=== PATIENT | male | born 1975 | race Caucasian/White ===

== ENCOUNTER 2024-04-10 08:25 | Emergency (ER) | payer SELFPAY ==
--- NOTE | ~2024-04-10 | XR_ITS ---
EXAMINATION: XR FOOT, LEFT CLINICAL INFORMATION: Ulcer great toe R/O osteomyelitis COMPARISON: None available. TECHNIQUE: AP, lateral, and oblique views of the left foot. FINDINGS: Soft tissue defect and swelling of the distal hallux. This is consistent with ulcer. No underlying bony erosion or focal osteopenia. No fracture, dislocation, or focal bony abnormality. There is normal alignment. Normal plantar arch. Joint spaces appear normal. There is a tiny plantar calcaneal spur. XR/XR foot LT min 3V IMPRESSION: 1. Soft tissue ulceration with mild soft tissue swelling of the hallux. No underlying bony erosion or evidence of osteomyelitis radiographically. Electronically signed by: Brodie Pierce MD 04/10/2024 11:03 AM LORE
--- NOTE | ~2024-04-10 | US_ITS ---
EXAMINATION: US TRIPLEX LOWER EXTREMITY, LEFT CLINICAL INFORMATION: Left lower extremity swelling, rule out DVT. COMPARISON: None available. TECHNIQUE: Color-flow triplex imaging with spectral analysis and compression Doppler were performed on the left lower extremity. FINDINGS: Nonocclusive thrombus is seen throughout the proximal, mid, and distal LEFT femoral vein, and extending throughout the left popliteal vein. The left deep calf veins remain patent. There is edema of the left lower extremity. Normal respiratory variation, normal compression and augmented flow are noted throughout the RIGHT lower extremity. The visualized common femoral vein, superficial femoral vein, profunda femoral vein, popliteal vein and midcalf peroneal and posterior tibial venous segments show no evidence of deep venous thrombosis. There is no Connolly's cyst. US/US venous duplex LE LT IMPRESSION: -Positive LEFT lower extremity DVT involving the femoral and popliteal veins. -Negative for RIGHT lower extremity present DVT. Electronically signed by: Brodie Pierce MD 04/10/2024 11:06 AM LORE
[2024-04-10 08:31] VITALS: BP 147/83; PULSE 86; RESP 20; TEMP 36.5; O2SAT 96; BMI 38.4
--- NOTE | 2024-04-10 09:14 | ED.EXTPRO ---
HPI - Extremity Problem General Chief complaint: Extremity Problem Stated complaint: Bilateral foot swelling Time Seen by Provider: 04/10/24 08:55 Source: patient and other (Girlfriend, Rachna) Mode of arrival: ambulatory Limitations: no limitations History of Present Illness ED Provider: Dr. Agustin Norton HPI Narrative: 48-year-old male with a history of diabetes, noncompliant with medications secondary to loss of insurance who presents emergency department for evaluation of lower extremity swelling. 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 Patient states that he had a blister to his left great toe in his left foot and leg became red and the swelling got worse a proximally 1 month prior. He states that he was seen at [facility] and was started on 2 antibiotics for 2 weeks. He states he completed the antibiotics and the redness and swelling did not improve. He states that since being on the antibiotics he was also developed diarrhea which she states is loose stool 6 times per day. Patient states that he did get a new job and he was having difficulty getting his work boots on due to the swelling. He denied fever, chills, chest pain, shortness of breath. He has had urinary frequency and increased thirst but he was not been on his diabetic medications he was not been checking his blood sugars. Related Data Previous Rx's ?Medication ?Instructions ?Recorded apixaban 5 mg (74 tabs) tablets in 5 mg PO BID #74 ea 04/10/24 a dose pack (Eliquis DVT-PE Treat 30D Start) apixaban 5 mg tablet (Eliquis) 5 mg PO Q12H 30 days #60 tabs 04/10/24 metformin 1,000 mg tablet 1,000 mg PO BID 30 days #60 tabs 04/10/24 Allergies Allergy/AdvReac Type Severity Reaction Status Date / Time No Known Allergies Allergy Verified 04/10/24 08:33 Review of Systems Review of Systems: Yes all other systems are reviewed and are negative [facility] Past Medical History Medical History (Updated 04/10/24 @ 12:20 by Agustin Norton MD) Hernia Diabetes Surgical History (Updated 04/10/24 @ 09:16 by Beatris Whelan) H/O adenoidectomy Social History Social History Smoked in Last 30 Days: No Use of substances other than those prescribed or required for medical reasons: No Advance Directives: No Advance Directives Information Provided: Yes Physical Exam Vital Signs: Vital Signs: Last Vital Signs Temp 98.8 F 04/10/24 10:32 Pulse 78 04/10/24 10:32 Resp 17 04/10/24 10:32 BP 144/80 H 04/10/24 10:32 Pulse Ox 93 04/10/24 10:32 O2 Del Method Room Air 04/10/24 10:32 BMI result Body Mass Index 38.4 Vital signs revealed an elevated blood pressure of 147/83 otherwise unremarkable Exam: General: Awake, alert in no distress, weight is 131.9 kg, elevated BMI 38.4 kg per m2 Head: Normocephalic, atraumatic EENT: PERRL, Lids normal, sclera normal, conjunctiva normal, nose normal , ears normal, throat without erythema or exudates Neck: Supple, no adenopathy Lung: breath sounds symmetric, no wheezing, rales or rhonchi Chest: symmetric movement, nontender Heart: regular rate and rhythm, normal S1, S2 no murmurs or rubs Abdomen: Obese, soft, non-tender, nondistended, normal bowel sounds Back: no vertebral tenderness, no CVAT Extremities: Patient has 1+ pitting edema to the left lower extremity from the foot to just below the knee, he has trace to 1+ pitting edema right lower extremity. Erythema with increased warmth to of the left foot to just below the knee. Patient does have a superficial skin ulcer the dorsal medial aspect of the right great toe Neuro: Awake, alert, oriented, normal speech, cranial nerves intact, moves all extremities symmetrically Psych: Pleasant, cooperative Medical Decision Making Medical Decision Making MDM Narrative: 48-year-old male with a history of diabetes, noncompliant with medications secondary to loss of insurance who presents emergency department for evaluation of bilateral lower extremity swelling, left greater than right with erythema and increased warmth of the left lower extremity. Patient states he was left lower extremities is chronically larger than the right secondary to a Connolly's cyst. Patient was seen several weeks prior at [facility] and diagnosed with cellulitis of the left lower extremity and treated with 2 antibiotics with no improvement of his symptoms. Patient states his left lower extremity swelling is gotten worse and I was right lower extremity is swollen as well. He also has a nonhealing skin ulcer to his left great toe. Patient was had urinary frequency and increased thirst with no other concerning systemic symptoms. Vital signs revealed an elevated blood pressure otherwise unremarkable. Physical examination did reveal asymmetry of the lower extremities left greater than right with erythema and increased warmth on the left compared to the right and a nonhealing skin ulcer to the dorsal medial aspect of the left great Toe. Differential diagnosis: ?Includes but is not limited to cellulitis, osteomyelitis of the left great toe, DVT, peripheral edema, hyperglycemia, DKA, electrolyte abnormalities, anemia, C difficile colitis, infectious diarrhea, infectious diarrhea Following evaluation was ordered: CBC, CMP, BNP, beta hydroxybutyrate, VBG, lactic acid, blood cultures x2, magnesium, ESR, CRP, C diff, GI panel Course: My interpretation patient's laboratory evaluation is as follows: CBC was normal. Glucose elevated 390. Electrolytes and LFTs were normal. CRP and ESR were normal. Lactic acid was elevated at 2.3. Patient's pH was low at 7.34. Beta hydroxybutyrate was normal. BNP was below detectable limits. Hemoglobin A1c was elevated 13 Ultrasound of the left lower extremities consistent with DVT. X-ray of the left foot did not reveal any evidence for osteomyelitis of the great toe. Patient was given metformin 1000 mg, normal saline IV x1 L for his elevated glucose. He was given his 1st dose of Eliquis 10 mg orally for his DVT. Patient states that his health insurance through his work should kick in next month and he was given a manufacture coupon for his 1st month of Eliquis. Patient was not had a PCP and he was given the numbers for [facility] providers, and our on-call provider, Dr. Putnam, Admission/Observation Consideration of admission/observation: Escalation of care including admission/observation considered (Yes) Lab Data MDM Lab Attestation statement: I reviewed the patient's lab results. 04/10/24 09:25 04/10/24 09:25 Labs: Lab Results 04/10/24 04/10/24 04/10/24 Range/Units 09:25 09:42 09:47 WBC 5.9 (4.8-10.8) X10*3/uL RBC 5.18 (4.60-5.80) X10*6/uL Hgb 15.4 (14.0-18.0) g/dl Hct 45.0 (42.0-52.0) % MCV 86.9 (80.0-98.0) fL MCH 29.7 (27.0-33.0) pg MCHC 34.2 (31.0-36.0) g/dl RDW 12.1 (11.0-16.0) % Plt Count 259 (160-400) X10*3/uL MPV 10.1 (9.4-12.4) fL Immature Gran % (Auto) 0.3 (0.0-0.4) % Neut % (Auto) 69.0 (45-73) % Lymph % (Auto) 16.0 L (20-40) % Orange % (Auto) 9.6 (2-11) % Eos % (Auto) 4.4 H (0-4) % Baso % (Auto) 0.7 (0-2) % Lymph # (Auto) 1.0 L (1.2-4.9) X10*3/uL Orange # (Auto) 0.6 (0.1-1.2) X10*3/uL Eos # (Auto) 0.3 (0.0-0.4) X10*3/uL Baso # (Auto) 0.0 (0.0-0.2) X10*3/uL Abs Immat Gran (auto) 0.02 (0.00-0.03) X10*3/uL Absolute Neuts (auto) 4.1 (2.0-8.3) x10*3/uL Absolute Nucleated RBC 0.000 (0.0-0.012) X10*3/uL Nucleated RBC % (auto) 0.0 (0.0-0.2) /100WBC ESR 11 (0-15) MM/HR VBG pH 7.34 (7.32-7.43) VBG pCO2 56 mmHg VBG pO2 33 mmHg VBG HCO3 31 H (22-26) mmol/L VBG O2 Saturation 49.0 % VBG Base Excess 3.6 mmol/L Sodium 136 (135-145) mmol/L Potassium 4.5 (3.3-5.1) mmol/L Chloride 104 (96-108) mmol/L Carbon Dioxide 23 (22-29) mmol/L Anion Gap 14 (12-20) BUN 16 (9-16) mg/dL Creatinine 1.24 (0.5-1.4) mg/dL Estim Creat Clear Calc 101.5 Estimated GFR > 60 Random Glucose 390 H* (60-115) mg/dL Estimat Average Glucose 326 mg/dL Hemoglobin A1c % 13.0 H (<6.0) % Lactic Acid 2.3 H* (0.5-2.0) mmol/L Calcium 10.1 (8.4-10.2) mg/dL Magnesium 2.2 (1.6-2.6) mg/dL Total Bilirubin 0.5 (0.0-1.0) mg/dL AST 23 (5-37) U/L ALT 41 H (0-40) U/L Alkaline Phosphatase 71 (39-117) U/L C-Reactive Protein 0.26 (< or = 0.50) mg/dL B-Natriuretic Peptide < 10 (<100) pg/mL Total Protein 7.4 (6.5-8.0) g/dL Albumin 4.2 (3.5-5.0) g/dL Beta-Hydroxybutyrate 0.11 (0.02-0.27) mmol/L Independent Interpretation I performed an independent interpretation of an: Plain X-Ray Interpretation: My interpretation of the patient's left foot x-ray is as follows: No acute disease Radiology Impression Discussion of test interpretation with radiology: I have reviewed the radiologist's reading. Radiologist Impression: XR foot LT min 3V IMPRESSION: 1. Soft tissue ulceration with mild soft tissue swelling of the hallux. No underlying bony erosion or evidence of osteomyelitis radiographically. Electronically signed by: Brodie Pierce MD 04/10/2024 11:03 AM EST Dictated By: Brodie Pierce MD venous duplex LE LT IMPRESSION: -Positive LEFT lower extremity DVT involving the femoral and popliteal veins. -Negative for RIGHT lower extremity present DVT. Electronically signed by: Brodie Pierce MD 04/10/2024 11:06 AM EST Independent Historian Clinical information obtained from an independent historian. History obtained from or confirmed by: Other (Girlfriend) Prescription Management I considered prescription management with: Other (Anticoagulant: Eliquis, antihyperglycemic: Metformin) Chronic Conditions Patient?s care impacted by: Diabetes Critical Care Time Critical Care Time Critical Care Time: Yes Total Critical Care Time: 35 Attestation: Critical Care: The patient was critically ill with a high probability of imminent or life threatening deterioration. I spent greater than 30 minutes of discontinuous time evaluating the patient,delivering critical care at the bedside, discussing and evaluating pertinent data with consultants. Critical care time does not include time spent performing separately billable procedures or teaching. Total time spent performing critical care was 35 minutes. Discharge Plan Discharge Clinical Impression: Acute hyperglycemia Deep vein thrombosis of lower extremity Qualifiers: Affected thrombotic vein of extremity: femoral Chronicity: acute Laterality: left Qualified Code(s): I82.412 - Acute embolism and thrombosis of left femoral vein Patient Disposition: Home, Self-Care Instructions: Deep Vein Thrombosis (ED) Additional Instructions: Your blood work did reveal an elevated glucose of 390 and an elevated hemoglobin A1c of 10 (normal is between 6 and 7). This is consistent with your diabetes being out of control. I am restarting your metformin 1000 mg every 12 hours. Try to get this medication through good [facility] and this may make the medication more affordable The x-ray of your left foot did not reveal any infection of the bone of the great toe. This is reassuring. The nonhealing ulcer on your toes probably caused by your diabetes. Your white blood cell count, ESR and CRP (inflammatory markers) he has are normal suggesting that you do not have an infection of your toe or leg is the cause of the redness and swelling. The sound of your left leg did reveal blood clots in your legs which is consistent with a deep venous thrombosis (DVT). This is treated with blood thinners for 3-6 months. Take Eliquis (apixaban) 5 mg pills 2 pills every 12 hours for 1 week and then 1 pill every 12 hours for 3-6 months. Your doctor needs to decide how long you are on this medication and when you can stop it. Do not stop this medication unless you are advised to do sound by your doctor. Please return to the emergency department if your symptoms get worse or if you develop any symptoms that are concerning to you. Try calling the following numbers to see if you can get a primary care provider to help you with your medical problems. [facility] PCP referral line [facility] Adult primary care and family medicine [facility] Dr Velez off his is on-call for the medicine service today. I want you to call his office today to see if he has any availability to follow you up for your blood clot in your left leg and help manage her diabetes. Prescriptions: New Eliquis DVT-PE Treat 30D Start 5 mg (74 tabs) tablets,dose pack 5 mg PO BID Qty: 74 0RF Eliquis 5 mg tablet 5 mg PO Q12H 30 Days Qty: 60 6RF metformin 1,000 mg tablet 1,000 mg PO BID 30 Days Qty: 60 6RF Print Language: Hungarian
[2024-04-10 09:31] LABS: MANUAL DIFF FLAG NO
[2024-04-10 09:34] LABS: Basophils Percent Auto 0.7 % (0-2); Eosinophils Absolute Auto 0.3 X10*3/uL (0.0-0.4); Eosinophils Percent Auto 4.4 % (0-4); Hemoglobin 15.4 g/dl (14.0-18.0); Imm Gran Abs Auto 0.02 X10*3/uL (0.00-0.03); Imm Gran Pct Auto 0.3 % (0.0-0.4); Mean Corpuscular HGB Conc 34.2 g/dl (31.0-36.0); Mean Corpuscular Hemoglobin 29.7 pg (27.0-33.0); Mean Corpuscular Volume 86.9 fL (80.0-98.0); Mean Platelet Volume 10.1 fL (9.4-12.4); Monocytes Absolute Auto 0.6 X10*3/uL (0.1-1.2); Monocytes Percent Auto 9.6 % (2-11); Neutrophils Absolute Auto 4.1 x10*3/uL (2.0-8.3); Platelet Count 259 X10*3/uL (160-400); Red Blood Count 5.18 X10*6/uL (4.60-5.80); Red Cell Distribution Width 12.1 % (11.0-16.0); White Blood Count 5.9 X10*3/uL (4.8-10.8)
[2024-04-10 09:42] LABS: Estimated Average Glucose 326 mg/dL; Hemoglobin A1C 466.6351 umol/L; Total Hemoglobin (HGBA1C) 3933.8856 umol/L
[2024-04-10 09:48] LABS: C Reactive Protein 0.26 mg/dL (< or = 0.50)
[2024-04-10 09:51] LABS: Venous Blood Gas Refer to POC result
[2024-04-10 09:52] LABS: VBG Base Excess 3.6 mmol/L; VBG HCO3 31 mmol/L (22-26); VBG pCO2 56 mmHg; VBG pH 7.34 (7.32-7.43); VBG pO2 33 mmHg
[2024-04-10 09:54] LABS: Alanine Aminotransferase 41 U/L (0-40); Albumin Level 4.2 g/dL (3.5-5.0); Alkaline Phosphatase 71 U/L (39-117); Anion Gap 14 (12-20); Aspartate Amino Transferase 23 U/L (5-37); Bilirubin Total 0.5 mg/dL (0.0-1.0); Blood Urea Nitrogen 16 mg/dL (9-16); Calcium 10.1 mg/dL (8.4-10.2); Carbon Dioxide 23 mmol/L (22-29); Chloride 104 mmol/L (96-108); Creatinine Clr Calc Pharmacy 101.5; Estimated Glomerular Filt Rate > 60; Glucose Random 390 mg/dL (60-115); Potassium 4.5 mmol/L (3.3-5.1); Sodium 136 mmol/L (135-145); Total Protein 7.4 g/dL (6.5-8.0)
[2024-04-10 09:55] LABS: Lactic Acid 2.3 mmol/L (0.5-2.0)
[2024-04-10 09:56] LABS: B Type Natriuretic Peptide < 10 pg/mL (<100)
[2024-04-10 10:03] LABS: Beta-Hydroxybutyrate 0.11 mmol/L (0.02-0.27); Magnesium 2.2 mg/dL (1.6-2.6)
[2024-04-10 10:25] LABS: Erythrocyte Sedimentation Rate 11 MM/HR (0-15)
[2024-04-10 10:32] VITALS: BP 144/80; PULSE 78; RESP 17; TEMP 37.1; O2SAT 93
[2024-04-10 11:30] LABS: Reflex Lactate? Lactic Acid Added
--- NOTE | 2024-04-10 11:36 | MHC.EDTECH ---
Per provider lactic acid repeat to be cancelled. This tech made RN aware.
[2024-04-10] MEDS: 0.9 % Sodium Chloride 1,000 ML 999 ML IV (11:56)
[2024-04-10] MEDS: Apixaban 5 MG TABLET 10 MG PO (11:59)
[2024-04-10] MEDS: metFORMIN HCl 1,000 MG TABLET 1000 MG PO (11:59)
[2024-04-10 12:00] LABS: Glucose, Whole Blood 289 mg/dL (60-115)
[2024-04-10 12:22] VITALS: BP 147/94; PULSE 83; RESP 18; TEMP 36.9; O2SAT 94
[2024-04-10 13:31] VITALS: BP 147/94; PULSE 83; RESP 18; TEMP 36.9; O2SAT 94
== END 2024-04-10 13:32 | disposition home or self-care (01) ==
PROVIDERS: Emergency Provider Emergency Medicine Emergency Medical Services
DX: I82.412 Acute embolism and thrombosis of left femoral vein (principal); E11.65 Type 2 diabetes mellitus with hyperglycemia
CPT/HCPCS: 36415; 73630; 80053; 82010; 82803; 82947; 83036; 83605; 83735; 83880; 85025; 85652; 86140; 87040; 93971; 99284

== ENCOUNTER → 2024-04-10 09:12 | Outpatient (BNV) | payer SELFPAY | PROVIDERS: Emergency Provider Emergency Medicine Emergency Medical Services; Visit Provider Radiology Diagnostic Radiology | DX: I82.432 Acute embolism and thrombosis of left popliteal vein (principal); L97.529 Non-pressure chronic ulcer of other part of left foot with unspecified severity | CPT/HCPCS: 73630; 93971 ==

== ENCOUNTER 2024-06-25 21:30 | Inpatient (IN) | payer OTHER, SELFPAY ==
--- NOTE | ~2024-06-25 | US_ITS ---
CLINICAL HISTORY: swelling, hx dvt Venous duplex ultrasound left lower extremity Comparison: US/SR - US VENOUS DUPLEX LE LT - 04/10/24 10:12 EST Findings: Redemonstration of thrombus within the left superficial femoral and popliteal veins, similar prior exam. A duplicated left femoral vein appears patent. No popliteal cyst. Right common femoral vein is imaged and patent. IMPRESSION: Redemonstration of deep vein thrombosis with thrombus within the left superficial femoral and popliteal veins, similar prior exam. This document has been electronically signed by: Sage Campa MD, PHD on 06/26/2024 03:43:49
[2024-06-25 21:46] VITALS: BP 137/81; PULSE 110; RESP 20; TEMP 37; O2SAT 95; BMI 39.3
[2024-06-25 21:59] LABS: MANUAL DIFF FLAG NO
[2024-06-25 22:00] LABS: Basophils Percent Auto 0.3 % (0-2); Eosinophils Absolute Auto 0.3 X10*3/uL (0.0-0.4); Eosinophils Percent Auto 2.7 % (0-4); Hemoglobin 15.3 g/dl (14.0-18.0); Imm Gran Abs Auto 0.04 X10*3/uL (0.00-0.03); Imm Gran Pct Auto 0.3 % (0.0-0.4); Lymphocytes Absolute Auto 1.7 X10*3/uL (1.2-4.9); Lymphocytes Percent Auto 14.1 % (20-40); Mean Corpuscular HGB Conc 34.8 g/dl (31.0-36.0); Mean Corpuscular Hemoglobin 29.7 pg (27.0-33.0); Mean Corpuscular Volume 85.3 fL (80.0-98.0); Monocytes Absolute Auto 1.2 X10*3/uL (0.1-1.2); Monocytes Percent Auto 9.6 % (2-11); Neutrophils Absolute Auto 8.8 x10*3/uL (2.0-8.3); Platelet Count 249 X10*3/uL (160-400); Red Blood Count 5.16 X10*6/uL (4.60-5.80); Red Cell Distribution Width 12.3 % (11.0-16.0)
[2024-06-25 22:16] LABS: Alanine Aminotransferase 39 U/L (0-40); Albumin Level 4.4 g/dL (3.5-5.0); Alkaline Phosphatase 64 U/L (39-117); Anion Gap 14 (12-20); Aspartate Amino Transferase 22 U/L (5-37); Bilirubin Total 0.4 mg/dL (0.0-1.0); Blood Urea Nitrogen 19 mg/dL (9-16); Calcium 9.7 mg/dL (8.4-10.2); Carbon Dioxide 26 mmol/L (22-29); Chloride 101 mmol/L (96-108); Creatinine Clr Calc Pharmacy 122.5; Estimated Glomerular Filt Rate > 60; Glucose Random 328 mg/dL (60-115); Potassium 4.3 mmol/L (3.3-5.1); Sodium 137 mmol/L (135-145); Total Protein 7.9 g/dL (6.5-8.0)
[2024-06-26] VITALS (9 sets, daily range): BP systolic 124–144; BP diastolic 66–82; PULSE 104–114; RESP 14–20; TEMP 36.7–37.3; O2SAT 93–98
[2024-06-26] MEDS: Acetaminophen 325 MG TABLET 650 MG PO (01:39)
--- OUTSIDE RECORDS SUMMARY | 2024-06-26 04:05 | XMS_ITS | Encounter Summary ---
Author Organization [facility] Address [address] [place] [address] Care Team Providers Care Plant Pathology Teacher Name Role Phone Edelmira Sage MD Primary Care Provider Encounter Details Date Type Department Care Team (Late st Contact Info) Description 05/30/2023 [employer] Message [facility] [employer] Management [address] [place] [address] Mychart, Generic Provider [address] [place], [place] [id number] payment plan Social History Tobacco Use Types Packs/Day Years Used Date Smoking Tobacco: Never Smokeless Tobacco: Never Alcohol Use Standard Drinks/Week Comments Yes 0 (1 standard drink = 0.6 oz pur e alcohol) 1-2 times a month. 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
--- OUTSIDE RECORDS SUMMARY | 2024-06-26 04:05 | XMS_ITS | Clinical Summary ---
Author Organization [facility] Address [address] [place] [address] Care Team Providers Care Purchasing Clerk Name Role Phone Edelmira Sage MD Primary Care Provider [phone] Allergies Active Allergy Reactions Criticality Noted Date Comments Empagliflozin Suicidal ideation High 11/13/2022 Medications * This document contains information received from the source organization and may not represent a complete record from that organization. cetirizine (ZyrTEC) 10 mg tablet Take 10 mg by mouth daily. Active lisinopriL (PRINIVIL,ZESTR IL) 5 mg tablet Take 5 mg by mouth daily. Active fish oil 340-1,000 mg capsule Take 1,000 mg by mouth once a day. 1200 mg daily Active flash glucose scanning reader ([facility] Venus 14 Day [place]) [facility] Use as directed. 1 each 0 Active rosuvastatin (CRESTOR) 40 mg tablet Take 1 tablet (40 mg total) by mouth daily. 90 tablet 3 1 Active valACYclovir (VALTREX) 1 gram tablet as needed. Active tirzepatide 15 mg/0.5 mL pen injector Inject 0.5 mL (15 mg total) under the skin every 7 days. After 4 doses of 12.5 mg 6 mL 3 3 Active glipiZIDE XL (GLUCOTROL XL) 2.5 mg tablet Take 3 tablets (7.5 mg total) by mouth 2 times a day. 180 tablet 11 3 Active Additional Information Patient taking differently: 2.5 mgoralDaily, Reported on 01/29/2023 methylPREDNISol one (MEDROL DOSEPACK) 4 mg tabletIndicatio ns:Cervical radiculopathy,C hronic right shoulder pain Take 1 tablet (4 mg total) by mouth See admin instructions. Use as directed by package instructions 21 tablet 3 Active flash glucose sensor (FreeStyle Venus 14 Day Sensor) kitIndications: Type 2 diabetes mellitus with hyperglycemia, without long-term current use of insulin ([facility]) Use as directed. 2 kit 3 Active tirzepatide (Mounjaro) 10 mg/0.5 mL pen injector Inject 0.5 mL (10 mg total) under the skin every 7 days. 2 mL 1 06/19/2023 5:02 AM EST 4 Active metFORMIN ER (GLUCOPHAGE XR) 500 mg tablet TAKE 2 TABLETS BY MOUTH 2 TIMES A DAY WITH MEALS. 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 Pt appears motivated now to be compliant with medication and lifestyle modifications: increase physical activity low cholesterol diet, weight control and daily exercise discussed, home glucose monitoring emphasized, all medications, side effects and compliance discussed carefully and glycohemoglobin and other lab monitoring discussed Prevention and treatment of hypoglycemia. Prevention and treatment of hypoglycemia was discussed. Please find orders and patient instructions details in my progress note. Briefly: will benefit from GIP/GLP-1 - titrate as tolerated tamanna instruction provided to , including: purpose and action, New Pen Setup, injection technique, sites for injection. Potential side-effects including but not limited to nausea/vomiting and rare cases of pancreatitis were discussed in great detail. Patient was instructed to notify office of any low BG's/abdominal pain/vomitting. We discussed findings of medullary thyroid cancer in animal models while this class of medications was in research stage. No changes in GUTIERREZ Optimize metformin by adding SGLT2 We discussed how this medication works and potential side effects in great detail. The patient advised to notify me if any concern of side effects including yeast infection. Mixed dyslipidemia 10/26/2019 Other hyperlipidemia 03/20/2019 Albuminuria 05/19/2018 Fatty liver 05/19/2018 Assessment & Plan (09/24/2022 10:34 AM EDT): In a light of high VAT and DMT2 Suresh Thompson Jr is high risk for VENEGAS Meaningful weight loss of >10% is required for VENEGAS prevention Type 2 diabetes mellitus wit h complication, without long-term current use of insulin 12/06/2017 Essential hypertension 12/06/2017 Class 2 severe obesity due t o excess calories with serious comorbidity and body mass index (BMI) of 35.0 to 35.9 in adult 12/06/2017 Assessment & Plan (09/24/2022 9:42 AM EDT): Obesity Class III with co-morbidities - Stage 2 and abnormal weight gain in the setting of T2DM uncontrolled Obesity, likely multifactorial Possible metabolic abnormalities related to recent weight gain. The readiness for intensive lifestyle modifications was assessed and the patient appears to be motivated to make changes. Intensive lifestyle modifications were discussed in detail and listed in the patient instructions Mr. Thompson was advised to continue a structural lifestyle modification program. Patient will be managed with LSM and optimized medical treatment of T2DM. Mr. Thompson at high risks for co-morbidities related to obesity, which include, but not limited cardiovascular diseases:CAD, CHF, poor controlled HTN, stroke, respiratory conditions, such CRPD, MARY, GI condition: NAFLD and VENEGAS as a concerning start for developing liver cirrhosis, depression, cancers of colon, liver and etc An initial weight loss goal of 5 to 7 percent of body weight is realistic .A weight loss of more than 5 percent can reduce risk factors for cardiovascular disease, such as dyslipidemia, hypertension and diabetes mellitus Encounters Date Type Department Care Team Description 04/24/2024 Hospital Encounter [facility] Endoscopy [address] [place] [address] José Manuel Dillon MD 04/24/2024 Orders Only [facility] Colorectal Surgery [address] [place] [address] Principal Java Developer: José Manuel Cason MD Encounter for screening colonoscopy (Primary Dx) from Last 3 Months Immunizations Immunization Administration Dates Next Due Influenza, Quadrivalent, Recombinant, Injectable , PF 03/15/2020,03/26/2019 Family History Medical History Relation Name Comments Blood Clots Father adopted Diabetes Maternal Grandfather No Known Problems Mother Pancreatic cancer Paternal Grandfather Relation Name Status Comments Father Maternal Grandfather Mother Paternal Grandfather Social History Tobacco Use Types Packs/Day Years Used Date Smoking Tobacco: Never Smokeless Tobacco: Never Tobacco Cessation:Counseling Given: Not Answered Alcohol Use Standard Drinks/Week Comments Yes 0 (1 standard drink = 0.6 oz pur e alcohol) 1-2 times a month. 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 Not on file Not on file Last Filed Vital Signs Vital Sign Reading Time Taken Comments Blood Pressure 132/81 01/29/2023 3:19 PM EDT Pulse 88 01/29/2023 3:19 PM EDT Temperature 36.1 ??C (97 ??F) 01/29/2023 3:19 PM EDT Respiratory Rate 16 01/29/2023 3:19 PM EDT Oxygen Saturation 98% 01/29/2023 3:19 PM EDT Inhaled Oxygen Concentration - - Weight 117.9 kg (260 lb) 01/29/2023 3:19 PM EDT Height 184.5 cm (6' 0.64 ) 01/18/2023 2:01 PM ED T Body Mass Index 34.65 01/18/2023 2:01 PM EDT Plan of Treatment Health Maintenance Due Date Last Done Comments HIV Screening 1975 Ophthalmology Exam 1983 Hepatitis B Vaccines (1 of 3 - 19+ 3-dose series) 1992 Urine Microalbumin 07/12/2021 07/12/2020, 1 05/20/2018, 10/30/2018, Additional history exists Hemoglobin A1C 07/16/2022 04/17/2022, 1211/2021, 09/26/2021, Additional history exists Pneumococcal Vaccine: 50+ Ye ars (2 of 2 - PPSV23) 03/23/2023 03/23/2022 Zoster Vaccines (1 of 2) 2023 DTaP,Tdap,and Td Vaccines (2 - Td or Tdap) 12/08/2023 12/07/2013 COVID-19 Vaccine (2 - 2023-2 5 season) 2024 09/08/2020 Influenza Vaccine (#1) 2024 , 03/17/2021, 03/15/2020, Additional history exists Basic Metabolic Panel 01/30/2024 01/29/2023 , 07/12/2020, 03/20/2019, Additional history exists Alcohol/Substance Use Screening 05/06/2024 Depression Evaluation 05/06/2024 Social Drivers of Health Erna ual Screening 05/06/2024 Colonoscopy 08/18/2024 08/18/2021 RSV Vaccine (60+ years old a nd patients) (1 - 1-dose 75+ series) 2048 Hepatitis C Screening Completed 09/26/2011 Procedures * Due to [place] state law, this organization might not be sharing negative HIV tests. Procedure Name Priority Date/Time Associated Diagnosis Comments BASIC METABOLIC PANEL STAT 01/29/2023 3:29 PM EDT POCT GLYCOSYLATED HEMOGLOBIN (HGB A1C) Routine 04/17/2022 8:04 AM EST Type 2 diabetes mellitus with hyperglycemia, without long-term current use of insulin ([facility]) ([facility]) COLONOSCOPY 08/18/2021 MICROALBUMIN, RANDOM URINE WITH CREATININE Routine 07/12/2020 9:14 AM EST Type 2 diabetes mellitus without complication, without long-term current use of insulin ([facility]) ([facility]) Albuminuria Mixed dyslipidemia Class 3 severe obesity due to excess calories with serious comorbidity and body mass index (BMI) of 40.0 to 44.9 in adult ([facility]) ([facility]) HEPATITIS C ANTIBODY, CONVERSION Routine 09/26/2011 8:38 AM EDT from Last 3 Months or Most Recently Relevant to Health Maintenance Results * Due to [place] state law, this organization might not be sharing negative HIV tests. * (ABNORMAL) Basic Metabolic Panel (01/29/2023 3:29 PM EDT) NA 135(L) 136 - 145 mmol/L 01/29/2023 4:32 PM EDT [facility] K 4.0 3.5 - 5.3 mmol/L 01/29/2023 4:32 PM EDT [facility] Cl 105 98 - 107 mmol/L 01/29/2023 4:32 PM EDT [facility] CO2 23 22 - 30 mmol/L 01/29/2023 4:32 PM EDT [facility] BUN 17 7 - 18 mg/dL 01/29/2023 4:32 PM EDT [facility] Creatinine 1.10 0.60 - 1.30 mg/dL 01/29/2023 4:32 PM EDT [facility] Glucose 118(H) 70 - 99 mg/dL 01/29/2023 4:32 PM EDT [facility] Calcium 9.1 8.5 - 10.1 mg/dL 01/29/2023 4:32 PM EDT [facility] Anion Gap 7 5 - 15 01/29/2023 4:32 PM EDT [facility] eGFR 82 >=60 mL/min/1 .73m2 01/29/2023 4:32 PM EDT [facility] Comment:The estimated glomer ular filtration rate (eGFR) is calculated using a new formula developed by the NKF-ASN task force to eliminate race-based correction factors. The new formula uses serum/plasma creatinine, age, and gender to determine eGFR. A value below 60mls/min might indicate kidney disease and will be flagged. For additional information, see Young et al, Am J Kidney Dis. 2021;79(2):268- 288, A Unifying Approach for GFR estimation: Recommendations of the NKF-ASN Task Force on Reassessing the Inclusion of Race in Diagnosing Kidney Disease . Blood Structure of peripheral vein / Unknown Venipuncture / Unknown 01/29/2023 3:29 PM EDT 01/29/2023 3:37 PM EDT us Abhishek Guzman MD LAB BLOOD ORDERABLES Final Result Performing Organization Address City/[facility]/ZIP Co de Phone Number [facility] [address] [place] [id number], [place] * (ABNORMAL) POCT Glycosylated Hemoglobin (HGB A1C), interfaced (04/17/2022 8:04 AM EST) Hemoglobin A1C, POCT 10.9(H) <=5.6 % 04/17/2022 8:18 AM EST [facility], P[facility] Comment: A1C Recommendation for Non- Adults with Diabetes: <7.0% ADA 2011 Standards of Medical Care in Diabetes Blood 04/17/2022 8:04 AM EST 04/17/2022 8:18 AM EST us Lizbet Christian MD LAB POCT ORDERABLES - DEVIC E Final Result [email or web address], POC [address] [place] [address], [place] * COLONOSCOPY (08/18/2021) Narrative Procedure Note Dutch Andujar MD - 08/18/2021 12:17 PM EDT Gastroenterology Patient Name: Suresh Thompson Procedure Date: 08/18/2021 12:17 PM Date of : 1975 Admit Type: Outpatient Age: 46 Room: [facility] 01 Gender: Male Note Status: Finalized Attending MD: Dutch Andujar , Procedure: Colonoscopy Indications: Screening for colorectal malignant neoplasm Comorbidities Providers: Dutch Andujar Referring MD: Requesting Provider: Medicines: Fentanyl 125 micrograms IV, Midazolam 5 mg IV Estimated Blood Loss: Estimated blood loss was minimal. Procedure: Pre-Anesthesia Assessment: - Prior to the procedure, a History and Physical was performed, and patient medications and allergies were reviewed. The patient is competent. The risks andbenefits of the procedure and the sedation options and riskswere discussed with the patient. All questions were answered and informed consent was obtained. Patientidentification and proposed procedure were verified by the physician,the nurse and the r and d lab technician in the endoscopy suite. Mental Status Examination: alert and oriented. Airway Examination: normal oropharyngeal airway and neck mobility. Respiratory Examination: clear toauscultation. CV Examination: normal. ASA Grade Assessment: III - A patient with severe systemic disease. After reviewingthe risks and benefits, the patient was deemed insatisfactory condition to undergo the procedure. The anesthesia plan was to use moderate sedation / analgesia (conscious sedation). Immediately prior to administration of medications, the patient was re-assessed for adequacyto receive sedatives. The heart rate, respiratory rate, oxygen saturations, blood pressure, adequacy ofpulmonary ventilation, and response to care were monitored throughout the procedure. The physical status of the patient was re-assessed after the procedure. After I obtained informed consent, the scope was passed under direct vision. Throughout the procedure, the patient's blood pressure, pulse, and oxygen saturations were monitored continuously. The Colonoscope was introduced through the anus and advanced to the cecum, identified by appendiceal orifice and ileocecal valve.The colonoscopy was performed without difficulty. Thepatient tolerated the procedure well. The quality of the bowel preparation was good. The bowel preparation used was Miralax. Findings: An anal fissure was found on perianal exam. A 4 mm polyp was found in the sigmoid colon. The polyp was sessile.The polyp was removed with a cold snare. Resection and retrieval were complete. A 12 mm polyp was found in the anal canal. The polyp waspedunculated. The polyp was removed with a hot snare. Resection and retrieval were complete. Estimated blood loss was minimal. The exam was otherwise without abnormality. Impression: - Anal fissure found on perianal exam. - One 4 mm polyp in the sigmoid colon, removed with acold snare. Resected and retrieved. - One 12 mm polyp at the anal canal, removed with a hot snare. Resected and retrieved. - The examination was otherwise normal. Recommendation: - Discharge patient to home (ambulatory). - High fiber diet. - Continue present medications. - Use original regular Metamucil one tablespoon POBID. - Await pathology results. - Repeat colonoscopy in 3 years for surveillance. - Return to referring physician as previouslyscheduled. Dutch Andujar, 08/18/2021 2:13:44 PM This report has been signed electronically. Number of Addenda: 0 Note Initiated On: 08/18/2021 12:17 PM us Dutch Andujar MD PROVATION PROCEDURE S Final Result * (ABNORMAL) Microalbumin, Random Urine with Creatinine (07/12/2020 9:14 AM EST) Microalbumin, Urine 14.0(H) 0.0 - 3.0 mg/dL 07/12/2020 10:18 AM EST [facility] Creatinine, Urine 147 30 - 150 mg/dL 07/12/2020 10:18 AM EST [facility] Microalb/Crea t Ratio, Random Urine 95.2(H) <30.0 mcg/mgCr 07/12/2020 10:18 AM EST [facility] Urine Voided urine specimen / Unknown Non-Blood Collection / Unknown 07/12/2020 9:14 AM EST 07/12/2020 9:20 AM EST us Lizbet Christian MD LAB URINE ORDERABLES Final Result [facility] [address] [place] [address], * HEPATITIS C ANTIBODY, CONVERSION (09/26/2011 8:38 AM EDT) Hepatitis C Antibody 0.18 <1.00 IV [facility] [employer] Comment: Negative Not infected with HCV, unless recent infection is suspected or other evidence exists to indicate HCV infection. 09/26/2011 8:38 AM EDT 09/26/2011 10:39 PM EDT us Alexandr Hammond LAB HISTORICAL RESULTS Final Res ult [facility] [employer] [address] [place] [address], from Last 3 Months or Most Recently Relevant to Health Maintenance Care Teams Purchasing Clerk Relationship Specialty Start Date End Date Edelmira Sage MD PCP - General Family Medicine 08/23/21
--- OUTSIDE RECORDS SUMMARY | 2024-06-26 04:05 | XMS_ITS | Encounter Summary ---
Author Organization [facility] Address [address] [place] [address] Care Team Providers Care Toll Line Inspector Name Role Phone Edelmira Sage MD Primary Care Provider [phone] Encounter Details Date Type Department Care Team ([facility] st Contact Info) Description 08/18/2021 Community Orders [facility] EpicCare Link [address] [place] [address] Pantera Campos MD [address] [place] [address] [place] [id number] Type 2 diabetes, uncontrolled, with neuropathy (CMS/HCC) (HCC) (Primary Dx); Mixed hyperlipidemia; Vitamin D deficiency disease; Type II diabetes mellitus with coma, uncontrolled (CMS/HCC) (HCC); Morbidly obese (CMS/HCC) (HCC) Social History Tobacco Use Types Packs/Day Years [...] Orientation Straight 12/19/2020 2: 24 PM EDT documented as of this encounter Plan of Treatment Not on file documented as of this encounter Visit Diagnoses Diagnosis Type 2 diabetes, uncontrolled, with neuropathy- Primary Type II or unspecified type diabetes mellitus with neurological manifestations, uncontrolled Mixed hyperlipidemia Vitamin D deficiency disease Unspecified vitamin D deficiency Type II diabetes mellitus with coma, uncontrolled Type II or unspecified type diabetes mellitus with other coma, uncontrolled Morbidly obese (HCC) Morbid obesity documented in this encounter Care Teams Toll Line Inspector Relationship Specialty Start Date End Date Edelmira Sage MD PCP - General Family Medicine 08/23/21 documented as of this encounter
--- OUTSIDE RECORDS SUMMARY | 2024-06-26 04:05 | XMS_ITS | Encounter Summary ---
Author Name [facility] [place] [facility] Address [address] [place] [address] Care Team Providers Care Grocery Team Member Name Role Phone FAYE WYMAN Primary Care Provider Unavailabl e Selected Encounter This section includes the information on record at [place] for the Encounter. Date/Time Encounter Type Encounter Description Reason Pro vider Source Jun 08, 2024 05:33 PM Outpatient Encounter ADMIN PAT ACTIVTIES (MASNONCT) I[facility] Encounter Template Text not used by [place] Plan of Treatment: Future Appointments (+ 6 months) and Future Tests (+/- 45 days) The Plan of Treatment section includes future care activities for the patient from all [place] treatmentfacilities. This section includes future appointments and future orders which are active, pending or scheduled. Future Appointments This section includes appointments that were scheduled to occur 6 months from the date of the Encounter, up to a maximum of 20 appointments. The data comes from all [place] treatment facilities. Appointment Date/Time Appointment Type Appointme nt Facility Name Jun 17, 2024 03:30 PM [facility] Jun 30, 2024 03:00 PM [facility] Jul 15, 2024 03:30 PM [facility] Jul 16, 2024 08:30 AM AMBULATORY - PSYCHIATRY [facility] Aug 24, 2024 03:30 PM [facility] Oct 16, 2024 03:30 PM [facility] Active, Pending, and Scheduled Orders This section includes a listing of several types of active, pending, and scheduled orders, including clinic medications orders, diagnostic test orders, procedure orders and consult orders; where the start date of the order is 45 days before the date of the Encounter or 45 days after the date of theEncounter. The data comes from all [place] treatment facilities. Test Date/Time Test Type Test Details Facility Name May 22, 2024 11:18 AM Consult Order TELE-EYE SCREENING CONSULT/SPOPC (OUTPT) Cons Condenser Operator's Choice [facility] May 22, 2024 12:08 PM Consult Order MENTAL HEALTH SERVICES/SPOPC OUTPT [facility] [place] [facility] [place] [facility] May 28, 2024 12:00 AM Laboratory - Chemistry Order MICROALBUMIN CREATININE RATIO PANEL URINE (RANDOM) [facility] Jul 10, 2024 12:00 AM Laboratory - Chemistry Order CBC AND DIFF (AUTO) BLOOD (LAV-BLOOD) [facility] Jul 10, 2024 12:00 AM Laboratory - Chemistry Order PSA BLOOD (SST-SERUM) [facility] Jul 10, 2024 12:00 AM Laboratory - Chemistry Order TSH BLOOD (SST-SERUM) [facility] Jul 10, 2024 12:00 AM Laboratory - Chemistry Order VITAMIN D (25-OH) BLOOD (SST-SERUM) [facility] Jul 10, 2024 12:00 AM Laboratory - Chemistry Order URINALYSIS URINE [facility] Jul 10, 2024 12:00 AM Laboratory - Chemistry Order MICROALBUMIN CREATININE RATIO PANEL URINE (RANDOM) [facility] Jul 10, 2024 12:00 AM Laboratory - Chemistry Order HEMOGLOBIN A1C PANEL BLOOD (LAV-BLOOD) [facility] Jul 10, 2024 12:00 AM Laboratory - Chemistry Order BASIC METABOLIC PANEL (fasting) BLOOD (SST-SERUM) [facility] Jul 10, 2024 12:00 AM Laboratory - Chemistry Order LIVER FUNCTION BLOOD (SST-SERUM) [facility] Jul 10, 2024 12:00 AM Laboratory - Chemistry Order LIPID PANEL FASTING BLOOD (SST-SERUM) [facility] Jul 10, 2024 12:00 AM Laboratory - Chemistry Order URIC ACID BLOOD (SST-SERUM) [facility] Jul 10, 2024 12:00 AM Laboratory - Chemistry Order CALCIUM BLOOD (SST-SERUM) [facility] Lab Results: +/- 30 days of the encounter This section includes the Chemistry and Hematology Lab Results on record with [place] for the patient. Radiology Reports and Pathology Reports are provided separately, in subsequent sections. Lab Results This section contains the Chemistry/Hematology Results that were resulted 30 days before or 30 daysafter the date of the Encounter. Date/Time Source Result Type Result - Unit Interpretation Reference Range Comment May 12, 2024 02:11 PM [facility] LIVER FUNCTION Specimen Type: SERUM No comment entered. Ordering Provider: LEANNE BASILIO Report Released Date/Time: May 12, 2024 02:07 PM Reporting Lab: [address] [address] Performing Lab: [address] [address] PROTEIN,TOTAL 7.9 g/dL 6.0-8.3 ALBUMIN 3.9 g/dL 3.5-5.0 ALKALINE PHOSPHATASE 66 U/L 40-150 AST 17 U/L 5-34 ALT 29 U/L BILIRUBIN, TOTAL 0.5 mg/dL 0.2-1.2 May 12, 2024 02:11 PM [facility] LIPID PANEL, NON FASTING Specimen Type: SERUM No comment entered. Ordering Provider: LEANNE BASILIO Report Released Date/Time: May 12, 2024 02:07 PM Reporting Lab: [address] [address] Performing Lab: [address] [address] CHOLESTEROL 267 mg/dL H TRIGLYCERIDE 270 mg/dL H 0-150 LDL calculated 177 mg/dL H 0-129 CHOL/HDL 7.4 HDL CHOLESTEROL 36 mg/dL L 40-60 May 12, 2024 02:11 PM [facility] TSH Specimen Type: SERUM No comment entered. Ordering Provider: LEANNE BASILIO Report Released Date/Time: May 12, 2024 02:07 PM Reporting Lab: [address] [address] Performing Lab: [address] [address] TSH 1.37 u[IU]/mL 0.35-5.00 May 12, 2024 02:11 PM [facility] HEMOGLOBIN A1C PANEL Specimen Type: BLOOD Comment: Values obtained from A1C measurements can vary. For atypical A1C assays, a reported value of 7.0 could actually be between 6.72 and 7.28 if measured by a reference method. A reported value of 9.0 could actually be between 8.73 and 9.27. Ref: http://www.ngs p.org/CAPdata. asp Ordering Provider: LEANNE BASILIO Report Released Date/Time: May 12, 2024 02:07 PM Reporting Lab: [facility] [address] [address] Performing Lab: [facility] [address] [address] HEMOGLOBIN A1C 11.8 H 4.0-5.6 May 12, 2024 02:11 PM [facility] PSA Specimen Type: SERUM No comment entered. Ordering Provider: LEANNE BASILIO Report Released Date/Time: May 12, 2024 02:07 PM Reporting Lab: [address] [address] Performing Lab: [address] [address] PSA 0.57 ng/mL 0.00-4.00 May 12, 2024 02:11 PM [facility] PT & INR (COUMADIN) Specimen Type: PLASMA No comment entered. Ordering Provider: LEANNE BASILIO Report Released Date/Time: May 12, 2024 02:07 PM Reporting Lab: [facility] [address] [address] Performing Lab: [address] [address] INR 1.0 PROTIME 11.6 s 10.0-13.1 May 12, 2024 02:11 PM [facility] CBC AND DIFF (AUTO) Specimen Type: BLOOD No comment entered. Ordering Provider: LEANNE BASILIO Report Released Date/Time: May 12, 2024 02:07 PM Reporting Lab: [facility] [address] [address] Performing Lab: [place] [id number] WBC 6.86 10*3/uL 4.50-11.00 RBC 5.28 10*6/uL 4.23-5.66 HGB 15.8 g/dL 12.8-17 HCT 45.8 39.2-50.4 MCV 86.7 fL 82-99 MCHC 34.5 g/dL 30.8-35.1 PLT 270 10*3/uL 140-360 RDW-CV 12.0 12.0-16.0 MONO, ABS 0.74 10*3/uL 0.30-1.10 MCH 29.9 pg 26.2-32.6 NEUT % 69.8 43.7-75.8 LYMPH % 14.9 14.0-42.3 MONO % 10.8 5.1-13.7 EOS % 3.4 0.4-6.8 BASO % 0.7 0.1-2.0 NEUT, ABS 4.79 10*3/uL 2.20-7.60 LYMPH, ABS 1.02 10*3/uL 1.00-3.20 EOS, ABS 0.23 10*3/uL 0.03-0.44 BASO, ABS 0.05 10*3/uL 0.01-0.13 IMMATURE GRAN % 0.4 0.0-0.7 IMMATURE GRAN, ABS 0.03 10*3/uL 0.00-0.06 NRBC % 0.0 0.0-0.0 NRBC, ABS 0.00 10*3/uL 0.00-0.00 May 12, 2024 02:11 PM [facility] BASIC METABOLIC PANEL (non-fasting) Spe cimen Type: SERUM No comment entered. Ordering Provider: LEANNE BASILIO Report Released Date/Time: May 12, 2024 02:07 PM Reporting Lab: [facility] [address] [facility] [address] Performing Lab: [address] [address] UREA NITROGEN 18 mg/dL 7-25 GLUCOSE 244 mg/dL H 65-100 SODIUM 134 mmol/L L 135-145 POTASSIUM 4.4 mmol/L 3.5-5.0 CHLORIDE 100 mmol/L 100-110 CO2 25 meq/L 20-30 CREATININE, Serum 0.96 mg/dL 0.50-1.40 eGFR(CKD-EPI 2020) >90 mL/min >60 Encounter Notes: All associated encounter notes This section contains the clinical notes associated to the Encounter. Date/Time Encounter Note(s) Provider Source Jun 08, 2024 05:33 PM PHARMACY NOTE: LOCAL TITLE: PHARMACY CUSTOMER CARE MEDICATION RENEWAL STANDARD TITLE: PHARMACY NOTE DATE OF NOTE: JUN 08, 2024@17:33 ENTRY DATE: JUN 08, 2024@17:33:32 AUTHOR: ALON GAMBLE COSIGNER: URGENCY: STATUS: COMPLETED Date: Jun Division: [place] Pt referred by Pharmacy Call Center for medication renewal: Non-controlled/maintenance medication Medications requested: [id number]$ APIXABAN 5MG TAB Defer to primary care provider To be mailed . Please review and renew if appropriate. *This note was generated by [facility] [facility] Customer Care. If you have any questions or need assistance, do not contact this author. Please refer all questions to your local, on-site pharmacy departments. /toro/ ALON GAMBLE CPhT Business Solutions Analyst, [place]/Pharmacy Customer Care Signed: 06/08/2024 17:34 Receipt Acknowledged By: 06/12/2024 12:14 /toro/ LEANNE BASILIO NP NURSE PRACTITIONER 06/09/2024 08:36 /toro/ FREDDY AVILES REGISTERED NURSE ALON GAMBLE [facility]
--- OUTSIDE RECORDS SUMMARY | 2024-06-26 04:05 | XMS_ITS | Encounter Summary ---
Author Organization [facility] Address [address] [place] [address] Care Team Providers Care Seismographer Name Role Phone Edelmira Sage MD Primary Care Provider Encounter Details Date Type Department Care Team ([facility] st Contact Info) Description 03/22/2021 Community Orders [facility] Epic[facility] Link [address] [place] [address] Pantera Campos MD [address] [place] [address] [place] [id number] Routine general medical examination at a health care facility (Primary Dx) Social History Tobacco Use Types Packs/Day Years [...] as of this encounter Visit Diagnoses Diagnosis Routine general medical examination at a health care facility- Primary documented in this encounter Care Teams Seismographer Relationship Specialty Start Date End Date Edelmira Sage MD PCP - General Family Medicine 08/23/21 documented as of this encounter
--- OUTSIDE RECORDS SUMMARY | 2024-06-26 04:05 | XMS_ITS | Encounter Summary ---
Author Name [facility] [facility] Address [address] [place] [address] Care Team Providers Care Engineering Design Supervisor Name Role Phone FAYE WYMAN Primary Care Provider Unavailabl e Selected Encounter This section includes the information on record at [place] for the Encounter. Date/Time Encounter Type Encounter Description Reason Pro vider Source I[facility] Encounter Template Text not used by [place]
--- OUTSIDE RECORDS SUMMARY | 2024-06-26 04:05 | XMS_ITS | Continuity of Care Document ---
Author Name [facility] Organization [facility] Care Team Providers Care Foreign Law Consultant Name Role Phone [facility] Unavailable Unavailable Problems Combined list of problems from Department of Defense and Veterans Affairs facilities. It does not include entries that were removed or entered in error. 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) [facility] [place] [facility] Long-term current use of anticoagulant Active Condition [facility] [place] [facility] Diagnosis: ICD-10-CM L60.3 Nail dystrophy [facility] Diagnosis: ICD-10-CM 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 Active Diagnosis [facility] (201GE) Diagnosis: ICD-10-CM E11.9 Type 2 diabetes mellitus without complications Active Diagnosis [place] Diagnosis: ICD-10-CM E11.8 Type 2 diabetes mellitus with unspecified complications Active Diagnosis [facility] (821GE) Diagnosis: ICD-10-CM F43.9 Reaction to severe stress, unspecified Active Diagnosis [place] Diagnosis: ICD-10-CM Z04.89 Encounter for examination and observation for oth reasons Active Diagnosis [facility] Diagnosis: ICD-10-CM R22.42 Localized swelling, mass and lump, left lower limb Active Diagnosis [place] Medications Combined list of outpatient medications from Department of Defense and Veterans Affairs facilities.Medications provided include 1) outpatient medications from the last 15 months, and 2) patient-reported medications. Medication Details Route Status Patient Instructions Prescription Expires Prescription Number Last Dispense Date Ordering Provider Order Date Order Qty Source APIXABAN 5MG TAB TAKE ONE TABLET BY MOUTH EVERY 12 HOURS FOR PREVENTI ON OF BLOOD CLOTS ORAL ACTIVE 09/07/2024 [id number] Danilo BASILIO A 2024 180 [place] APIXABAN 5MG TAB TAKE TWO TABLETS BY MOUTH EVERY 12 HOURS FOR 7 DAYS, THEN TAKE ONE TABLET EVERY 12 HOURS ORAL DISCONT INUED BY PROVIDE R 06/11/2024 [id number] 5 Danilo BASILIO A 2024 74 [place] GLIPIZIDE 10MG TAB TAKE ONE TABLET BY MOUTH TWICE DAILY FOR TYPE 2 DIABETES MELLITUS ORAL ACTIVE 08/20/2024 [id number] 5 JOANNA SIMENTAL 2024 180 [place] LISINOPRIL 5MG TAB TAKE ONE TABLET BY MOUTH ONCE DAILY TO CONTROL BLOOD PRESSURE ORAL ACTIVE 05/29/2025 [id number] 5 HARVEY WYMAN 2024 90 [place] METFORMIN HCL 500MG 24HR TAB,SA TAKE TWO TABLETS BY MOUTH TWICE DAILY FOR TYPE 2 DIABETES MELLITUS ORAL ACTIVE 08/20/2024 [id number] 5 JOANNA SIMENTAL 2024 360 [place] ROSUVASTATI N CA 40MG TAB TAKE ONE TABLET BY MOUTH ONCE DAILY FOR CHOLESTE ROL ORAL ACTIVE 05/23/2025 [id number] 5 JOANNA SIMENTAL 2024 90 [place] ROSUVASTATI N CA 40MG TAB TAKE ONE-HALF TABLET BY MOUTH ONCE DAILY FOR CHOLESTE ROL ORAL DISCONT INUED BY PROVIDE R 08/16/2024 [id number] 5 Danilo BASILIO A 2024 45 [place] SITAGLIPTIN (EQV-ZITUVI O) 100MG TAB TAKE ONE TABLET BY MOUTH ONCE DAILY ORAL ACTIVE 08/20/2024 [id number] 5 JOANNA SIMENTAL 2024 90 [place] Allergies, Adverse Reactions, Alerts Combined list of allergies from Department of Defense and Veterans Affairs facilities. It does not include entries that were removed or entered in error. Substance Category Reaction Severity Reaction type Status Date Reported Comments Source EMPAGLIFLOZIN Propensity to adverse reactions to drug (finding) Suicidal thoughts active 5 [place] [employer] [facility] [place] [facility] Immunizations Combined list of available immunizations from the Department of Defense and Veterans Affairs facilities. Immunization Series Date Given Administered By Site Reaction Lot Number CVX Code Drug Hospital Cleaning Specialist Status Comments Source PNEUMOCOCCAL CONJUGATE PCV15, POLYSACCHARID E LQH810 CONJUGATE, ADJUVANT, PF 2021 215 complet ed [place] [facility] [place] [facility] COVID-19 (IMELDA), VECTOR-NR, RS-AD26, PF, 0.5 ML 1 2021 212 complet ed [place] [facility] [place] [facility] TDAP 2014 115 complet ed [facility] [place] [facility] Results Combined list of recent chemistry, hematology and other laboratory results from Department of Defense and Veterans Affairs, ranging from 15 months to all on record, depending upon the facility. Order Name Results Value Reference Range Date Interpretation Specimen Comments Source LIVER FUNCTION PROTEIN [MASS/VOLUM E] IN SERUM OR PLASMA 7.9 g/dL 6.0 - 8.3 05/12 Specimen Type: SERUM No comment entered. Ordering Provider: JAYLENE BASILIO A Report Released Date/Time: May 12, 2024 02:07 PM Reporting Lab: [facility] [address] [address] Performing Lab: [facility] [address] [address] [place] LIVER FUNCTION ALBUMIN [MASS/VOLUM E] IN SERUM OR PLASMA 3.9 g/dL 3.5 - 5.0 05/12 Specimen Type: SERUM No comment entered. Ordering Provider: JAYLENE BASILIO A Report Released Date/Time: May 12, 2024 02:07 PM Reporting Lab: [facility] [address] [address] Performing Lab: [address] [address] [place] LIVER FUNCTION ALKALINE PHOSPHATASE [ENZYMATIC ACTIVITY/VO LUME] IN SERUM OR PLASMA 66 U/L 40 - 150 05/12 Specimen Type: SERUM No comment entered. Ordering Provider: JAYLENE BASILIO A Report Released Date/Time: May 12, 2024 02:07 PM Reporting Lab: [place] [facility] [address] [address] Performing Lab: [place] [facility] [address] [place] LIVER FUNCTION ASPARTATE AMINOTRANSF ERASE [ENZYMATIC ACTIVITY/VO LUME] IN SERUM OR PLASMA 17 U/L 5 - 34 05/12 Specimen Type: SERUM No comment entered. Ordering Provider: JAYLENE BASILIO A Report Released Date/Time: May 12, 2024 02:07 PM Reporting Lab: [place] [facility] [address] [address] Performing Lab: [place] [facility] [address] [address] [place] LIVER FUNCTION ALANINE AMINOTRANSF ERASE [ENZYMATIC ACTIVITY/VO LUME] IN SERUM OR PLASMA 29 U/L 05/12 Specimen Type: SERUM No comment entered. Ordering Provider: JAYLENE BASILIO A Report Released Date/Time: May 12, 2024 02:07 PM Reporting Lab: [place] [facility] [place] [address] [address] Performing Lab: [place] [facility] [place] [address] [address] [place] LIVER FUNCTION BILIRUBIN.T OTAL [MASS/VOLUM E] IN SERUM OR PLASMA 0.5 mg/dL 0.2 - 1.2 05/12 Specimen Type: SERUM No comment entered. Ordering Provider: JAYLENE BASILIO A Report Released Date/Time: May 12, 2024 02:07 PM Reporting Lab: [facility] [address] [address] Performing Lab: [facility] TR[facility] [address] [address] [place] LIPID PANEL, NON FASTING CHOLESTEROL [MASS/VOLUM E] IN SERUM OR PLASMA 267 mg/dL 05/12 H Specimen Type: SERUM No comment entered. Ordering Provider: JAYLENE BASILIO A Report Released Date/Time: May 12, 2024 02:07 PM Reporting Lab: [address] [address] Performing Lab: [address] [address] [place] LIPID PANEL, NON FASTING TRIGLYCERID E [MASS/VOLUM E] IN SERUM OR PLASMA 270 mg/dL 0 - 150 05/12 H Specimen Type: SERUM No comment entered. Ordering Provider: JAYLENE BASILIO A Report Released Date/Time: May 12, 2024 02:07 PM Reporting Lab: [address] [address] Performing Lab: [address] [address] [place] LIPID PANEL, NON FASTING CHOLESTEROL IN LDL [MASS/VOLUM E] IN SERUM OR PLASMA BY CALCULATION 177 mg/dL 0 - 129 05/12 H Specimen Type: SERUM No comment entered. Ordering Provider: JAYLENE BASILIO A Report Released Date/Time: May 12, 2024 02:07 PM Reporting Lab: [address] [address] Performing Lab: [address] [address] [place] LIPID PANEL, NON FASTING CHOLESTEROL .TOTAL/CHOL ESTEROL IN HDL [MASS RATIO] IN SERUM OR PLASMA 7.4 05/12 Specimen Type: SERUM No comment entered. Ordering Provider: JAYLENE BASILIO A Report Released Date/Time: May 12, 2024 02:07 PM Reporting Lab: [address] [address] Performing Lab: [address] [address] [place] LIPID PANEL, NON FASTING CHOLESTEROL IN HDL [MASS/VOLUM E] IN SERUM OR PLASMA 36 mg/dL 40 - 60 05/12 L Specimen Type: SERUM No comment entered. Ordering Provider: JAYLENE BASILIO A Report Released Date/Time: May 12, 2024 02:07 PM Reporting Lab: [address] [address] Performing Lab: [address] [address] [place] TSH THYROTROPIN [UNITS/VOLU ME] IN SERUM OR PLASMA 1.37 u[IU]/ mL 0.35 - 5.00 05/12 Specimen Type: SERUM No comment entered. Ordering Provider: JAYLENE BASILIO A Report Released Date/Time: May 12, 2024 02:07 PM Reporting Lab: [address] [address] Performing Lab: [address] [address] [place] HEMOGLOBI N A1C PANEL HEMOGLOBIN A1C/HEMOGLO BIN.TOTAL IN BLOOD BY HPLC 11.8 4.0 - 5.6 05/12 H Specimen Type: BLOOD Comment: Values obtained from A1C measurement s can vary. For atypical A1C assays, a reported value of 7.0 could actually be between 6.72 and 7.28 if measured by a reference method. A reported value of 9.0 could actually be between 8.73 and 9.27. Ref: http://www. ngsp.org/[place] Pdata.asp Ordering Provider: JAYLENE BASILIO A Report Released Date/Time: May 12, 2024 02:07 PM Reporting Lab: [address] [address] Performing Lab: [address] [address] [place] PSA PROSTATE SPECIFIC AG [MASS/VOLUM E] IN SERUM OR PLASMA 0.57 ng/mL 0.00 - 4.00 05/12 Specimen Type: SERUM No comment entered. Ordering Provider: JAYLENE BASILIO A Report Released Date/Time: May 12, 2024 02:07 PM Reporting Lab: [facility] [address] [address] Performing Lab: [facility] [address] [place] PT & INR (COUMADIN ) INR IN PLATELET POOR PLASMA BY COAGULATION ASSAY 1.0 05/12 Specimen Type: PLASMA No comment entered. Ordering Provider: JAYLENE BASILIO A Report Released Date/Time: May 12, 2024 02:07 PM Reporting Lab: [facility]TRN [address] [address] Performing Lab: [facility] [address] [address] [place] PT & INR (COUMADIN ) PROTHROMBIN TIME (PT) 11.6 s 10.0 - 13.1 05/12 Specimen Type: PLASMA No comment entered. Ordering Provider: JAYLENE BASILIO A Report Released Date/Time: May 12, 2024 02:07 PM Reporting Lab: [facility]ITAL[facility]SEL[facility]ERN [address] [address] Performing Lab: [facility]ITAL[facility] [address] [place] CBC AND DIFF (AUTO) LEUKOCYTES [#/VOLUME] IN BLOOD BY AUTOMATED COUNT 6.86 10*3/u L 4.50 - 11.00 05/12 Specimen Type: BLOOD No comment entered. Ordering Provider: JAYLENE BASILIO A Report Released Date/Time: May 12, 2024 02:07 PM Reporting Lab: [facility]ITAL[facility]ENTERTRN [facility] [address] Performing Lab: [facility] [address] [address] [place] CBC AND DIFF (AUTO) ERYTHROCYTE S [#/VOLUME] IN BLOOD BY AUTOMATED COUNT 5.28 10*6/u L 4.23 - 5.66 05/12 Specimen Type: BLOOD No comment entered. Ordering Provider: JAYLENE BASLIIO A Report Released Date/Time: May 12, 2024 02:07 PM Reporting Lab: [facility]ITAL[facility]SEL[facility]ERN [address] [address] Performing Lab: [facility] [address] [address] [place] CBC AND DIFF (AUTO) HEMOGLOBIN [MASS/VOLUM E] IN BLOOD 15.8 g/dL 12.8 - 17 05/12 Specimen Type: BLOOD No comment entered. Ordering Provider: JAYLENE BASILIO A Report Released Date/Time: May 12, 2024 02:07 PM Reporting Lab: [facility]ERN [address] [address] Performing Lab: [address] [address] [place] CBC AND DIFF (AUTO) HEMATOCRIT [VOLUME FRACTION] OF BLOOD BY AUTOMATED COUNT 45.8 39.2 - 50.4 05/12 Specimen Type: BLOOD No comment entered. Ordering Provider: JAYLENE BASILIO A Report Released Date/Time: May 12, 2024 02:07 PM Reporting Lab: [address] [address] Performing Lab: [address] [address] [place] CBC AND DIFF (AUTO) MCV [ENTITIC VOLUME] BY AUTOMATED COUNT 86.7 fL 82 - 99 05/12 Specimen Type: BLOOD No comment entered. Ordering Provider: JAYLENE BASILIO A Report Released Date/Time: May 12, 2024 02:07 PM Reporting Lab: [facility] [address] [address] Performing Lab: [facility] [address] [address] [place] CBC AND DIFF (AUTO) MCHC [MASS/VOLUM E] BY AUTOMATED COUNT 34.5 g/dL 30.8 - 35.1 05/12 Specimen Type: BLOOD No comment entered. Ordering Provider: JAYLENE BASILIO A Report Released Date/Time: May 12, 2024 02:07 PM Reporting Lab: [facility] [address] [address] Performing Lab: [facility] [address] [address] [place] CBC AND DIFF (AUTO) PLATELETS [#/VOLUME] IN BLOOD BY AUTOMATED COUNT 270 10*3/u L 140 - 360 05/12 Specimen Type: BLOOD No comment entered. Ordering Provider: JAYLENE BASILIO A Report Released Date/Time: May 12, 2024 02:07 PM Reporting Lab: [facility]ITAL[facility]SEL[facility]ERN [address] [address] Performing Lab: [facility] [address] [address] [place] CBC AND DIFF (AUTO) ERYTHROCYTE DISTRIBUTIO N WIDTH [RATIO] BY AUTOMATED COUNT 12.0 12.0 - 16.0 05/12 Specimen Type: BLOOD No comment entered. Ordering Provider: JAYLENE BASILIO A Report Released Date/Time: May 12, 2024 02:07 PM Reporting Lab: [facility]ITAL[facility]ERN [address] [address] Performing Lab: [facility] [address] [address] [place] CBC AND DIFF (AUTO) MONOCYTES [#/VOLUME] IN BLOOD BY AUTOMATED COUNT 0.74 10*3/u L 0.30 - 1.10 05/12 Specimen Type: BLOOD No comment entered. Ordering Provider: JAYLENE BASILIO A Report Released Date/Time: May 12, 2024 02:07 PM Reporting Lab: [facility]ITALRCHIL[facility]ENTERTRN [address] [address] Performing Lab: [facility] [address] [address] [place] CBC AND DIFF (AUTO) MCH [ENTITIC MASS] BY AUTOMATED COUNT 29.9 pg 26.2 - 32.6 05/12 Specimen Type: BLOOD No comment entered. Ordering Provider: JAYLENE BASILIO A Report Released Date/Time: May 12, 2024 02:07 PM Reporting Lab: [facility] [address] [address] Performing Lab: [place] [facility] [address] [address] [place] CBC AND DIFF (AUTO) NEUTROPHILS /100 LEUKOCYTES IN BLOOD BY AUTOMATED COUNT 69.8 43.7 - 75.8 05/12 Specimen Type: BLOOD No comment entered. Ordering Provider: JAYLENE BASILIO A Report Released Date/Time: May 12, 2024 02:07 PM Reporting Lab: [place] [facility] [place] [address] [address] Performing Lab: [place] [facility] [address] [place] CBC AND DIFF (AUTO) LYMPHOCYTES /100 LEUKOCYTES IN BLOOD BY AUTOMATED COUNT 14.9 14.0 - 42.3 05/12 Specimen Type: BLOOD No comment entered. Ordering Provider: JAYLENE BASILIO A Report Released Date/Time: May 12, 2024 02:07 PM Reporting Lab: [place] [facility] [address] [address] Performing Lab: [place] [facility] [address] [address] [place] CBC AND DIFF (AUTO) MONOCYTES/1 00 LEUKOCYTES IN BLOOD BY AUTOMATED COUNT 10.8 5.1 - 13.7 05/12 Specimen Type: BLOOD No comment entered. Ordering Provider: JAYLENE BASILIO A Report Released Date/Time: May 12, 2024 02:07 PM Reporting Lab: [place] [facility] [address] [address] Performing Lab: [place] [facility] [address] [place] CBC AND DIFF (AUTO) EOSINOPHILS /100 LEUKOCYTES IN BLOOD BY AUTOMATED COUNT 3.4 0.4 - 6.8 05/12 Specimen Type: BLOOD No comment entered. Ordering Provider: JAYLENE BASILIO A Report Released Date/Time: May 12, 2024 02:07 PM Reporting Lab: [facility] [address] Performing Lab: [place] [facility] [facility] [facility] [address] [address] [place] CBC AND DIFF (AUTO) BASOPHILS/1 00 LEUKOCYTES IN BLOOD BY AUTOMATED COUNT 0.7 0.1 - 2.0 05/12 Specimen Type: BLOOD No comment entered. Ordering Provider: JAYLENE BASILIO A Report Released Date/Time: May 12, 2024 02:07 PM Reporting Lab: [facility] [address] [address] Performing Lab: [facility]N [facility] [address] [place] CBC AND DIFF (AUTO) NEUTROPHILS [#/VOLUME] IN BLOOD BY AUTOMATED COUNT 4.79 10*3/u L 2.20 - 7.60 05/12 Specimen Type: BLOOD No comment entered. Ordering Provider: JAYLENE BASILIO A Report Released Date/Time: May 12, 2024 02:07 PM Reporting Lab: [place] [facility] [facility] [address] [address] Performing Lab: [facility] [address] [address] [place] CBC AND DIFF (AUTO) LYMPHOCYTES [#/VOLUME] IN BLOOD BY AUTOMATED COUNT 1.02 10*3/u L 1.00 - 3.20 05/12 Specimen Type: BLOOD No comment entered. Ordering Provider: JAYLENE BASILIO A Report Released Date/Time: May 12, 2024 02:07 PM Reporting Lab: [place] [facility] [address] [address] Performing Lab: [facility] [address] [place] CBC AND DIFF (AUTO) EOSINOPHILS [#/VOLUME] IN BLOOD BY AUTOMATED COUNT 0.23 10*3/u L 0.03 - 0.44 05/12 Specimen Type: BLOOD No comment entered. Ordering Provider: JAYLENE BASILIO A Report Released Date/Time: May 12, 2024 02:07 PM Reporting Lab: [facility]ITALRHARTSEL[facility]ERN [facility] [address] [address] Performing Lab: [facility]ITALRL TRN [facility] [address] [address] [place] CBC AND DIFF (AUTO) BASOPHILS [#/VOLUME] IN BLOOD BY AUTOMATED COUNT 0.05 10*3/u L 0.01 - 0.13 05/12 Specimen Type: BLOOD No comment entered. Ordering Provider: JAYLENE BASILIO A Report Released Date/Time: May 12, 2024 02:07 PM Reporting Lab: [facility] W[facility]N [facility] [address] [address] Performing Lab: [facility]ITALRHARTSELLE [facility]ENTERN [address] [address] [place] CBC AND DIFF (AUTO) IMMATURE GRANULOCYTE S/100 LEUKOCYTES IN BLOOD BY AUTOMATED COUNT 0.4 0.0 - 0.7 05/12 Specimen Type: BLOOD No comment entered. Ordering Provider: JAYLENE BASILIO A Report Released Date/Time: May 12, 2024 02:07 PM Reporting Lab: [facility]ITAL[facility]ERN [address] [address] Performing Lab: [facility]ITALRCHILTON [facility]ENTERTRN [facility] [address] [place] CBC AND DIFF (AUTO) IMMATURE GRANULOCYTE S [#/VOLUME] IN BLOOD 0.03 10*3/u L 0.00 - 0.06 05/12 Specimen Type: BLOOD No comment entered. Ordering Provider: JAYLENE BASILIO A Report Released Date/Time: May 12, 2024 02:07 PM Reporting Lab: [facility]ITALRCHILTON [facility]ENTERTRN [address] [address] Performing Lab: [facility]ITAL[facility]SEL[facility]ERN [address] [address] [place] CBC AND DIFF (AUTO) NRBC % 0.0 0.0 - 0.0 05/12 Specimen Type: BLOOD No comment entered. Ordering Provider: JAYLENE BASILIO A Report Released Date/Time: May 12, 2024 02:07 PM Reporting Lab: [facility] [address] [address] Performing Lab: [address] [address] [place] CBC AND DIFF (AUTO) NRBC, ABS 0.00 10*3/u L 0.00 - 0.00 05/12 Specimen Type: BLOOD No comment entered. Ordering Provider: JAYLENE BASILIO A Report Released Date/Time: May 12, 2024 02:07 PM Reporting Lab: [address] [address] Performing Lab: [address] [address] [place] BASIC METABOLIC PANEL (non-fast ing) UREA NITROGEN [MASS/VOLUM E] IN SERUM OR PLASMA 18 mg/dL 7 - 25 05/12 Specimen Type: SERUM No comment entered. Ordering Provider: JAYLENE BASILIO A Report Released Date/Time: May 12, 2024 02:07 PM Reporting Lab: [address] [address] Performing Lab: [address] [address] [place] BASIC METABOLIC PANEL (non-fast ing) GLUCOSE [MASS/VOLUM E] IN SERUM OR PLASMA 244 mg/dL 65 - 100 05/12 H Specimen Type: SERUM No comment entered. Ordering Provider: JAYLENE BASILIO A Report Released Date/Time: May 12, 2024 02:07 PM Reporting Lab: [address] [address] Performing Lab: [address] [address] [place] BASIC METABOLIC PANEL (non-fast ing) SODIUM [MOLES/VOLU ME] IN SERUM OR PLASMA 134 mmol/L 135 - 145 05/12 L Specimen Type: SERUM No comment entered. Ordering Provider: JAYLENE BASILIO A Report Released Date/Time: May 12, 2024 02:07 PM Reporting Lab: [place] [facility] [address] Performing Lab: [facility] [address] [address] [place] BASIC METABOLIC PANEL (non-fast ing) POTASSIUM [MOLES/VOLU ME] IN SERUM OR PLASMA 4.4 mmol/L 3.5 - 5.0 05/12 Specimen Type: SERUM No comment entered. Ordering Provider: JAYLENE BASILIO A Report Released Date/Time: May 12, 2024 02:07 PM Reporting Lab: [facility] [address] [address] Performing Lab: [address] [address] [place] BASIC METABOLIC PANEL (non-fast ing) CHLORIDE [MOLES/VOLU ME] IN SERUM OR PLASMA 100 mmol/L 100 - 110 05/12 Specimen Type: SERUM No comment entered. Ordering Provider: JAYLENE BASILIO A Report Released Date/Time: May 12, 2024 02:07 PM Reporting Lab: [address] [address] Performing Lab: [facility] [address] [address] [place] BASIC METABOLIC PANEL (non-fast ing) CARBON DIOXIDE, TOTAL [MOLES/VOLU ME] IN SERUM OR PLASMA 25 meq/L 20 - 30 05/12 Specimen Type: SERUM No comment entered. Ordering Provider: JAYLENE BASILIO A Report Released Date/Time: May 12, 2024 02:07 PM Reporting Lab: [facility] [address] [address] Performing Lab: [address] [address] [place] BASIC METABOLIC PANEL (non-fast ing) CREATININE [MASS/VOLUM E] IN SERUM OR PLASMA 0.96 mg/dL 0.50 - 1.40 05/12 Specimen Type: SERUM No comment entered. Ordering Provider: JAYLENE BASILIO A Report Released Date/Time: May 12, 2024 02:07 PM Reporting Lab: [facility] [address] [address] Performing Lab: [address] [address] [place] BASIC METABOLIC PANEL (non-fast ing) GLOMERULAR FILTRATION RATE/1.73 SQ M.PREDICTED [VOLUME RATE/AREA] IN SERUM, PLASMA OR BLOOD BY CREATININE- BASED FORMULA (CKD-EPI 2020) >90mL/ min 60 05/12 Specimen Type: SERUM No comment entered. Ordering Provider: JAYLENE BASILIO Report Released Date/Time: May 12, 2024 02:07 PM Reporting Lab: [address] [address] Performing Lab: [address] [address] [facility] Vital Signs Combined list of inpatient and outpatient Vital Signs from [employer] and [employer], ranging from 12 months to all on record, depending upon the facility. Vital Sign Value Date Comments Source SYSTOLIC BLOOD PRESSURE 153 05/28/2024 13:07:02 [facility] DIASTOLIC BLOOD PRESSURE 93 05/28/2024 13:07:02 [facility] PULSE OXIMETRY 97 05/28/2024 13:07:02 [facility] WEIGHT 297 05/28/2024 13:07:02 [facility] BMI 39 kg/m2 05/28/2024 13:07:02 [facility] TEMPERATURE 97 05/28/2024 [facility]07[facility] 05/28/2024 13:07:02 [facility] RESPIRATION 18 05/28/2024 13:07:02 [facility] SYSTOLIC BLOOD PRESSURE 129 05/12/2024 13:39:00 [place] DIASTOLIC BLOOD PRESSURE 83 05/12/2024 13:39:00 [place] PULSE OXIMETRY 97 05/12/2024 13:39:00 [place] WEIGHT 295 05/12/2024 13:39:00 [place] BMI 39 kg/m2 05/12/2024 13:39:00 [place] PAIN 0 05/12/2024 13:39[facility]00 [facility] 05/12/2024 13:39:00 [place] TEMPERATURE 98.3 05/12/2024 13:39:00 [place] PULSE 94 05/12/2024 13:39:00 [place] RESPIRATION 18 05/12/2024 13:39:00 [place] Encounters Combined list of: 1) Encounters from Department of Veterans Affairs facilities going backup to the last 18 months, not all VA inpatient encounters are included; 2) Encounters from the Department of [facility] facilities going backup to 280 months. Location Location Details Encounter Type Encounter Number Reason For Visit Attending Provider ADM Date DC Date Status Disposition Source [facility] [facility] Outpatient Encounter [id number] 1.03/10 [place] [facility] [place] [facility] [place] [facility] Outpatient Encounter [id number] [place] [facility] [place] [facility] [place] OFF/OP EST SEPTEMBER X REQ PHY/QHP [id number] Diagnos is: ICD-10- CM R22.42 Localiz ed swellin g, mass and lump, left lower limb ALEAH,ER IC [place] [facility] Outpatient Encounter [id number] 05/12 [place] [facility] [place] [facility] [place] Outpatient Encounter [id number] 1BY. [id number] 05/12 [facility] [place] [facility] Outpatient Encounter [id number] 05/12 [place] [facility] NQHP OL DIG ASSMT&MGMT 5-10 [id number] Diagnos is: ICD-10- CM Z04.89 Encount er for examina tion and observa tion for oth reasons SASKIA DELGADO 05/13 [facility] [place] [facility] Outpatient Encounter [id number] 05/13 [place] [facility] [facility] [place] [facility] [facility] Outpatient Encounter [id number] 05/14 [place] [facility] [place] [facility] [facility] MTMS BY PHARM ADDL 15 MIN [id number] Diagnos is: ICD-10- CM E11.9 Type 2 diabete s mellitu s without complic ations BEATRIZ SIMENTAL IE 05/22 [facility] PSYTX W PT 30 MINUTES [id number] Diagnos is: ICD-10- CM F43.9 Reactio n to severe stress, unspeci fied KIRK,T YLER 05/22 [facility] (631GE) NQHP OL DIG ASSMT&MGMT 5-10 [id number] Diagnos is: ICD-10- CM E11.8 Type 2 diabete s mellitu s with unspeci fied complic ations VALDEMAR BOWMAN N 05/22 [facility] (631GE) [facility] Outpatient Encounter [id number] 05/27 [facility] [place] [facility] Outpatient Encounter [id number] 05/28 [facility] MOD 30 MIN [id number] Diagnos is: ICD-10- CM E11.9 Type 2 diabete s mellitu s without complic ations YVONNE WYMAN 05/28 [facility] [place] [facility] [place] [facility] Outpatient Encounter [id number] 05/29 [place] [facility] [facility] [place] [facility] [place] [facility] Outpatient Encounter [id number] 06/08 [place] [facility] (631GE) MTMS BY PHARM EST 15 MIN [id number] Diagnos is: ICD-10- CM 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 Procedure Procedure Type Code Date Perfomer Comments Chrisc e OTHER REPAIR OF KNEE 10/12/1995 [facility] ARTHROSCOPY OF KNEE 10/12/1995 D oD Social History Combined list of available smoking, tobacco, and other social history from Department of Defense and Veterans Affairs facilities. Social History Type Response Date Comment Jules brown Tobacco smoking status NHIS OK-TOBACCO NEVER USED CIGARETTES 05/28/2024 [place] History of tobacco use OK-TOBACCO NEVER USED OTHER TYPE 05/28/2024 [place] This section is an empty social history section. [facility] Plan of Care List of future care activities from Department of Veterans Affairs facilities. Additional future care activities may be listed in the Assessment and Plan section. Date/Time Care Activity Care Activity Detail Facili ty 06/30/2024 AMBULATORY - MEDICINE AMBULATORY - MEDICI NE [place] 07/15/2024 AMBULATORY - NONE AM[place]ULATORY - NONE [place] [facility] 07/16/2024 AMBULATORY - PSYCHIATRY AMBULATORY - PSYC HIATRY [facility] 08/24/2024 AMBULATORY - MEDICINE AMBULATORY - MEDICI NE [place] 10/16/2024 AMBULATORY - MEDICINE AMBULATORY - MEDICI NE [place] 05/22/2024 Consult Order TELE-EYE SCREENI NG CONSULT/SP[facility] (OUTPT) Cons Remote Control Mirror Installer's Choice [facility] 05/22/2024 Consult Order MENTAL HEALTH [facility] OUTPT Cons Remote Control Mirror Installer's Choice [place] [facility] [place] [facility] 05/28/2024 Laboratory - Television Script Writer ry Order MICROALBUMIN CREATININE RATIO PANEL URINE (RANDOM) [facility] 07/10/2024 Laboratory - Television Script Writer ry Order CBC AND DIFF (AUTO) BLOOD (LAV-BLOOD) [facility] 07/10/2024 Laboratory - Television Script Writer ry Order PSA BLOOD (SST-SERUM) [facility] 07/10/2024 Laboratory - Television Script Writer ry Order TSH BLOOD (SST-SERUM) [facility] 07/10/2024 Laboratory - Television Script Writer ry Order VITAMIN D (25-OH) BLOOD (SST-SERUM) [facility] 07/10/2024 Laboratory - Television Script Writer ry Order URINALYSIS URINE [facility] 07/10/2024 Laboratory - Television Script Writer ry Order MICROALBUMIN CREATININE RATIO PANEL URINE (RANDOM) [facility] 07/10/2024 Laboratory - Television Script Writer ry Order HEMOGLOBIN A1C PANEL BLOOD (LAV-BLOOD) [facility] 07/10/2024 Laboratory - Television Script Writer ry Order BASIC METABOLIC PANEL (fasting) BLOOD (SST-SERUM) [facility] 07/10/2024 Laboratory - Television Script Writer ry Order LIVER FUNCTION BLOOD (SST-SERUM) [facility] 07/10/2024 Laboratory - Television Script Writer ry Order LIPID PANEL FASTING BLOOD (SST-SERUM) [facility] 07/10/2024 Laboratory - Television Script Writer ry Order URIC ACID BLOOD (SST-SERUM) [facility] 07/10/2024 Laboratory - Television Script Writer ry Order CALCIUM BLOOD (SST-SERUM) [facility]
--- OUTSIDE RECORDS SUMMARY | 2024-06-26 04:05 | XMS_ITS | Referral Summary ---
Author Organization [facility] Address [address] [place] [address] Care Team Providers Care Pottery Kiln Builder Name Role Phone Edelmira Sage MD Primary Care Provider [phone] Encounters Date Type Department Care Team Description 04/24/2024 Hospital Encounter [facility] [address] [place] [address] José Manuel Dillon MD 04/24/2024 Orders Only [facility] Colorectal Surgery [address] [place] [address] Nurse Practitioner Home Assessments: José Manuel Cason MD Encounter for screening colonoscopy (Primary Dx) from Last 3 Months Allergies Active Allergy Reactions Criticality Noted Date [...] mg daily Active flash glucose scanning reader (FreeStyle Venus 14 Day [place]) [facility] Use as directed. 1 each 0 Active [...] hyperglycemia, without long-term current use of insulin ([facility] Use as directed. 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 Procedure Name Priority Date/Time Associated Diagnosis Comments BASIC METABOLIC PANEL STAT 01/29/2023 3:29 PM EDT POCT GLYCOSYLATED HEMOGLOBIN (HGB A1C) Routine 04/17/2022 8:04 AM EST Type 2 diabetes mellitus with hyperglycemia, without long-term current use of insulin ([facility]/HCC) (HCC) COLONOSCOPY 08/18/2021 MICROALBUMIN, RANDOM URINE WITH CREATININE Routine 07/12/2020 9:14 AM EST Type 2 diabetes mellitus without complication, without long-term current use of insulin (CMS/HCC) (HCC) Albuminuria Mixed dyslipidemia Class 3 severe obesity due to excess calories with serious comorbidity and body mass index (BMI) of 40.0 to 44.9 in adult (CMS/HCC) (HCC) HEPATITIS C ANTIBODY, CONVERSION Routine 09/26/2011 8:38 AM EDT from Last 3 Months or Most Recently Relevant to Health Maintenance Results * Due to [place] state law, this organization might not be sharing negative HIV tests. * (ABNORMAL) Basic Metabolic Panel (01/29/2023 3:29 PM EDT) NA 135(L) 136 - 145 mmol/L 01/29/2023 4:32 PM EDT [facility] K 4.0 3.5 - 5.3 mmol/L 01/29/2023 4:32 PM EDT [facility] Cl 105 98 - 107 mmol/L 01/29/2023 4:32 PM EDT [facility] CO2 23 22 - 30 mmol/L 01/29/2023 4:32 PM EDT [facility] BUN 17 7 - 18 mg/dL 01/29/2023 4:32 PM EDT [facility] Creatinine 1.10 0.60 - 1.30 mg/dL 01/29/2023 4:32 PM EDT [facility] Glucose 118(H) 70 - 99 mg/dL 01/29/2023 4:32 PM EDT [facility] Calcium 9.1 8.5 - 10.1 mg/dL 01/29/2023 4:32 PM EDT [facility] Anion Gap 7 5 - 15 01/29/2023 4:32 PM EDT [facility] eGFR 82 >=60 mL/min/1 .73m2 01/29/2023 4:32 PM EDT [facility] Comment:The estimated glomer ular filtration rate (eGFR) is calculated using a new formula developed by the NKF-ASN task force to eliminate race-based correction factors. The new formula uses serum/plasma creatinine, age, and gender to determine eGFR. A value below 60mls/min might indicate kidney disease and will be flagged. For additional information, see Hannah et al, Am J Kidney Dis. 2021;79(2):268- 288, A Unifying Approach for GFR estimation: Recommendations of the NKF-ASN Task Force on Reassessing the Inclusion of Race in Diagnosing Kidney Disease . Blood Structure of peripheral vein / Unknown Venipuncture / Unknown 01/29/2023 3:29 PM EDT 01/29/2023 3:37 PM EDT us Abhishek Guzman MD LAB BLOOD ORDERABLES Final Result [facility] [address] [place] [id number], * (ABNORMAL) POCT Glycosylated Hemoglobin (HGB A1C), interfaced (04/17/2022 8:04 AM EST) Hemoglobin A1C, POCT 10.9(H) <=5.6 % 04/17/2022 8:18 AM EST [facility] Comment: A1C Recommendation for Non- Adults with Diabetes: <7.0% ADA 2011 Standards of Medical Care in Diabetes Blood 04/17/2022 8:04 AM EST 04/17/2022 8:18 AM EST us Lizbet Christian MD LAB POCT ORDERABLES - DEVIC E Final Result [facility] [address] [place] [address], * COLONOSCOPY (08/18/2021) Narrative Procedure Note Dutch Andujar MD - 08/18/2021 12:17 PM EDT Gastroenterology Patient Name: Suresh Thompson Procedure Date: 08/18/2021 12:17 PM Date of : 1975 Admit Type: Outpatient Age: 46 Room: [place] [address] Gender: Male Note Status: Finalized Attending MD: [...] verified by the physician,the nurse and the chief technician x ray in the endoscopy suite. Mental Status Examination: [...] - 3.0 mg/dL 07/12/2020 10:18 AM EST [facility] Creatinine, Urine 147 30 - 150 mg/dL 07/12/2020 10:18 AM EST [facility] Microalb/Crea t Ratio, Random Urine 95.2(H) <30.0 mcg/mgCr 07/12/2020 10:18 AM EST [facility] Urine Voided urine specimen / Unknown Non-Blood Collection / Unknown 07/12/2020 9:14 AM EST 07/12/2020 9:20 AM EST us Lizbet Christian MD LAB URINE ORDERABLES Final Result [facility] [address] [place] [id number], * HEPATITIS C ANTIBODY, CONVERSION (09/26/2011 8:38 AM EDT) Pathologist [facility] Hepatitis C Antibody 0.18 <1.00 IV [facility] Comment: Negative Not infected with HCV, unless recent infection is suspected or other evidence exists to indicate HCV infection. 09/26/2011 8:38 AM EDT 09/26/2011 10:39 PM EDT us Alexandr Hammond LAB HISTORICAL RESULTS Final Res ult [facility] [address] [place] [id number], from Last 3 Months or Most Recently Relevant to Health Maintenance Care Teams Pottery Kiln Builder Relationship Specialty Start Date End Date Edelmira Sage MD PCP - General Family Medicine 08/23/21
--- OUTSIDE RECORDS SUMMARY | 2024-06-26 04:05 | XMS_ITS | Encounter Summary ---
Author Organization [facility] Address [address] [place] [address] Care Team Providers Care Logistics Service Representative Name Role Phone Edelmira Sage MD Primary Care Provider Encounter Details Date Type Department Care Team (Late st Contact Info) Description 03/03/2021 Socialize Message CC [address] [phone] [place]ell Nam, [place] [address] [place] [phone] Leg swollen Social History Tobacco Use Types Packs/Day Years [...] on filedocumented in this encounter Care Teams Logistics Service Representative Relationship Specialty Start Date End Date Edelmira Sage MD PCP - General Family Medicine 08/23/21 documented as of this encounter
--- OUTSIDE RECORDS SUMMARY | 2024-06-26 04:05 | XMS_ITS | Clinical Summary ---
Author Organization [facility] it Address [address] [place] [address] Care Team Providers Care Barrel Cooper Name Role Phone Unavailable Primary Care Provider Unavailabl e Social History Tobacco Use Types Packs/Day Years Used Date Smoking Tobacco: Never Assessed Sex and Gender Information Value Date Recorded Sex Assigned at Not on file Legal Sex Male 8:16 PM EST Gender Identity Not on file Sexual Orientation Not on file Plan of Treatment Health Maintenance Due Date Last Done Comments DTaP,Tdap,and Td Vaccines (1 - Tdap) 1992 Hepatitis B Vaccines (1 of 3 - 19+ 3-dose series) 1992 Cholesterol Screening (Lipid Panel) 05/30/2023 Colorectal Cancer Screening: Colonoscopy 05/30/2023 Depression Screening 05/30/2023 HIV Screening 05/30/2023 Hepatitis C Screening 05/30/2023 Social Influencers of Health Screening 05/30/2023 Pneumococcal Vaccine: 50+ Ye ars (1 of 1 - PCV) 2023 Zoster Vaccines (1 of 2) 2023 COVID-19 Vaccine (1 - 2023-2 5 season) 2024 Influenza Vaccine (#1) 2024 HIB Vaccines Aged Out No longer eligi ble based on patient's age to complete this topic HPV Vaccines Aged Out No longer eligi ble based on patient's age to complete this topic Hepatitis A Vaccines Aged Out No long er eligible based on patient's age to complete this topic IPV Vaccines Aged Out No longer eligi ble based on patient's age to complete this topic MMR Vaccines Aged Out No longer eligi ble based on patient's age to complete this topic Meningococcal ACWY Vaccine Aged Out N o longer eligible based on patient's age to complete this topic Meningococcal B Vacine Aged Out No lo nger eligible based on patient's age to complete this topic Pneumococcal Vaccine: Pediat rics (0 to 5 Years) and At-Risk Patients (6 to 64 Years) Aged Out No longer eligible b ased on patient's age to complete this topic RSV Immunization Patients Un qamar 20 months Aged Out No longer eligible b ased on patient's age to complete this topic Varicella Vaccines Aged Out No longer eligible based on patient's age to complete this topic
--- OUTSIDE RECORDS SUMMARY | 2024-06-26 04:05 | XMS_ITS | Encounter Summary ---
Author Name [facility] Address [address] [place] [address] Care Team Providers Care Supervisor Concrete Stone Finishing Name Role Phone FAYE WYMAN Primary Care Provider Unavailabl e Selected Encounter This section includes the information on record at [facility] for the Encounter. Date/Time Encounter Type Encounter Description Reason Pro vider Source IHE Encounter Template Text not used by VA
--- OUTSIDE RECORDS SUMMARY | 2024-06-26 04:05 | XMS_ITS | Encounter Summary ---
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
--- OUTSIDE RECORDS SUMMARY | 2024-06-26 04:06 | XMS_ITS | Encounter Summary ---
Author Name [facility] [facility] Address [address] [place] [address] Care Team Providers Care Chemical Laboratory Scientist Name Role Phone FAYE WYMAN Primary Care Provider Unavailabl e Selected Encounter This section includes the information on record at [place] for the Encounter. Date/Time Encounter Type Encounter Description Reason Pro vider Source May 27, 2024 01:00 PM Outpatient Encounter [facility] Encounter Template Text not used by [place] [...] Date/Time Appointment Type Appointme nt Facility Name May 28, 2024 01:00 PM [facility] Jun 17, 2024 03:30 PM [facility] Jun 30, 2024 03:00 PM [facility] - [facility]ICINE [facility] Jul 15, 2024 03:30 PM AMBUL[place]ORY - NONE [place] [facility] Jul 16, 2024 08:30 AM AMBULATORY - PSYCHIATRY [facility] Aug 24, 2024 03:30 PM [facility] Oct 16, 2024 03:30 PM [facility] Active, Pending, and Scheduled Orders This section [...] Consult Order TELE-EYE SCREENING CONSULT/SPOPC (OUTPT) [facility] [place] May 22, 2024 12:08 PM Consult Order [facility] OUTPT [facility] [place] [facility] [facility] May 28, 2024 12:00 AM Laboratory - Chemistry Order MICROALBUMIN CREATININE RATIO PANEL URINE (RANDOM) [facility] Jul 10, 2024 12:00 AM Laboratory - Chemistry Order CBC AND DIFF (AUTO) BLOOD (LAV-BLOOD) [facility] Jul 10, 2024 12:00 AM Laboratory - Chemistry Order PSA BLOOD (SST-SERUM) [facility] Jul 10, 2024 12:00 AM Laboratory - Chemistry Order TSH BLOOD (SST-SERUM) [facility] Jul 10, 2024 12:00 AM Laboratory - Chemistry Order VITAMIN D (25-OH) BLOOD (SST-SERUM) [facility] Jul 10, 2024 12:00 AM Laboratory - Chemistry Order URINALYSIS URINE [facility] Jul 10, 2024 12:00 AM Laboratory - Chemistry Order MICROALBUMIN CREATININE RATIO PANEL URINE (RANDOM) [facility] Jul 10, 2024 12:00 AM Laboratory - Chemistry Order HEMOGLOBIN A1C PANEL BLOOD (LAV-BLOOD) [facility] Jul 10, 2024 12:00 AM Laboratory - Chemistry Order BASIC METABOLIC PANEL (fasting) BLOOD (SST-SERUM) [facility] Jul 10, 2024 12:00 AM Laboratory - Chemistry Order LIVER FUNCTION BLOOD (SST-SERUM) [facility] Jul 10, 2024 12:00 AM Laboratory - Chemistry Order LIPID PANEL FASTING BLOOD (SST-SERUM) [facility] Jul 10, 2024 12:00 AM Laboratory - Chemistry Order URIC ACID BLOOD (SST-SERUM) [facility] Jul 10, 2024 12:00 AM Laboratory - Chemistry Order CALCIUM BLOOD (SST-SERUM) [facility] Lab Results: +/- 30 days of the [...] Range Comment May 12, 2024 02:11 PM [place] LIVER FUNCTION Specimen Type: SERUM No comment entered. Ordering Provider: LEANNE BASILIO Report Released Date/Time: May 12, 2024 02:07 PM Reporting Lab: [address] [address] Performing Lab: [address] [address] PROTEIN,TOTAL 7.9 g/dL 6.0-8.3 ALBUMIN 3.9 g/dL 3.5-5.0 ALKALINE PHOSPHATASE 66 U/L 40-150 AST 17 U/L 5-34 ALT 29 U/L BILIRUBIN, TOTAL 0.5 mg/dL 0.2-1.2 May 12, 2024 02:11 PM [place] LIPID PANEL, NON FASTING Specimen Type: SERUM No comment entered. Ordering Provider: LEANNE BASILIO Report Released Date/Time: May 12, 2024 02:07 PM Reporting Lab: [address] [address] Performing Lab: [address] [address] CHOLESTEROL 267 mg/dL H TRIGLYCERIDE 270 mg/dL H 0-150 LDL calculated 177 mg/dL H 0-129 CHOL/HDL 7.4 HDL CHOLESTEROL 36 mg/dL L 40-60 May 12, 2024 02:11 PM [place] TSH Specimen Type: SERUM No comment entered. Ordering Provider: LEANNE BASILIO Report Released Date/Time: May 12, 2024 02:07 PM Reporting Lab: [address] [address] Performing Lab: [address] [address] TSH 1.37 u[IU]/mL 0.35-5.00 May 12, 2024 02:11 PM [place] HEMOGLOBIN A1C PANEL Specimen Type: BLOOD Comment: [...] May 12, 2024 02:07 PM Reporting Lab: [facility] [address] [address] Performing Lab: [facility] [place] [id number] HEMOGLOBIN A1C 11.8 H 4.0-5.6 May 12, 2024 02:11 PM [place] PSA Specimen Type: SERUM No comment entered. Ordering Provider: LEANNE BASILIO Report Released Date/Time: May 12, 2024 02:07 PM Reporting Lab: [facility] [address] [address] Performing Lab: [address] [address] PSA 0.57 ng/mL 0.00-4.00 May 12, 2024 02:11 PM [place] PT & INR (COUMADIN) Specimen Type: PLASMA No comment entered. Ordering Provider: LEANNE BASILIO Report Released Date/Time: May 12, 2024 02:07 PM Reporting Lab: [facility] [address] [address] Performing Lab: [address] [address] INR 1.0 PROTIME 11.6 s 10.0-13.1 May 12, 2024 02:11 PM [place] CBC AND DIFF (AUTO) Specimen Type: BLOOD No comment entered. Ordering Provider: LEANNE BASILIO Report Released Date/Time: May 12, 2024 02:07 PM Reporting Lab: [facility] [address] [address] Performing Lab: [address] [address] WBC 6.86 10*3/uL 4.50-11.00 RBC 5.28 10*6/uL [...] 10*3/uL 0.00-0.00 May 12, 2024 02:11 PM [place] BASIC METABOLIC PANEL (non-fasting) Spe cimen Type: SERUM No comment entered. Ordering Provider: LEANNE BASILIO Report Released Date/Time: May 12, 2024 02:07 PM Reporting Lab: [facility] [address] [facility] [address] Performing Lab: [address] [address] UREA NITROGEN 18 mg/dL 7-25 GLUCOSE 244 mg/dL H 65-100 SODIUM 134 mmol/L L 135-145 POTASSIUM 4.4 mmol/L 3.5-5.0 CHLORIDE 100 mmol/L 100-110 CO2 25 meq/L 20-30 CREATININE, Serum 0.96 mg/dL 0.50-1.40 eGFR(CKD-EPI 2020) >90 mL/min >60 Encounter Notes: All associated encounter notes This section contains the clinical notes associated to the Encounter. Date/Time Encounter Note(s) Provider Source May 27, 2024 04:45 PM CLERICAL NOTE: LOCAL TITLE: APPOINTMENT NO SHOW STANDARD TITLE: CLERICAL NOTE DATE OF NOTE: MAY 27, 2024@16:45 ENTRY DATE: MAY 27, 2024@16:45:38 AUTHOR: MARCELO OVERTON EXP COSIGNER: URGENCY: STATUS: COMPLETED Patient Name: AUBRIE SINGH JR Patient SSN: [id number] Date and time of Appointment No show : 05/27/24 13:00 PATIENT PHONE - [phone] PHONE NUMBER [[email or web address]] - Patient's medical record was reviewed. Follow-up actions were determined and initiated: Please check/complete as applies: [X]Telephoned Directly [ ]Re-scheduled for next available appt [ ]Sent a N0-show letter ( must call for appointment) [ ]Other (Emergent/Overbook, etc.): Additional Comments: I left two messages asking him to call our MSAs at his convenience. Future Clinic Visits 05/28/2024 13:00 CWM/SO/PACT 3 [facility] 06/30/2024 15:00 [facility] PHARM PACT 1 /es/ MARCELO OVERTON, PH.D. PSYCHOLOGIST Signed: 05/27/2024 16:46 MARCELO OVERTON [place]
--- OUTSIDE RECORDS SUMMARY | 2024-06-26 04:06 | XMS_ITS | Encounter Summary ---
Author Name [facility] [place] Address [address] [place] [address] Care Team Providers Care Mill Helper Name Role Phone FAYE WYMAN Primary Care Provider Unavailabl e Selected Encounter This section includes the information on record at [place] for the Encounter. Date/Time Encounter Type Encounter Description Reason Pro vider Source May 12, 2024 02:00 PM Outpatient Encounter [facility] Encounter Template Text not used by [place] Plan of Treatment: Future Appointments (+ 6 months) and Future Tests (+/- 45 days) The Plan of Treatment section includes future care activities for the patient from all [place] treatmentfacilities. This section includes future appointments and future orders which are active, pending or scheduled. Future Appointments This section includes appointments that were scheduled to occur 6 months from the date of the Encounter, up to a maximum of 20 appointments. The data comes from all [place] treatment facilities. Appointment Date/Time Appointment Type Appointme nt Facility Name May 22, 2024 10:30 AM AMBULATORY - MEDICINE [facility] May 27, 2024 01:00 PM AMBULATORY - PSYCHIATRY [facility] May 28, 2024 01:00 PM AMBULATORY - MED[facility] Jun 17, 2024 03:30 PM AMBULATORY - MED[facility] Jun 30, 2024 03:00 PM AMBULATORY - MEDICINE [facility] Jul 15, 2024 03:30 PM AMBULATORY - NONE [facility] Jul 16, 2024 08:30 AM AMBULATORY - PSYCHIATRY [facility] Aug 24, 2024 03:30 PM AMBULATORY - MEDICINE [facility] Oct 16, 2024 03:30 PM AMBULATORY - MEDICINE [facility] Active, Pending, and Scheduled Orders This section includes a listing of several types of active, pending, and scheduled orders, including clinic medications orders, diagnostic test orders, procedure orders and consult orders; where the start date of the order is 45 days before the date of the Encounter or 45 days after the date of theEncounter. The data comes from all [place] treatment facilities. Test Date/Time Test Type Test Details Facility Name May 22, 2024 11:18 AM Consult Order TELE-EYE SCREENING CONSULT/[facility] (OUTPT) Cons Hris Coordinator's Choice [facility] May 22, 2024 12:08 PM Consult Order MENTAL HEALTH SERVICES/[facility] OUTPT Cons Hris Coordinator's Choice [facility] May 28, 2024 12:00 AM Laboratory - Chemistry Order MICROALBUMIN CREATININE RATIO PANEL URINE (RANDOM) [facility] Lab Results: +/- 30 days of the encounter This section includes the Chemistry and Hematology Lab Results on record with [place] for the patient. Radiology Reports and Pathology Reports are provided separately, in subsequent sections. Lab Results This section contains the Chemistry/Hematology Results that were resulted 30 days before or 30 daysafter the date of the Encounter. Date/Time Source Result Type Result - Unit Interpretation Reference Range Comment May 12, 2024 02:11 PM [facility] LIVER FUNCTION Specimen Type: SERUM No comment entered. Ordering Provider: LEANNE VAZ Report Released Date/Time: May 12, 2024 02:07 PM Reporting Lab: [address] [address] Performing Lab: [address] [address] PROTEIN,TOTAL 7.9 g/dL 6.0-8.3 ALBUMIN 3.9 g/dL 3.5-5.0 ALKALINE PHOSPHATASE 66 U/L 40-150 AST 17 U/L 5-34 ALT 29 U/L BILIRUBIN, TOTAL 0.5 mg/dL 0.2-1.2 May 12, 2024 02:11 PM [facility] LIPID PANEL, NON FASTING Specimen Type: SERUM No comment entered. Ordering Provider: LEANNE VAZ Report Released Date/Time: May 12, 2024 02:07 PM Reporting Lab: [facility] [address] [address] Performing Lab: [facility] [address] [address] CHOLESTEROL 267 mg/dL H TRIGLYCERIDE 270 mg/dL H 0-150 LDL calculated 177 mg/dL H 0-129 CHOL/HDL 7.4 HDL CHOLESTEROL 36 mg/dL L 40-60 May 12, 2024 02:11 PM [facility] TSH Specimen Type: SERUM No comment entered. Ordering Provider: LEANNE VAZ Report Released Date/Time: May 12, 2024 02:07 PM Reporting Lab: [facility] [address] Performing Lab: [facility] [address] [address] TSH 1.37 u[IU]/mL 0.35-5.00 May 12, 2024 02:11 PM [facility] HEMOGLOBIN A1C PANEL Specimen Type: BLOOD Comment: Values obtained from A1C measurements can vary. For atypical A1C assays, a reported value of 7.0 could actually be between 6.72 and 7.28 if measured by a reference method. A reported value of 9.0 could actually be between 8.73 and 9.27. Ref: http://www.ngs p.org/CAPdata. asp Ordering Provider: LEANNE VAZ Report Released Date/Time: May 12, 2024 02:07 PM Reporting Lab: [facility] [address] [address] Performing Lab: [facility] [address] [address] HEMOGLOBIN A1C 11.8 H 4.0-5.6 May 12, 2024 02:11 PM [facility] PSA Specimen Type: SERUM No comment entered. Ordering Provider: LEANNE VAZ Report Released Date/Time: May 12, 2024 02:07 PM Reporting Lab: [facility] [address] Performing Lab: [facility] [address] [address] PSA 0.57 ng/mL 0.00-4.00 May 12, 2024 02:11 PM [facility] PT & INR (COUMADIN) Specimen Type: PLASMA No comment entered. Ordering Provider: LEANNE VAZ Report Released Date/Time: May 12, 2024 02:07 PM Reporting Lab: [address] [address] Performing Lab: [address] [address] INR 1.0 PROTIME 11.6 s 10.0-13.1 May 12, 2024 02:11 PM [facility] CBC AND DIFF (AUTO) Specimen Type: BLOOD No comment entered. Ordering Provider: LEANNE VAZ Report Released Date/Time: May 12, 2024 02:07 PM Reporting Lab: [address] [address] Performing Lab: [address] [address] WBC 6.86 10*3/uL 4.50-11.00 RBC 5.28 10*6/uL [...] 10*3/uL 0.00-0.00 May 12, 2024 02:11 PM [facility] BASIC METABOLIC PANEL (non-fasting) Spe cimen Type: SERUM No comment entered. Ordering Provider: LEANNE VAZ Report Released Date/Time: May 12, 2024 02:07 PM Reporting Lab: [facility] [address] [address] Performing Lab: [facility] [address] [address] UREA NITROGEN 18 mg/dL 7-25 GLUCOSE 244 mg/dL H 65-100 SODIUM 134 mmol/L L 135-145 POTASSIUM 4.4 mmol/L 3.5-5.0 CHLORIDE 100 mmol/L 100-110 CO2 25 meq/L 20-30 CREATININE, Serum 0.96 mg/dL 0.50-1.40 eGFR(CKD-EPI 2020) >90 mL/min >60 Vital Signs: All taken on the encounter date This section contains inpatient and outpatient Vital Signs collected on the date of the Encounter. Date/Time Temperature Pulse Blood Pressure Respiratory Rate SP02 Pain Height Weight Body Mass Index Source May 12, 2024 01:39 PM 98.3 94 129/83 18 97 0 73 295 39 [facility] Encounter Notes: All associated encounter notes This section contains the clinical notes associated to the Encounter. Date/Time Encounter Note(s) Provider Source Jun 09, 2024 10:37 AM ADDENDUM: LOCAL TITLE: Addendum STANDARD TITLE: ADDENDUM DATE OF NOTE: JUN 09, 2024@10:37:48 ENTRY DATE: JUN 09, 2024@10:37:49 AUTHOR: VIKAS ZABALA EXP COSIGNER: URGENCY: STATUS: COMPLETED Attempt #1 to contact pt for 4 week apixaban follow-up. No answer, lvm requesting c/b. Will try again in 3 business days unless pt returns call sooner. /toro/ VIKAS ZABALA, PHARMD, BCGP [facility] Clinical Pharmacist Practitioner Signed: 06/09/2024 10:38 Receipt Acknowledged By: 06/09/2024 10:39 /toro/ HELEN ALBA CPHT Clinical Fire Prevention Captain --- Original Document --- 05/12/24 CONSULT REPORT/ANTICOAGULATION CLINIC: Initial Note: Anticoagulation DOAC Agent Progress Note Reason for visit: Initial Education for Apixaban/Eliquis Indication: DVT treatment Start Date: 05/12/2024 Expected Duration: TBD; possibly lifelong Referring Provider: Leanne Vaz NP Patient Contact: Patient has given permission to leave anticoagulation message on answering machine or with person listed. Subjective: Shelby seen in sick call today for dx DVT. Initial dx 04/2024 but could not afford apixaban. Was taking baby ASA. Attempted to go to sick call in [facility] yesterday for pain; sent to [facility]. DVT still present and apixaban recommended. He is requesting apixaban RX. Labwork collected and pending. Pt has not had medical care in 'a while'; lost insurance. Labs: CBC (last 90 days): CBC No data available for: WBC RBC HGB HCT MCV MCHC PLT RDW-CV NEUT % LYMPH % MONO % EOS % BASO % SrCr (last 6 weeks): CREATININE-EGFR - NONE FOUND CRCL IBW: Creat not found CRCL ACT: No Creat CRCL ADJ: <Not Found> Vitals: Weight (BMI): 295 lb [133.81 kg] (05/12/2024 13:39) BMI: 39.0 Height: 73 in [185.4 cm] (05/12/2024 13:39) Active Outpatient Medications (including Supplies): APIXABAN 5MG TAB TAKE TWO TABLETS BY MOUTH EVERY 12 HOURS ACTIVE FOR 7 DAYS, THEN TAKE ONE TABLET EVERY 12 HOURS Indication: DVT Interacting Meds: None; pt to bring medication list to [facility] visit in 1.5 weeks for reconciliation. No NSAIDs or interactions noted based on his recollection. Apixaban: The patient was provided with the following education: --Purpose of Apixaban --Signs and symptoms of stroke and thrombosis and what to do should they occur --Medication Identification --Dosing recommendations -Apixaban may be taken with or without food -Apixaban may be crushed --Storage recommendations -Store medication in a dry area at room temperature --Recommendations for missed doses or overdosage --Importance of medication compliance and avoiding lapses in therapy to minimize the risk of stroke --Monitor for signs/symptoms of bleeding, including: -Harcourt or brown urine -Red or black tarry stools -Coughing up blood -Vomiting blood or vomit that looks like coffee grounds -Reoccurring nosebleeds -Unusual bleeding from the gums -Bleeding from a cut that does not stop -Headaches, dizziness or weakness --Contact this clinic or provider if patient experiences and serious or intolerable adverse effects --Review risks associated with falling --Which medications to avoid due to drug interactions --Importance of notifying all providers of any medication patient is taking or changes that may occur --What to do if patient wants to discontinue therapy --Contact this clinic or provider if scheduled for a procedure --Contact number for the [facility] provided Assessment/Plan: - Initiate: Apixaban 10mg twice daily x 7 days then 5mg twice daily - Urgent need for RX; will issue the 30 day supply and review labwork on 05/12/24. It has been collected and is pending. Time Spent: 30 minutes Next Appt: May 13, 2024 ([facility] f/u of labwork) Jun 4 weeks Next PCP Appt: May EDUCATION Provided with verbal instructions: Yes Provided with written instructions: Yes *given during education* Barriers to learning: No Readiness to learn: Yes Specific dose directions reviewed: Yes Opportunity for questions/discussion: Yes Reports understanding of instructions: Yes Further learning needs: No PBM PharmD Pharmacotherapy Rem V12: PHARMACIST INTERVENTIONS: ANTICOAGULATION THERAPY DIRECT ORAL ANTICOAGULANT (DOAC) MANAGEMENT Initiate medication Medication reconciliation (changes to active VA and non-VA medication lists to reconcile differences) Changes to medication lists made Add or renew medication /toro/ Demario Gayle PharmD Clinical Pharmacy Practitioner Signed: 05/12/2024 14:43 Receipt Acknowledged By: 05/12/2024 14:45 /toro/ HELEN ALBA CPHT Clinical Fire Prevention Captain 05/12/2024 ADDENDUM STATUS: COMPLETED An INR was performed by a lab outside the [place]. Patient reports outside Hgb results: Date: March 10, 2024 Results: 15.5 Location: Outside Healthcare Provider Patient reports outside HCT results: Date: March 10, 2024 Results: 44.1 Location: Outside Healthcare Provider Patient reports outside PLT results: Date: March 10, 2024 Results: 259 Location: Outside Healthcare Provider Patient reports outside SCR results: Date: March 10, 2024 Results: 0.91 Location: Outside Healthcare Provider Patient reports outside BUN results: Date: March 10, 2024 Results: 19 Location: Outside Healthcare Provider Patient reports outside ALT results: Date: March 10, 2024 Results: 25 Location: Outside Healthcare Provider Patient reports outside AST results: Date: March 10, 2024 Results: 16 Location: Outside Healthcare Provider /toro/ Demario Gayle PharmD Clinical Pharmacy Practitioner Signed: 05/12/2024 15:34 05/13/2024 ADDENDUM STATUS: COMPLETED ---- GENERAL CHEMISTRY ---- SERUM May 122024 14:11 Units Ranges GLUCOSE 244 H mg/dL 65 - 100 BUN 18 mg/dL 7 - 25 CREATININE 0.96 mg/dL .5 - 1.4 eGFR(IDMS) Ref: >=60 CREAT mg/dL .5 - 1.5 eGFR See Eval Ref: See Eval Sodium 134 L mmol/L 135 - 145 K+/Pot 4.4 mmol/L 3.5 - 5 CL 100 mmol/L 100 - 110 CO2 25 mEq/L 20 - 30 CA mg/dL 8.5 - 10.2 UricAci mg/dL 3.5 - 7.2 NH3/Amm PO4 mg/dL 2.5 - 5 T. PROT 7.9 g/dL 6 - 8.3 ALBUMIN 3.9 g/dL 3.5 - 5 T BILI 0.5 mg/dL .2 - 1.2 D. BILI mg/dL 0 - .5 AST 17 U/L 5 - 34 ALT 29 U/L <6 - 55 GGT U/L 10 - 65 ALK BILL 66 U/L 40 - 150 ---- CBC and AUTO DIFF ---- BLOOD May 12 Reference 2024 14:11 Units Ranges WBC 6.86 K/cmm 4.5 - 11 RBC 5.28 M/cmm 4.23 - 5.66 HGB 15.8 g/dL 12.8 - 17 HCT 45.8 % 39.2 - 50.4 MCV 86.7 fl 82 - 99 MCH 29.9 pg 26.2 - 32.6 MCHC 34.5 g/dL 30.8 - 35.1 RDW 12.0 % 12 - 16 PLT 270 K/cmm 140 - 360 Continue with plan. F/u Jun 4 weeks. /toro/ Demario Gayle PharmD Clinical Pharmacy Practitioner Signed: 05/13/2024 11:16 Receipt Acknowledged By: 05/13/2024 11:17 /toro/ HELEN ALBA CPHT Clinical Fire Prevention Captain VIKAS ZABALA [facility] May 13, 2024 11:15 AM ADDENDUM: LOCAL TITLE: Addendum STANDARD TITLE: ADDENDUM DATE OF NOTE: MAY 13, 2024@11:15:19 ENTRY DATE: MAY 13, 2024@11:15:20 AUTHOR: DEMARIO GAYLE EXP COSIGNER: URGENCY: STATUS: COMPLETED ---- GENERAL CHEMISTRY ---- SERUM May 12 Reference 2024 14:11 Units Ranges GLUCOSE 244 H mg/dL 65 - 100 BUN 18 mg/dL 7 - 25 CREATININE 0.96 mg/dL .5 - 1.4 eGFR(IDMS) Ref: >=60 CREAT mg/dL .5 - 1.5 eGFR See Eval Ref: See Eval Sodium 134 L mmol/L 135 - 145 K+/Pot 4.4 mmol/L 3.5 - 5 CL 100 mmol/L 100 - 110 CO2 25 mEq/L 20 - 30 CA mg/dL 8.5 - 10.2 UricAci mg/dL 3.5 - 7.2 NH3/Amm PO4 mg/dL 2.5 - 5 T. PROT 7.9 g/dL 6 - 8.3 ALBUMIN 3.9 g/dL 3.5 - 5 T BILI 0.5 mg/dL .2 - 1.2 D. BILI mg/dL 0 - .5 AST 17 U/L 5 - 34 ALT 29 U/L <6 - 55 GGT U/L 10 - 65 ALK BILL 66 U/L 40 - 150 ---- CBC and AUTO DIFF ---- BLOOD May 12 Reference 2024 14:11 Units Ranges WBC 6.86 K/cmm 4.5 - 11 RBC 5.28 M/cmm 4.23 - 5.66 HGB 15.8 g/dL 12.8 - 17 HCT 45.8 % 39.2 - 50.4 MCV 86.7 fl 82 - 99 MCH 29.9 pg 26.2 - 32.6 MCHC 34.5 g/dL 30.8 - 35.1 RDW 12.0 % 12 - 16 PLT 270 K/cmm 140 - 360 Continue with plan. F/u Jun 4 weeks. /toro/ Demario Gayle PharmD Clinical Pharmacy Practitioner Signed: 05/13/2024 11:16 Receipt Acknowledged By: 05/13/2024 11:17 /toro/ HELEN ALBA CPHT Clinical Fire Prevention Captain --- Original Document --- 05/12/24 CONSULT REPORT/ANTICOAGULATION CLINIC: Initial Note: Anticoagulation DOAC Agent Progress Note Reason for visit: Initial Education for Apixaban/Eliquis Indication: DVT treatment Start Date: 05/12/2024 Expected Duration: TBD; possibly lifelong Referring Provider: Leanne Vaz NP Patient Contact: Patient has given permission to leave anticoagulation message on answering machine or with person listed. Subjective: Shelby seen in sick call today for dx DVT. Initial dx 04/2024 but could not afford apixaban. Was taking baby ASA. Attempted to go to sick call in [facility] yesterday for pain; sent to [facility]. DVT still present and apixaban recommended. He is requesting apixaban RX. Labwork collected and pending. Pt has not had medical care in 'a while'; lost insurance. Labs: CBC (last 90 days): CBC No data available for: WBC RBC HGB HCT MCV MCHC PLT RDW-CV NEUT % LYMPH % MONO % EOS % BASO % SrCr (last 6 weeks): CREATININE-EGFR - NONE FOUND CRCL IBW: Creat not found CRCL ACT: No Creat CRCL ADJ: <Not Found> Vitals: Weight (BMI): 295 lb [133.81 kg] (05/12/2024 13:39) BMI: 39.0 Height: 73 in [185.4 cm] (05/12/2024 13:39) Active Outpatient Medications (including Supplies): APIXABAN 5MG TAB TAKE TWO TABLETS BY MOUTH EVERY 12 HOURS ACTIVE FOR 7 DAYS, THEN TAKE ONE TABLET EVERY 12 HOURS Indication: DVT Interacting Meds: None; pt to bring medication list to [facility] visit in 1.5 weeks for reconciliation. No NSAIDs or interactions noted based on his recollection. Apixaban: The patient was provided with the following education: --Purpose of Apixaban --Signs and symptoms of stroke and thrombosis and what to do should they occur --Medication Identification --Dosing recommendations -Apixaban may be taken with or without food -Apixaban may be crushed --Storage recommendations -Store medication in a dry area at room temperature --Recommendations for missed doses or overdosage --Importance of medication compliance and avoiding lapses in therapy to minimize the risk of stroke --Monitor for signs/symptoms of bleeding, including: -Harcourt or brown urine -Red or black tarry stools -Coughing up blood -Vomiting blood or vomit that looks like coffee grounds -Reoccurring nosebleeds -Unusual bleeding from the gums -Bleeding from a cut that does not stop -Headaches, dizziness or weakness --Contact this clinic or provider if patient experiences and serious or intolerable adverse effects --Review risks associated with falling --Which medications to avoid due to drug interactions --Importance of notifying all providers of any medication patient is taking or changes that may occur --What to do if patient wants to discontinue therapy --Contact this clinic or provider if scheduled for a procedure --Contact number for the [facility] provided Assessment/Plan: - Initiate: Apixaban 10mg twice daily x 7 days then 5mg twice daily - Urgent need for RX; will issue the 30 day supply and review labwork on 05/12/24. It has been collected and is pending. Time Spent: 30 minutes Next Appt: May 13, 2024 ([facility] f/u of labwork) Jun 4 weeks Next PCP Appt: May EDUCATION Provided with verbal instructions: Yes Provided with written instructions: Yes *given during education* Barriers to learning: No Readiness to learn: Yes Specific dose directions reviewed: Yes Opportunity for questions/discussion: Yes Reports understanding of instructions: Yes Further learning needs: No PBM PharmD Pharmacotherapy Rem V12: PHARMACIST INTERVENTIONS: ANTICOAGULATION THERAPY DIRECT ORAL ANTICOAGULANT (DOAC) MANAGEMENT Initiate medication Medication reconciliation (changes to active VA and non-VA medication lists to reconcile differences) Changes to medication lists made Add or renew medication /toro/ Demario Gayle PharmD Clinical Pharmacy Practitioner Signed: 05/12/2024 14:43 Receipt Acknowledged By: 05/12/2024 14:45 /toro/ HELEN ALBA CPHT Clinical Fire Prevention Captain 05/12/2024 ADDENDUM STATUS: COMPLETED An INR was performed [facility] a [facility]. Patient reports outside Hgb results: Date: March 10, 2024 Results: 15.5 Location: Outside Healthcare Provider Patient reports outside HCT results: Date: March 10, 2024 Results: 44.1 Location: Outside Healthcare Provider Patient reports outside PLT results: Date: March 10, 2024 Results: 259 Location: Outside Healthcare Provider Patient reports outside SCR results: Date: March 10, 2024 Results: 0.91 Location: Outside Healthcare Provider Patient reports outside BUN results: Date: March 10, 2024 Results: 19 Location: Outside Healthcare Provider Patient reports outside ALT results: Date: March 10, 2024 Results: 25 Location: Outside Healthcare Provider Patient reports outside AST results: Date: March 10, 2024 Results: 16 Location: Outside Healthcare Provider /toro/ Demario Gayle PharmD Clinical Pharmacy Practitioner Signed: 05/12/2024 15:34 DEMARIO GAYLE [facility] May 12, 2024 02:40 PM PHARMACY MEDICATIO N MGT CONSULT: LOCAL TITLE: CONSULT REPORT/ANTICOAGULATION CLINIC STANDARD TITLE: PHARMACY MEDICATION MGT CONSULT DATE OF NOTE: MAY 12, 2024@14:40 ENTRY DATE: MAY 12, 2024@14:40:05 AUTHOR: DEMARIO GAYLE EXP COSIGNER: URGENCY: STATUS: COMPLETED CONSULT REPORT/ANTICOAGULATION CLINIC Has ADDENDA Initial Note: Anticoagulation DOAC Agent Progress Note Reason for visit: Initial Education for Apixaban/Eliquis Indication: DVT treatment Start Date: 05/12/2024 Expected Duration: TBD; possibly lifelong Referring Provider: Leanne Vaz NP Patient Contact: Patient has given permission to leave anticoagulation message on answering machine or with person listed. Subjective: Shelby seen in sick call today for dx DVT. Initial dx 04/2024 but could not afford apixaban. Was taking baby ASA. Attempted to go to sick call in [facility] yesterday for pain; sent to [facility]. DVT still present and apixaban recommended. He is requesting apixaban RX. Labwork collected and pending. Pt has not had medical care in 'a while'; lost insurance. Labs: CBC (last 90 days): CBC No data available for: WBC RBC HGB HCT MCV MCHC PLT RDW-CV NEUT % LYMPH % MONO % EOS % BASO % SrCr (last 6 weeks): CREATININE-EGFR - NONE FOUND CRCL IBW: Creat not found CRCL ACT: No Creat CRCL ADJ: <Not Found> Vitals: Weight (BMI): 295 lb [133.81 kg] (05/12/2024 13:39) BMI: 39.0 Height: 73 in [185.4 cm] (05/12/2024 13:39) Active Outpatient Medications (including Supplies): APIXABAN 5MG TAB TAKE TWO TABLETS BY MOUTH EVERY 12 HOURS ACTIVE FOR 7 DAYS, THEN TAKE ONE TABLET EVERY 12 HOURS Indication: DVT Interacting Meds: None; pt to bring medication list to [facility] visit in 1.5 weeks for reconciliation. No NSAIDs or interactions noted based on his recollection. Apixaban: The patient was provided with the following education: --Purpose of Apixaban --Signs and symptoms of stroke and thrombosis and what to do should they occur --Medication Identification --Dosing recommendations -Apixaban may be taken with or without food -Apixaban may be crushed --Storage recommendations -Store medication in a dry area at room temperature --Recommendations for missed doses or overdosage --Importance of medication compliance and avoiding lapses in therapy to minimize the risk of stroke --Monitor for signs/symptoms of bleeding, including: -Harcourt or brown urine -Red or black tarry stools -Coughing up blood -Vomiting blood or vomit that looks like coffee grounds -Reoccurring nosebleeds -Unusual bleeding from the gums -Bleeding from a cut that does not stop -Headaches, dizziness or weakness --Contact this clinic or provider if patient experiences and serious or intolerable adverse effects --Review risks associated with falling --Which medications to avoid due to drug interactions --Importance of notifying all providers of any medication patient is taking or changes that may occur --What to do if patient wants to discontinue therapy --Contact this clinic or provider if scheduled for a procedure --Contact number for the [facility] provided Assessment/Plan: - Initiate: Apixaban 10mg twice daily x 7 days then 5mg twice daily - Urgent need for RX; will issue the 30 day supply and review labwork on 05/12/24. It has been collected and is pending. Time Spent: 30 minutes Next Appt: May 13, 2024 ([facility] f/u of labwork) Jun 4 weeks Next PCP Appt: May EDUCATION Provided with verbal instructions: Yes Provided with written instructions: Yes *given during education* Barriers to learning: No Readiness to learn: Yes Specific dose directions reviewed: Yes Opportunity for questions/discussion: Yes Reports understanding of instructions: Yes Further learning needs: No PBM PharmDanilo Pharmacotherapy Rem V12: PHARMACIST INTERVENTIONS: ANTICOAGULATION THERAPY DIRECT ORAL ANTICOAGULANT (DOAC) MANAGEMENT Initiate medication Medication reconciliation (changes to active [facility] and non-VA medication lists to reconcile differences) Changes to medication lists made Add or renew medication /toro/ Demario Gayle PharmD Clinical Pharmacy Practitioner Signed: 05/12/2024 14:43 Receipt Acknowledged By: 05/12/2024 14:45 /toro/ HELEN ALBA CPHT Clinical Fire Prevention Captain 05/12/2024 ADDENDUM STATUS: COMPLETED An INR was performed by a lab outside the [place]. Patient reports outside Hgb results: Date: March 10, 2024 Results: 15.5 Location: Outside Healthcare Provider Patient reports outside HCT results: Date: March 10, 2024 Results: 44.1 Location: Outside Healthcare Provider Patient reports outside PLT results: Date: March 10, 2024 Results: 259 Location: Outside Healthcare Provider Patient reports outside SCR results: Date: March 10, 2024 Results: 0.91 Location: Outside Healthcare Provider Patient reports outside BUN results: Date: March 10, 2024 Results: 19 Location: Outside Healthcare Provider Patient reports outside ALT results: Date: March 10, 2024 Results: 25 Location: Outside Healthcare Provider Patient reports outside AST results: Date: March 10, 2024 Results: 16 Location: Outside Healthcare Provider /brendon Gayle PharmD Clinical Pharmacy Practitioner Signed: 05/12/2024 15:34 05/13/2024 ADDENDUM STATUS: COMPLETED ---- GENERAL CHEMISTRY ---- SERUM May 12 Reference 2024 14:11 Units Ranges GLUCOSE 244 H mg/dL 65 - 100 BUN 18 mg/dL 7 - 25 CREATININE 0.96 mg/dL .5 - 1.4 eGFR(IDMS) Ref: >=60 CREAT mg/dL .5 - 1.5 eGFR See Eval Ref: See Eval Sodium 134 L mmol/L 135 - 145 K+/Pot 4.4 mmol/L 3.5 - 5 CL 100 mmol/L 100 - 110 CO2 25 mEq/L 20 - 30 CA mg/dL 8.5 - 10.2 Uric[employer]ci mg/dL 3.5 - 7.2 NH3/Amm PO4 mg/dL 2.5 - 5 T. PROT 7.9 g/dL 6 - 8.3 ALBUMIN 3.9 g/dL 3.5 - 5 T BILI 0.5 mg/dL .2 - 1.2 D. BILI mg/dL 0 - .5 AST 17 U/L 5 - 34 ALT 29 U/L <6 - 55 GGT U/L 10 - 65 ALK BILL 66 U/L 40 - 150 ---- CBC and AUTO DIFF ---- BLOOD May 12 Reference 2024 14:11 Units Ranges WBC 6.86 K/cmm 4.5 - 11 RBC 5.28 M/cmm 4.23 - 5.66 HGB 15.8 g/dL 12.8 - 17 HCT 45.8 % 39.2 - 50.4 MCV 86.7 fl 82 - 99 MCH 29.9 pg 26.2 - 32.6 MCHC 34.5 g/dL 30.8 - 35.1 RDW 12.0 % 12 - 16 PLT 270 K/cmm 140 - 360 Continue with plan. F/u Jun 4 weeks. /toro/ Demario Gayle PharmD Clinical Pharmacy Practitioner Signed: 05/13/2024 11:16 Receipt Acknowledged By: 05/13/2024 11:17 /toro/ HELEN ALBA CPHT Clinical Fire Prevention Captain 06/09/2024 ADDENDUM STATUS: COMPLETED Attempt #1 to contact pt for 4 week apixaban follow-up. No answer, lvm requesting c/b. Will try again in 3 business days unless pt returns call sooner. /toro/ VIKAS ZABALA, JARREDD, [facility] Clinical Pharmacist Practitioner Signed: 06/09/2024 10:38 Receipt Acknowledged By: 06/09/2024 10:39 /es/ HELEN ALBA [facility] Clinical Fire Prevention Captain DEMARIO GAYLE
--- OUTSIDE RECORDS SUMMARY | 2024-06-26 04:06 | XMS_ITS | Encounter Summary ---
Author Name [facility] Address [address] [place] [address] Care Team Providers Care Edge Burnisher Uppers Name Role Phone FAYE WYMAN Primary Care Provider Unavailabl e Selected Encounter This section includes the information on record at [place] for the Encounter. Date/Time Encounter Type Encounter Description Reason Provider Source May 28, 2024 01:00 PM OFFICE O/P EST MOD 30 MIN PRIMARY CARE/MEDICINE ICD-10-CM E11.9 Type 2 diabetes mellitus without complications FAYE WYMAN Brianna Encounter Template Text not used by [place] Assessments - Encounter Diagnoses This section includes the primary and secondary diagnoses documented for the Encounter. Date/Time Primary/Secondary Diagnosis Diagnosis Name Provider Source May 28, 2024 01:50 PM PRIMARY Type 2 diabetes mellitus without complications FAYE WYMAN May 28, 2024 01:50 PM SECONDARY Acute embolism and thombos unsp deep vn unsp lower extremity FAYE WYMAN May 28, 2024 01:50 PM SECONDARY Essential (primary) hypertension FAYE WYMAN Plan of Treatment: Future Appointments (+ 6 months) and Future Tests (+/- 45 days) The Plan of Treatment section includes future care activities for the patient from all [place] treatmentfacilities. This section includes future appointments and future orders which are active, pending or scheduled. Future Appointments This section includes appointments that were scheduled to occur 6 months from the date of the Encounter, up to a maximum of 20 appointments. The data comes from all [place] treatment facilities. Appointment Date/Time Appointment Type Appointme nt Facility Name Jun 17, 2024 03:30 PM AMBULATORY - MEDICINE [facility] Jun 30, 2024 03:00 PM [facility] Jul 15, 2024 03:30 PM [facility] Jul 16, 2024 08:30 AM AMBULATORY - PSYCHIATRY [facility] Aug 24, 2024 03:30 PM [facility] Oct 16, 2024 03:30 PM AMBULATORY - MEDICINE [facility] Active, Pending, and Scheduled Orders This section includes a listing of several types of active, pending, and scheduled orders, including clinic medications orders, diagnostic test orders, procedure orders and consult orders; where the start date of the order is 45 days before the date of the Encounter or 45 days after the date of theEncounter. The data comes from all [place] treatment facilities. Test Date/Time Test Type Test Details Facility Name May 22, 2024 11:18 AM Consult Order TELE-EYE SCREENING CONSULT/SPOPC (OUTPT) Cons Parenting Skills Instructor's Choice [facility] May 22, 2024 12:08 PM Consult Order MENTAL HEALTH SERVICES/SPOP[facility] OUTPT Cons Parenting Skills Instructor's Choice [facility] May 28, 2024 12:00 AM Laboratory - Chemistry Order MICROALBUMIN CREATININE RATIO PANEL URINE (RANDOM) [facility] Jul 10, 2024 12:00 AM Laboratory - Chemistry Order CBC AND DIFF (AUTO) BLOOD (LAV-BLOOD) [facility] Jul 10, 2024 12:00 AM Laboratory - Chemistry Order PSA BLOOD (SST-SERUM) [facility] Jul 10, 2024 12:00 AM Laboratory - Chemistry Order TSH BLOOD (SST-SERUM) [facility] Jul 10, 2024 12:00 AM Laboratory - Chemistry Order VITAMIN D (25-OH) BLOOD (SST-SERUM) [facility] Jul 10, 2024 12:00 AM Laboratory - Chemistry Order URINALYSIS URINE [facility] Jul 10, 2024 12:00 AM Laboratory - Chemistry Order MICROALBUMIN CREATININE RATIO PANEL URINE (RANDOM) [facility] Jul 10, 2024 12:00 AM Laboratory - Chemistry Order HEMOGLOBIN A1C PANEL BLOOD (LAV-BLOOD) [facility] Jul 10, 2024 12:00 AM Laboratory - Chemistry Order BASIC METABOLIC PANEL (fasting) BLOOD (SST-SERUM) [facility] Jul 10, 2024 12:00 AM Laboratory - Chemistry Order LIVER FUNCTION BLOOD (SST-SERUM) [facility] Jul 10, 2024 12:00 AM Laboratory - Chemistry Order LIPID PANEL FASTING BLOOD ([facility]) [facility] Jul 10, 2024 12:00 AM Laboratory - Chemistry Order URIC ACID BLOOD ([facility]-SERUM) [facility] Jul 10, 2024 12:00 AM Laboratory - Chemistry Order CALCIUM BLOOD ([facility]-SERUM) [facility] Lab Results: +/- 30 days of the encounter This section includes the Chemistry and Hematology Lab Results on record with [place] for the patient. Radiology Reports and Pathology Reports are provided separately, in subsequent sections. Lab Results This section contains the Chemistry/Hematology Results that were resulted 30 days before or 30 daysafter the date of the Encounter. Date/Time Source Result Type Result - Unit Interpretation Reference Range Comment May 12, 2024 02:11 PM [place] LIVER FUNCTION Specimen Type: SERUM No comment entered. Ordering Provider: LEANNE BASILIO Report Released Date/Time: May 12, 2024 02:07 PM Reporting Lab: [address] [address] Performing Lab: [address] [address] PROTEIN,TOTAL 7.9 g/dL 6.0-8.3 ALBUMIN 3.9 g/dL 3.5-5.0 ALKALINE PHOSPHATASE 66 U/L 40-150 AST 17 U/L 5-34 ALT 29 U/L BILIRUBIN, TOTAL 0.5 mg/dL 0.2-1.2 May 12, 2024 02:11 PM [place] LIPID PANEL, NON FASTING Specimen Type: SERUM No comment entered. Ordering Provider: LEANNE BASILIO Report Released Date/Time: May 12, 2024 02:07 PM Reporting Lab: [address] [address] Performing Lab: [address] [address] CHOLESTEROL 267 mg/dL H TRIGLYCERIDE 270 mg/dL H 0-150 LDL calculated 177 mg/dL H 0-129 CHOL/HDL 7.4 HDL CHOLESTEROL 36 mg/dL L 40-60 May 12, 2024 02:11 PM [place] TSH Specimen Type: SERUM No comment entered. Ordering Provider: LEANNE BASILIO Report Released Date/Time: May 12, 2024 02:07 PM Reporting [facility] [address] [address] Performing Lab: [address] [address] TSH 1.37 u[IU]/mL 0.35-5.00 May 12, 2024 02:11 PM [place] HEMOGLOBIN A1C PANEL Specimen Type: BLOOD Comment: [...] May 12, 2024 02:07 PM Reporting Lab: [address] [address] Performing Lab: [address] [address] HEMOGLOBIN A1C 11.8 H 4.0-5.6 May 12, 2024 02:11 PM [place] PSA Specimen Type: SERUM No comment entered. Ordering Provider: LEANNE BASILIO Report Released Date/Time: May 12, 2024 02:07 PM Reporting Lab: [address] [address] Performing Lab: [address] [address] PSA 0.57 ng/mL 0.00-4.00 May 12, 2024 02:11 PM [place] PT & INR (COUMADIN) Specimen Type: PLASMA No comment entered. Ordering Provider: LEANNE BASILIO Report Released Date/Time: May 12, 2024 02:07 PM Reporting Lab: [address] [address] Performing Lab: [address] [address] INR 1.0 PROTIME 11.6 s 10.0-13.1 May 12, 2024 02:11 PM [place] CBC AND DIFF (AUTO) Specimen Type: BLOOD No comment entered. Ordering Provider: LEANNE BASILIO Report Released Date/Time: May 12, 2024 02:07 PM Reporting Lab: [address] [address] Performing Lab: [address] [address] WBC 6.86 10*3/uL 4.50-11.00 RBC 5.28 10*6/uL [...] 10*3/uL 0.00-0.00 May 12, 2024 02:11 PM [place] BASIC METABOLIC PANEL (non-fasting) Spe cimen Type: SERUM No comment entered. Ordering Provider: LEANNE BASILIO Report Released Date/Time: May 12, 2024 02:07 PM Reporting Lab: [address] [address] Performing Lab: [place] [facility] [address] [facility] [address] UREA NITROGEN 18 mg/dL 7-25 GLUCOSE 244 [...] Height Weight Body Mass Index Source May 28, 2024 01:48 PM 142/78 [facility] [place] May 28, 2024 01:07 PM 97 97 153/93 18 97 297 39 [facility] Social History: Smoking Status (Most current) and Tobacco Use (All prior to encounter date) This section includes the most current, and the historical, smoking and tobacco- related health factors from the [place] facility where the Encounter took place. Current Smoking Status This section includes the most current smoking, or tobacco-related health factor, from the [place] facility where the Encounter took place. Date/Time Current Smoking Status Comment Madyson ity May 28, 2024 01:00 PM [place]-TOBACCO NEVER USED CIGARETTES [facility] Tobacco Use History This section includes a history of the smoking, or tobacco-related health factors, that were collected on or before the date of the Encounter. The data comes from the [place] facility where the Encounter took place. Date/Time Smoking Status/Tobacco Use Comment F acility May 28, 2024 01:00 PM [place]-TOBACCO NEVER USED OTHER TYPE [facility] Encounter Notes: All associated encounter notes This section contains the clinical notes associated to the Encounter. Date/Time Encounter Note(s) Provider Source Jun 01, 2024 04:04 PM ADDENDUM: LOCAL TITLE: Addendum STANDARD TITLE: ADDENDUM DATE OF NOTE: JUN 01, 2024@16:04:26 ENTRY DATE: JUN 01, 2024@16:04:26 AUTHOR: LEANNE BASILIO EXP COSIGNER: URGENCY: STATUS: COMPLETED Please reassign to [place] PACT 1Татьяна. Thank you. /toro/ LEANNE BASILIO NP NURSE PRACTITIONER Signed: 06/01/2024 16:04 Receipt Acknowledged By: 06/03/2024 09:16 /toro/ DWIGHT MUNOZ ADVANCE ASSOCIATE PROFESSOR OF LITERACY 06/03/2024 09:57 /es/ KAYLA You [facility] Batch Or Continuous Still Operator --- Original Document --- 05/28/24 KARIN NOTE: S - new patient and post[place], but [place] to get doag for dvt that was dx'd in er may 30 O - coop A&Ox3 NAD W-N/H/D HEENT: benign NECK: not tender; no adeno LUNGS: resp full reg unlabored; CTA b/l COR: RRR, no M ABD: EXT: oedema from DVT, 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 LABS: reviewed w/ pt A/P - 1) 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 Calf - 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 2) DM II - has had it for about 10 yrs Diabetic Neuropathy (Mild at this Point) - health care fractured - not taken any meds for long while - LABS: A1C 11.8 and FBS 244 on MAY 30 - then Rx'd Metformin and Glipizide on MAY 30 - saw Diabet Pharm D on MAY 30 see Consult Report Prior-Auth / Non-Form Drug Note Dated JAN 28 - diet, wt - foot eye care - pending a f/u appt w/ Pharm D on JUN 30 3) HTN Today - BP 142/78 4) Renal Funct Preserved - eGFR 90 in MAY 30 Creat and Lytes WNL - Re-Start Zestril, 5 MG/Day as Nephro-Protective Agent 5) Hypercholesterolemia - LDL 177 in MAY 30 - Newly Started on Crestor 6) C/V Status o/w Stable - never SC 7) Neuro Stable - never CVA/TIA RTC JUL 28 - [facility] Homelessness/Food Insecurity Screen: In the past 2 months, have you been living in stable housing that you own, rent, or stay in as part of a household? Yes - Living in stable housing. Are you worried or concerned that in the next 2 months you may NOT have stable housing that you own, rent, or stay in as part of a household? No - Not worried about housing near future [facility] reports the following: Within the past 12 months, you worried whether your food would run out before you got money to buy more. Never true Within the past 12 months, the food you bought just didn't last and you didn't have money to get more. Never true Toxic Exposure Screening: The /caregiver was asked if they believe the [place] experienced any toxic exposure(s), such as Airborne Hazards and Open Burn [place], [place] War related exposures, Agent [place], Radiation, contaminated water at [place] or other such exposures, while serving in the [employer]. 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 The /caregiver was informed that we will continue to ask this screening question every 5 years. They can contact their provider/healthcare team if they have concerns about exposures and would like to be screened sooner. Printed information was offered and provided if desired. Depression Screening: Perform PHQ-2 A PHQ-2 screen was performed. The score was 0 which is a negative screen for depression. Over the past two weeks, how often have you been bothered by the following problems? 1. Little interest or pleasure in doing things Not at all 2. Feeling down, depressed, or hopeless Not at all MST Screening: Patient denies experiencing sexual trauma (MST). Preferred Language: What is your, or your caregiver's preferred language for healthcare? Preferred Language: [place] PTSD Screening: PC-PTSD-5 A PTSD screening test (PC-PTSD-5) was negative (score=0). IN THE PAST MONTH, have you ever had any experience that was so frightening, horrible or traumatic. For example: A serious accident or fire a physical or sexual assault or abuse An earthquake or flood A war Seeing someone be killed or seriously injured Having a loved one through homicide or suicide 1. Have you ever experienced this kind of event? NO 2. Had nightmares about the event(s) or thought about the event(s) when you did not want to? Response not required due to responses to other questions. 3. Tried hard not to think about the event(s) or went out of your way to avoid situations that reminded you of the event(s)? Response not required due to responses to other questions. 4. Been constantly on guard, watchful, or easily startled? Response not required due to responses to other questions. 5. [place] numb or detached from people, activities, or your surroundings? Response not required due to responses to other questions. 6. [place] guilty or unable to stop blaming yourself or others for the event(s) or any problems the event(s) may have caused? Response not required due to responses to other questions. Tobacco Use Screening: The patient has never smoked cigarettes. The patient has never used other types of tobacco. Alcohol Use Screen (AUDIT-C): Alcohol Screen: SCREEN FOR ALCOHOL (AUDIT-C) An alcohol screening test (AUDIT-C) was negative (score=1). 1. How often did you have a drink containing alcohol in the past year? Consider a drink to be a 12 ounce can or bottle of regular beer, 8 ounces of malt liquor, a 5 ounce glass of table wine, or a 1.5 ounce shot of liquor (like scotch, gin, or vodka). Monthly or less 2. How many drinks containing alcohol did you have on a typical day when you were drinking in the past year? One or two drinks 3. How often did you have six or more drinks on one occasion in the past year? Never HTN Assess for Elevated BP>=140/90: The patient's medication regimen was adjusted to improve blood pressure control. Comment: evelina MORALES Foot Check: A complete foot check was completed at this encounter. VISUAL INSPECTION: blister hallux left foot Includes inspection for skin breaks, deformity, erythema, trauma, pallor on elevation, dependent rubor, nail deformities, extensive callus and pitting edema. Visual exam results: Normal Comment: abnl PEDAL PULSES: Includes palpation of dorsalis and posterior tibial pulses and signs/symptoms of vascular compromise like pain, pallor, parasthesia or paralysis. Present (even if diminished) Comment: not appreciable due to swelling SENSORY CHECK: Includes 10 gram Monofilament ([place]-Pam) test of sensation. Intact (Greater than or equal to 80% of sites checked) Abnormal (Less than 80% of sites checked): Intact Comment: decreased LOW-RISK: LOW RISK INFORMATION PROVIDED: 1. Advised patient not to walk barefoot. 2. Explained the importance of daily foot checks for changes. 3. Stressed the importance of daily foot hygiene, including bathing and complete drying. Diabetes: Kidney Health Evaluation: Last eGFR: EGFR Collection DT Specimen Test Name Result Units Ref Range 05/12/2024 14:11 SERUM eGFR(CKD-EPI 2020 >90 mL/min Ref: >=60 Last uACR: No uACR found within the past year uACR (Urine Albumin-Creatinine Ratio) Quantitative urine creatinine and quantitative urine albumin lab tests were ordered. Medication Reconciliation: Outpatient: Has the patient been taking medications as documented in the EMLR? YES: The patient has been taking medications as documented in the EMLR. Essential Medication List for Review used to complete this medication reconciliation. INCLUDED IN THIS LIST: Alphabetical list of active outpatient prescriptions dispensed from this [facility] (local) and dispensed from another [place] or [facility] facility (remote) as well as inpatient orders (local, pending and active), local clinic medications, locally documented non-VA medications, and local prescriptions that have or been discontinued in the past 90 days. - All changes in medications, including all non-VA/Herbal/OTC medications were entered into CPRS. Changes: nt - If there were any medications the patient should no longer take, they were discontinued. - The patient/caregiver was instructed to update this list, discard old lists, and take this list to the next appointment, whether with a VA or non-VA provider. /toro/ FAYE WYMAN PA-C STAFF PHYSICIAN BAGGAGE HANDLING SUPERVISOR Signed: 05/28/2024 13:51 06/03/2024 ADDENDUM STATUS: COMPLETED IS BOOKED FOR A FOLLOW UP APPT w/PACT 1 08/24/24 /toro/ DWIGHT MUNOZ ADVANCE ASSOCIATE PROFESSOR OF LITERACY Signed: 06/03/2024 09:16 LEANNE BASILIO May 28, 2024 01:08 PM PREVENTIVE MEDICIN E NURSING NOTE: LOCAL TITLE: CLINICAL REMINDERS/NURSING STANDARD TITLE: PREVENTIVE MEDICINE NURSING NOTE DATE OF NOTE: MAY 28, 2024@13:08 ENTRY DATE: MAY 28, 2024@13:08:21 AUTHOR: NICOLASA HALEY COSIGNER: URGENCY: STATUS: COMPLETED Advance Directive Screen MH AD: Patient does not have a completed advance directive on file at any facility, VA or outside. S/he is not interested in completing one at this time. The patient received education about Advance Directives and written notification of his/her rights. BMI>30/>24.99 High Risk: Patient declines to discuss weight management. Patient declined weight discussion. Discussed revisiting at a future visit. Homelessness/Food Insecurity Screen: In the past 2 months, have you been living in stable housing that you own, rent, or stay in as part of a household? Yes - Living in stable housing. Are you worried or concerned that in the next 2 months you may NOT have stable housing that you own, rent, or stay in as part of a household? No - Not worried about housing near future [facility] reports the following: Within the past 12 months, you worried whether your food would run out before you got money to buy more. Never true Within the past 12 months, the food you bought just didn't last and you didn't have money to get more. Never true Hepatitis C Testing: Patient declines HCV lab test. HIV Screening: Patient has been offered HIV testing and has declined. I have explained that HIV testing is recommended for all adults, even if all risk factors are absent. The patient was educated on the risk of delayed screening. Home Telehealth (CCHT) Referral: Patient declines participation in CCHT Program at this time. Influenza Immunization: Virtual/Telehealth Visit - Patient educated on the need for receiving influenza immunization either at VA or outside facility. COVID-19 Immunization: [employer] Patient received prior dose of [employer] COVID-19 vaccine. Documented: COVID-19 ([employer]), VECTOR-NR, RS-AD26, PF, 0.5 ML Historical Date Administered: Feb 20, 2022 Series: Series 1 Outside Location: Outside Healthcare Provider Information Source: FROM OTHER REGISTRY Tdap Immunization: Td/Tdap given previously - written records available The patient has previously received the Tetanus, Diphtheria, Pertussis vaccine (Tdap). Documented: TDAP Historical Date Administered: Dec 07, 2014 Outside Location: Outside Healthcare Provider Information Source: FROM OTHER REGISTRY Herpes Zoster (Shingles) Vaccine: The patient declines to receive the recommended dose of zoster (shingles) vaccine. Immunization: ZOSTER RECOMBINANT Refusal Reason: PATIENT DECISION Patient refuses all immunization(s) in the ZOSTER group Date Documented: 05/28/24 13:20 Sexual Orientation: The patient thinks of their sexual orientation as: Straight or Heterosexual Hepatitis B Serology/Immunization: The patient declines to have HBV serology done. Reason: Here to establish The patient declines to receive the recommended dose of Hepatitis B vaccine. Immunization: HEP B, UNSPECIFIED FORMULATION Refusal Reason: PATIENT DECISION Patient refuses all immunization(s) in the HepB group Comment: Here to establish Date Documented: 05/28/24 13:22 Avg Risk Colorectal Cancer Screen: AVERAGE RISK colorectal cancer screening is due based on information available to this clinical reminder CRC screen completed elsewhere and waiting for results. Results expected: Colonoscopy Comment: 08/2021 Dr. Andujar was told to repeat in 3 years Pneumococcal Conjugate Vaccine (PCV15/PCV20): Pneumococcal vaccine given previously - written records available Documented: PNEUMOCOCCAL CONJUGATE PCV15, POLYSACCHARIDE [id number] CONJUGATE, ADJUVANT, PF Historical Date Administered: Mar 23, 2022 Outside Location: Outside Healthcare Provider Information Source: FROM OTHER REGISTRY RHS Screen: RHS Screen Environmental Check Upon inquiry, the individual reports that the environment is safe to proceed. Informed Consent to Screen and Document The individual consents to proceed with screening. The individual consents to documentation of responses. PRIMARY SCREEN: In the past 12 months, how often did a current or former intimate partner (e.g., boyfriend, girlfriend, , , sexual partner): 1. Scream or curse at you Never 2. Insult or talk down to you Never 3. Threaten you with harm Never 4. Physically hurt you Never 5. Force or pressure you to have sexual contact against your will, or when you were unable to say no Never ?? The HITS tool (items 1-4 above) is [place] copyright protected by Bryant Cortez MD, and the user has full rights to use it throughout the [place] system. PRIMARY SCREEN RESULT: The Primary Screen is NEGATIVE. The individual answered never to all forms of IPV above (i.e., answered never to all 5 items) The individual accepts education and/or resources: No EDUCATION: Other: Comments: Eye Care At-Risk Screen : Patient identified to be at risk for the following eye condition(s): DIABETIC RETINOPATHY: Diabetes Diagnosis Information: Problem Diagnosis: 05/28/2024 [id number] (SNOMED CT) Type 2 diabetes mellitus Date Entered: 05/26/2024; Date Last Modified: 05/28/2024 Status: ACTIVE; Priority: UNDEFINED Prov. Narr. - Diabetes Mellitus Type 2 ([facility] [id number]) Action: No Referral Ordered: The patient declined/refused referral for Tele-Eye screening and Eye Clinic appointment. Comment: I am here to estabih haven't used my glasses in awhile /es/ NICOLASA HALEY LPN LICENSED PRACTICAL NURSE Signed: 05/28/2024 13:41 NICOLASA HALEY [place] May 28, 2024 01:08 PM PHYSICIAN MICHAEL Steiner NOTE: LOCAL TITLE: PA NOTE STANDARD TITLE: PHYSICIAN BAGGAGE HANDLING SUPERVISOR NOTE DATE OF NOTE: MAY 28, 2024@13:08 ENTRY DATE: MAY 28, 2024@13:08:30 AUTHOR: FAYE WYMAN EXP COSIGNER: URGENCY: STATUS: COMPLETED KARIN NOTE Has ADDENDA S - new patient and [place], [place] for dvt that was dx'd in er may 30 O - coop A&Ox3 NAD W-N/H/D HEENT: benign NECK: not tender; no adeno LUNGS: resp full reg unlabored; CTA b/l COR: RRR, no M ABD: EXT: oedema from DVT, 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 LABS: reviewed w/ pt A/P - 1) 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 Calf - 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 2) DM II - has had it for about 10 yrs Diabetic Neuropathy (Mild at this Point) - health care fractured - not taken any meds for long while - LABS: A1C 11.8 and FBS 244 on MAY 30 - then Rx'd Metformin and Glipizide on MAY 30 - saw Diabet Pharm D on MAY 30 see Consult Report Prior-Auth / Non-Form Drug Note Dated JAN 28 - diet, wt - foot eye care - pending a f/u appt w/ Pharm D on JUN 30 3) HTN Today - BP 142/78 4) Renal Funct Preserved - eGFR 90 in MAY 30 Creat and Lytes WNL - Re-Start Zestril, 5 MG/Day as Nephro-Protective Agent 5) Hypercholesterolemia - LDL 177 in MAY 30 - Newly Started on Crestor 6) C/V Status o/w Stable - never SC 7) Neuro Stable - never CVA/TIA RTC JUL 28 - [employer] Homelessness/Food Insecurity Screen: In the past 2 months, have you been living in stable housing that you own, rent, or stay in as part of a household? Yes - Living in stable housing. Are you worried or concerned that in the next 2 months you may NOT have stable housing that you own, rent, or stay in as part of a household? No - Not worried about housing near future The reports the following: Within the past 12 months, you worried whether your food would run out before you got money to buy more. Never true Within the past 12 months, the food you bought just didn't last and you didn't have money to get more. Never true Toxic Exposure Screening: The [place]/caregiver was asked if they believe the [place] experienced any toxic exposure(s), such as Airborne Hazards and Open Burn Pit, [place] War related exposures, Agent [place], Radiation, contaminated water at [place] or other such exposures, while serving in the [employer]. 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 The /caregiver was informed that we will continue to ask this screening question every 5 years. They can contact their provider/healthcare team if they have concerns about exposures and would like to be screened sooner. Printed information was offered and provided if desired. Depression Screening: Perform PHQ-2 A PHQ-2 screen was performed. The score was 0 which is a negative screen for depression. Over the past two weeks, how often have you been bothered by the following problems? 1. Little interest or pleasure in doing things Not at all 2. Feeling down, depressed, or hopeless Not at all MST Screening: Patient denies experiencing sexual trauma (MST). Preferred Language: What is your, or your caregiver's preferred language for healthcare? Preferred Language: [place] PTSD Screening: PC-PTSD-5 A PTSD screening test (PC-PTSD-5) was negative (score=0). IN THE PAST MONTH, have you ever had any experience that was so frightening, horrible or traumatic. For example: A serious accident or fire a physical or sexual assault or abuse An earthquake or flood A war Seeing someone be killed or seriously injured Having a loved one through homicide or suicide 1. Have you ever experienced this kind of event? NO 2. Had nightmares about the event(s) or thought about the event(s) when you did not want to? Response not required due to responses to other questions. 3. Tried hard not to think about the event(s) or went out of your way to avoid situations that reminded you of the event(s)? Response not required due to responses to other questions. 4. Been constantly on guard, watchful, or easily startled? Response not required due to responses to other questions. 5. [place] numb or detached from people, activities, or your surroundings? Response not required due to responses to other questions. 6. [place] guilty or unable to stop blaming yourself or others for the event(s) or any problems the event(s) may have caused? Response not required due to responses to other questions. Tobacco Use Screening: The patient has never smoked cigarettes. The patient has never used other types of tobacco. Alcohol Use Screen (AUDIT-C): Alcohol Screen: SCREEN FOR ALCOHOL (AUDIT-C) An alcohol screening test (AUDIT-C) was negative (score=1). 1. How often did you have a drink containing alcohol in the past year? Consider a drink to be a 12 ounce can or bottle of regular beer, 8 ounces of malt liquor, a 5 ounce glass of table wine, or a 1.5 ounce shot of liquor (like scotch, gin, or vodka). Monthly or less 2. How many drinks containing alcohol did you have on a typical day when you were drinking in the past year? One or two drinks 3. How often did you have six or more drinks on one occasion in the past year? Never HTN Assess for Elevated BP>=140/90: The patient's medication regimen was adjusted to improve blood pressure control. Comment: evelina MORALES Foot Check: A complete foot check was completed at this encounter. VISUAL INSPECTION: blister hallux left foot Includes inspection for skin breaks, deformity, erythema, trauma, pallor on elevation, dependent rubor, nail deformities, extensive callus and pitting edema. Visual exam results: Normal Comment: abnl PEDAL PULSES: Includes palpation of dorsalis and posterior tibial pulses and signs/symptoms of vascular compromise like pain, pallor, parasthesia or paralysis. Present (even if diminished) Comment: not appreciable due to swelling SENSORY CHECK: Includes 10 gram Monofilament ([place]-Pam) test of sensation. Intact (Greater than or equal to 80% of sites checked) Abnormal (Less than 80% of sites checked): Intact Comment: decreased LOW-RISK: LOW RISK INFORMATION PROVIDED: 1. Advised patient not to walk barefoot. 2. Explained the importance of daily foot checks for changes. 3. Stressed the importance of daily foot hygiene, including bathing and complete drying. Diabetes: Kidney Health Evaluation: Last eGFR: EGFR Collection DT Specimen Test Name Result Units Ref Range 05/12/2024 14:11 SERUM eGFR(CKD-EPI 2020 >90 mL/min Ref: >=60 Last uACR: No uACR found within the past year uACR (Urine Albumin-Creatinine Ratio) Quantitative urine creatinine and quantitative urine albumin lab tests were ordered. Medication Reconciliation: Outpatient: Has the patient been taking medications as documented in the EMLR? YES: The patient has been taking medications as documented in the EMLR. Essential Medication List for Review used to complete this medication reconciliation. INCLUDED IN THIS LIST: Alphabetical list of active outpatient prescriptions dispensed from this [facility] (local) and dispensed from another [place] or [facility] facility (remote) as well as inpatient orders (local, pending and active), local clinic medications, locally documented non-VA medications, and local prescriptions that have or been discontinued in the past 90 days. - All changes in medications, including all non-VA/Herbal/OTC medications were entered into CPRS. Changes: nt - If there were any medications the patient should no longer take, they were discontinued. - The patient/caregiver was instructed to update this list, discard old lists, and take this list to the next appointment, whether with a VA or non-VA provider. /toro/ FAYE WYMAN PA-C STAFF PHYSICIAN BAGGAGE HANDLING SUPERVISOR Signed: 05/28/2024 13:51 06/01/2024 ADDENDUM STATUS: COMPLETED Please reassign to [place] PACТатьяна Gonzalez. Thank you. /toro/ LEANNE BASILIO NP NURSE PRACTITIONER Signed: 06/01/2024 16:04 Receipt Acknowledged By: 06/03/2024 09:16 /toro/ DWIGHT MUNOZ ADVANCE ASSOCIATE PROFESSOR OF LITERACY * AWAITING SIGNATURE * KAYLA VAZQUEZ 06/03/2024 ADDENDUM STATUS: COMPLETED IS BOOKED FOR A FOLLOW UP APPT w/PACT 1 08/24/24 /toro/ DWIGHT MUNOZ ADVANCE ASSOCIATE PROFESSOR OF LITERACY Signed: 06/03/2024 09:16 FAYE WYMAN
--- OUTSIDE RECORDS SUMMARY | 2024-06-26 04:06 | XMS_ITS | Encounter Summary ---
Author Name [facility] Organization [facility] Address [address] [place] [address] Care Team Providers Care Correspondence Review Clerk Name Role Phone FAYE WYMAN Primary Care Provider Unavailabl e Selected Encounter This section includes the information on record at [facility] for the Encounter. 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 This section includes future appointments and future orders which are active, pending or scheduled. Future Appointments This section includes appointments that were scheduled to occur 6 months from the date of the Encounter, up to a maximum of 20 appointments. The data comes from all [place] treatment facilities. Appointment Date/Time Appointment Type Appointme nt Facility Name Jun 17, 2024 03:30 PM [facility] Jun 30, 2024 03:00 PM [facility] Jul 15, 2024 03:30 PM [facility] NONE [facility] Jul 16, 2024 08:30 AM AMBULATORY - PSYCHIATRY [facility] Aug 24, 2024 03:30 PM [facility] Oct 16, 2024 03:30 PM [facility] Active, Pending, and Scheduled Orders This section includes a listing of several types of active, pending, and scheduled orders, including clinic medications orders, diagnostic test orders, procedure orders and consult orders; where the start date of the order is 45 days before the date of the Encounter or 45 days after the date of theEncounter. The data comes from all [place] treatment facilities. Test Date/Time Test Type Test Details Facility Name May 22, 2024 11:18 AM Consult Order TELE-EYE SCREENING CONSULT/SPOP[facility] (OUTPT) Cons Test [facility] May 22, 2024 12:08 PM Consult Order MENTAL HEALTH SERVICES/SP[facility] OUTPT Cons Test [facility] May 28, 2024 12:00 AM Laboratory - Chemistry Order MICROALBUMIN CREATININE RATIO PANEL URINE (RANDOM) [facility] Jul 10, 2024 12:00 AM Laboratory - Chemistry Order CBC AND DIFF (AUTO) BLOOD (LAV-BLOOD) [facility] Jul 10, 2024 12:00 AM Laboratory - Chemistry Order PSA BLOOD (SST-SERUM) [facility] Jul 10, 2024 12:00 AM Laboratory - Chemistry Order TSH BLOOD (SST-SERUM) [facility] Jul 10, 2024 12:00 AM Laboratory - Chemistry Order VITAMIN D (25-OH) BLOOD (SST-SERUM) ONCE [facility] Jul 10, 2024 12:00 AM Laboratory - Chemistry Order URINALYSIS URINE [facility] Jul 10, 2024 12:00 AM Laboratory - Chemistry Order MICROALBUMIN CREATININE RATIO PANEL URINE (RANDOM) [facility] Jul 10, 2024 12:00 AM Laboratory - Chemistry Order HEMOGLOBIN A1C PANEL BLOOD (LAV-BLOOD) [facility] Jul 10, 2024 12:00 AM Laboratory - Chemistry Order BASIC METABOLIC PANEL (fasting) BLOOD (SST-SERUM) [facility] Jul 10, 2024 12:00 AM Laboratory - Chemistry Order LIVER FUNCTION BLOOD (SST-SERUM) [facility] Jul 10, 2024 12:00 AM Laboratory - Chemistry Order LIPID PANEL FASTING BLOOD (SST-SERUM) [facility] Jul 10, 2024 12:00 AM Laboratory - Chemistry Order URIC ACID BLOOD (SST-SERUM) [facility] Jul 10, 2024 12:00 AM Laboratory - Chemistry Order CALCIUM BLOOD ([facility]-SERUM) [facility] Lab Results: +/- 30 days of the encounter This section includes the Chemistry and Hematology Lab Results on record with [place] for the patient. Radiology Reports and Pathology Reports are provided separately, in subsequent sections. Lab Results This section contains the Chemistry/Hematology Results that were resulted 30 days before or 30 daysafter the date of the Encounter. Date/Time Source Result Type Result - Unit Interpretation Reference Range Comment May 12, 2024 02:11 PM [facility] [place] LIVER FUNCTION Specimen Type: SERUM No comment entered. Ordering Provider: LEANNE VAZ Report Released Date/Time: May 12, 2024 02:07 PM Reporting Lab: [address] [address] Performing Lab: [address] [address] PROTEIN,TOTAL 7.9 g/dL 6.0-8.3 ALBUMIN 3.9 g/dL 3.5-5.0 ALKALINE PHOSPHATASE 66 U/L 40-150 AST 17 U/L 5-34 ALT 29 U/L BILIRUBIN, TOTAL 0.5 mg/dL 0.2-1.2 May 12, 2024 02:11 PM [facility] [place] LIPID PANEL, NON FASTING Specimen Type: SERUM No comment entered. Ordering Provider: LEANNE VAZ Report Released Date/Time: May 12, 2024 02:07 PM Reporting Lab: [address] [address] Performing Lab: [address] [address] CHOLESTEROL 267 mg/dL H TRIGLYCERIDE 270 mg/dL H 0-150 LDL calculated 177 mg/dL H 0-129 CHOL/HDL 7.4 HDL CHOLESTEROL 36 mg/dL L 40-60 May 12, 2024 02:11 PM [facility] TSH Specimen Type: SERUM No comment entered. Ordering Provider: LEANNE VAZ Report Released Date/Time: May 12, 2024 02:07 PM Reporting Lab: [address] [address] Performing Lab: [facility] [address] [address] TSH 1.37 u[IU]/mL 0.35-5.00 May 12, 2024 02:11 PM [facility] HEMOGLOBIN A1C PANEL Specimen Type: BLOOD Comment: [...] May 12, 2024 02:07 PM Reporting Lab: [address] [address] Performing Lab: [address] [address] HEMOGLOBIN A1C 11.8 H 4.0-5.6 May 12, 2024 02:11 PM [facility] PSA Specimen Type: SERUM No comment entered. Ordering Provider: LEANNE VAZ Report Released Date/Time: May 12, 2024 02:07 PM Reporting Lab: [address] [address] Performing Lab: [address] [address] PSA 0.57 ng/mL 0.00-4.00 May 12, 2024 02:11 PM [facility] [place] PT & INR (COUMADIN) Specimen Type: PLASMA No comment entered. Ordering Provider: LEANNE VAZ Report Released Date/Time: May 12, 2024 02:07 PM Reporting Lab: [address] [address] Performing Lab: [address] [address] INR 1.0 PROTIME 11.6 s 10.0-13.1 May 12, 2024 02:11 PM [facility] CBC AND DIFF (AUTO) Specimen Type: BLOOD No comment entered. Ordering Provider: LEANNE VAZ Report Released Date/Time: May 12, 2024 02:07 PM Reporting Lab: [facility] [address] [address] Performing Lab: [facility] [address] [address] WBC 6.86 10*3/uL 4.50-11.00 RBC 5.28 10*6/uL [...] 10*3/uL 0.00-0.00 May 12, 2024 02:11 PM [facility] BASIC METABOLIC PANEL (non-fasting) Spe cimen Type: SERUM No comment entered. Ordering Provider: LEANNE VAZ Report Released Date/Time: May 12, 2024 02:07 PM Reporting Lab: [address] [address] Performing Lab: [address] [address] UREA NITROGEN 18 mg/dL 7-25 GLUCOSE 244 mg/dL H 65-100 SODIUM 134 mmol/L L 135-145 POTASSIUM 4.4 mmol/L 3.5-5.0 CHLORIDE 100 mmol/L 100-110 CO2 25 meq/L 20-30 CREATININE, Serum 0.96 mg/dL 0.50-1.40 eGFR(CKD-EPI 2020) >90 mL/min >60 Encounter Notes: All associated encounter notes This section contains the clinical notes associated to the Encounter. Date/Time Encounter Note(s) Provider Source Jun 09, 2024 11:44 AM PHARMACY MEDICATION MGT NOTE: LOCAL TITLE: PHARMACY ANTICOAGULATION NOTE STANDARD TITLE: PHARMACY MEDICATION MGT NOTE DATE OF NOTE: JUN 09, 2024@11:44 ENTRY DATE: JUN 09, 2024@11:44:35 AUTHOR: CHAVEZ BARRETT EXP COSIGNER: URGENCY: STATUS: COMPLETED Reason for visit: Follow up for Apixaban/Eliquis Indication: DVT treatment Start Date: 05/12/2024 Expected Duration: TBD; possibly lifelong Referring Provider: Leanne Vaz NP Patient Contact: Patient has given permission to leave anticoagulation message on answering machine or with person listed. Apixaban: Missed Doses: Yes might of missed one day Last Refill: 05/12/24 Refill Needed: YES o sent TEAMS message to PCP o PCP notified 06/08/24 by renewal service Administration Time: 07:00, 19:00 Bleeding: No Dizziness/Vision Changes/Extremity Weakness: No Med Changes: started sitagliptin, increased glipizide Alcohol: No, rarely drinks Storage of Medication: Appropriate Surgeries/Procedures: No Other: (Optional) Objective: Labs: CBC (last 90 days): CBC Collection DT Specimen Test Name Result Units Ref Range 05/12/2024 14:11 BLOOD WBC 6.86 K/cmm 4.50 - 11.00 05/12/2024 14:11 BLOOD RBC 5.28 M/cmm 4.23 - 5.66 05/12/2024 14:11 BLOOD HGB 15.8 g/dL 12.8 - 17 05/12/2024 14:11 BLOOD HCT 45.8 % 39.2 - 50.4 05/12/2024 14:11 BLOOD MCV 86.7 fl 82 - 99 05/12/2024 14:11 BLOOD MCHC 34.5 g/dL 30.8 - 35.1 05/12/2024 14:11 BLOOD PLT 270 K/cmm 140 - 360 05/12/2024 14:11 BLOOD RDW-CV 12.0 % 12.0 - 16.0 05/12/2024 14:11 BLOOD NEUT % 69.8 % 43.7 - 75.8 05/12/2024 14:11 BLOOD LYMPH % 14.9 % 14.0 - 42.3 05/12/2024 14:11 BLOOD MONO % 10.8 % 5.1 - 13.7 05/12/2024 14:11 BLOOD EOS % 3.4 % 0.4 - 6.8 05/12/2024 14:11 BLOOD BASO % 0.7 % 0.1 - 2.0 SrCr (last 6 weeks): CREATININE-EGFR 05/12/24 14:11 0.96 CRCL IBW: CrCl(est): 125.4 mL/min (Creat:0.96 05/12/24) CRCL ACT: 100 mL/min CRCL ADJ: 125.4 mL/min (05/12/24) LFTs: WNL 05/12/24 Vitals: Weight (BMI): 297 lb [134.72 kg] (05/28/2024 13:07) Height: 73 in [185.4 cm] (05/12/2024 13:39) BMI: 39.3 Active Outpatient Medications (including Supplies): ACCU-CHEK GUIDE (GLUCOSE) TEST STRIP USE 1 STRIP TO TEST ACTIVE (S) BLOOD SUGARS ONCE DAILY Indication: DIABETES ACCU-CHEK GUIDE ME (GLUCOSE) METER USE METER TO TEST BLOOD ACTIVE SUGARS TWO TIMES A WEEK Indication: DIABETES APIXABAN 5MG TAB TAKE TWO TABLETS BY MOUTH EVERY 12 HOURS ACTIVE FOR 7 DAYS, THEN TAKE ONE TABLET EVERY 12 HOURS Indication: DVT GLIPIZIDE 10MG TAB TAKE ONE TABLET BY MOUTH TWICE DAILY ACTIVE Indication: FOR TYPE 2 DIABETES MELLITUS LANCET,SOFTCLIX USE 1 LANCET DIRECTED TWO TIMES A WEEK ACTIVE TO TEST BLOOD SUGAR Indication: DIABETES LISINOPRIL 5MG TAB TAKE ONE TABLET BY MOUTH ONCE DAILY TO ACTIVE CONTROL BLOOD PRESSURE Indication: FOR HIGH BLOOD PRESSURE METFORMIN HCL 500MG 24HR SA TAB TAKE TWO TABLETS BY MOUTH ACTIVE TWICE DAILY Indication: FOR TYPE 2 DIABETES MELLITUS ROSUVASTATIN CA 40MG TAB TAKE ONE TABLET BY MOUTH ONCE ACTIVE DAILY FOR CHOLESTEROL Indication: FOR HIGH CHOLESTEROL SITAGLIPTIN (EQV-ZITUVIO) 100MG TAB TAKE ONE TABLET BY ACTIVE MOUTH ONCE DAILY Indication: DIABETES Interacting Meds: none Assessment/Plan: - Pt taking medication appropriately - continue apixaban 5mg twice daily Time Spent: 15 min Next Appt: transition to passive monitoring Next PCP Appt: 08/24/24 EDUCATION Provided with verbal instructions: Yes Provided with written instructions: No Barriers to learning: No Readiness to learn: Yes Specific dose directions reviewed: Yes Opportunity for questions/discussion: Yes Reports understanding of instructions: Yes Further learning needs: No /toro/ Chavez Barrett PharmD Clinical Peoplesoft Crm Developer Signed: 06/09/2024 12:01 Receipt Acknowledged By: 06/09/2024 12:12 /toro/ HELEN ALBA CPHT Clinical Towboat Captain CHAVEZ BARRETT [facility] ([id number]
--- OUTSIDE RECORDS SUMMARY | 2024-06-26 04:06 | XMS_ITS | Encounter Summary ---
Author Name [facility] [place] [facility] [place] [facility] [place] Address [address] [place] [address] Care Team Providers Care Senior Rd Engineer Name Role Phone FAYE WYMAN Primary Care Provider Unavailabl e Selected Encounter This section includes the information on record at [place] for the Encounter. Date/Time Encounter Type Encounter Description Reason Provider Source May 22, 2024 10:30 AM MTMS BY JARRED MONTIEL 15 MIN CLINICAL PHARMACY ICD-10-CM E11.9 Type 2 diabetes mellitus without complications ALBERTINA GAYLE Brianna Encounter Template Text not used by [place] Assessments - Encounter Diagnoses This section includes the primary and secondary diagnoses documented for the Encounter. Date/Time Primary/Secondary Diagnosis Diagnosis Name Provider Source May 22, 2024 11:15 AM PRIMARY Type 2 diabetes mellitus without complications ALBERTINA GAYLE Plan of Treatment: Future Appointments (+ 6 months) and Future Tests (+/- 45 days) The Plan of Treatment section includes future care activities for the patient from all [place] treatmentfacilities. This section includes future appointments and future orders which are active, pending or scheduled. Future Appointments This section includes appointments that were scheduled to occur 6 months from the date of the Encounter, up to a maximum of 20 appointments. The data comes from all [place] treatment facilities. Appointment Date/Time Appointment Type Appointme nt Facility Name May 27, 2024 01:00 PM AMBULATORY - PSYCHIATRY [facility] May 28, 2024 01:00 PM [facility]ICINE [facility] Jun 17, 2024 03:30 PM [facility] - MEDICINE [facility] Jun 30, 2024 03:00 PM [facility] - MEDICINE [facility] Jul 15, 2024 03:30 PM AMBULATORY - NONE [facility] Jul 16, 2024 08:30 AM AMBULATORY - PSYCHIATRY [facility] Aug 24, 2024 03:30 PM [facility]ICINE [facility] Oct 16, 2024 03:30 PM [facility] Active, Pending, and Scheduled Orders This section includes a listing of several types of active, pending, and scheduled orders, including clinic medications orders, diagnostic test orders, procedure orders and consult orders; where the start date of the order is 45 days before the date of the Encounter or 45 days after the date of theEncounter. The data comes from all [place] treatment facilities. 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 Radiology Reports and Pathology Reports are provided separately, in subsequent sections. Lab Results This section contains the Chemistry/Hematology Results that were resulted 30 days before or 30 daysafter the date of the Encounter. Date/Time Source Result Type Result - Unit Interpretation Reference Range Comment May 12, 2024 02:11 PM [facility] LIVER FUNCTION Specimen Type: SERUM No comment entered. Ordering Provider: LEANNE BASILIO Report Released Date/Time: May 12, 2024 02:07 PM Reporting Lab: [address] [address] Performing Lab: [address] [address] PROTEIN,TOTAL 7.9 g/dL 6.0-8.3 ALBUMIN 3.9 g/dL 3.5-5.0 ALKALINE PHOSPHATASE 66 U/L 40-150 AST 17 U/L 5-34 ALT 29 U/L BILIRUBIN, TOTAL 0.5 mg/dL 0.2-1.2 May 12, 2024 02:11 PM [facility] LIPID PANEL, NON FASTING Specimen Type: SERUM No comment entered. Ordering Provider: LEANNE BASILIO Report Released Date/Time: May 12, 2024 02:07 PM Reporting Lab: [address] [address] Performing Lab: [address] [address] CHOLESTEROL 267 mg/dL H TRIGLYCERIDE 270 mg/dL H 0-150 LDL calculated 177 mg/dL H 0-129 CHOL/HDL 7.4 HDL CHOLESTEROL 36 mg/dL L 40-60 May 12, 2024 02:11 PM [facility] TSH Specimen Type: SERUM No comment entered. Ordering Provider: LEANNE BASILIO Report Released Date/Time: May 12, 2024 02:07 PM Reporting Lab: [address] [address] Performing Lab: [address] [address] TSH 1.37 u[IU]/mL 0.35-5.00 May 12, 2024 02:11 PM [facility] HEMOGLOBIN A1C PANEL Specimen Type: BLOOD Comment: [...] May 12, 2024 02:07 PM Reporting Lab: [address] [address] Performing Lab: [address] [address] HEMOGLOBIN A1C 11.8 H 4.0-5.6 May 12, 2024 02:11 PM [facility] PSA Specimen Type: SERUM No comment entered. Ordering Provider: LEANNE BASILIO Report Released Date/Time: May 12, 2024 02:07 PM Reporting Lab: [address] [address] [facility]: [facility] [address] [address] PSA 0.57 ng/mL 0.00-4.00 May 12, 2024 02:11 PM [facility] PT & INR (COU[facility]ADIN) Specimen Type: PLASMA No comment entered. Ordering Provider: LEANNE BASILIO Report Released Date/Time: May 12, 2024 02:07 PM Reporting Lab: [facility] [address] [address] Performing Lab: [facility] [address] [address] INR 1.0 PROTIME 11.6 s 10.0-13.1 May 12, 2024 02:11 PM [facility] CBC AND DIFF (AUTO) Specimen Type: BLOOD No comment entered. Ordering Provider: LEANNE BASILIO Report Released Date/Time: May 12, 2024 02:07 PM Reporting Lab: [facility] [address] [address] Performing Lab: [facility] [address] [address] WBC 6.86 10*3/uL 4.50-11.00 RBC 5.28 10*6/uL [...] 10*3/uL 0.00-0.00 May 12, 2024 02:11 PM [facility] BASIC METABOLIC PANEL (non-fasting) Spe cimen Type: SERUM No comment entered. Ordering Provider: LEANNE BASILIO Report Released Date/Time: May 12, 2024 02:07 PM Reporting Lab: [address] [address] Performing Lab: [address] [address] UREA NITROGEN 18 mg/dL 7-25 GLUCOSE 244 mg/dL H 65-100 SODIUM 134 mmol/L L 135-145 POTASSIUM 4.4 mmol/L 3.5-5.0 CHLORIDE 100 mmol/L 100-110 CO2 25 meq/L 20-30 CREATININE, Serum 0.96 mg/dL 0.50-1.40 eGFR(CKD-EPI 2020) >90 mL/min >60 Encounter Notes: All associated encounter notes This section contains the clinical notes associated to the Encounter. Date/Time Encounter Note(s) Provider Source May 22, 2024 10:31 AM PHARMACY OUTPATIEN T NOTE: LOCAL TITLE: PHARMACY CLINIC NOTE STANDARD TITLE: PHARMACY OUTPATIENT NOTE DATE OF NOTE: MAY 22, 2024@10:31 ENTRY DATE: MAY 22, 2024@10:31:48 AUTHOR: ALBERTINA GAYLE EXP COSIGNER: URGENCY: STATUS: COMPLETED Known Allergies: Patient has answered NKA AUBRIE SINGH presented for initial consult for diabetes management treatment. Subjective: [place] has not seen provider in ~2 years. Was seen in ER for DVT; was started on metformin 1000mg twice daily. Ran out of this; occassional/ intermittent diarrhea. Has been on SA in the past without issues. Prior to this, missed x 1 year. Has remained on glipizide as he had excess supply following a visit to [facility] in the past; likely . 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 Denies s/sx DKA. Reports thoughts of suicide in the past 3 months; tried to hang himself 12/2022. Objective: Diabetes Medication Regimen: metformin 1000mg BID glipzide 7.5mg BID (had leftover RX) Previous DM Medications: tirzepatide (Mounjaro; ran out of insurance) empagliflozin ( we don't get along ; suicidal) Adherence: denies missed doses of above medications currently; however, likely and prior to this, ran out of all other medications for > 1 year. Most recent A1c: HEMOGLOBIN A1C TREND Collection DT Spec HGBA1c 05/12/2024 14:11 BLOOD 11.8 H LIPID PANEL TREND Collection DT Spec CHOL HDL CHO/HDL LDL-c TRIG 05/12/2024 14:11 SERUM 267 H 36 L 7.4 177 H 270 H CREATININE-EGFR 05/12/24 14:11 0.96 Patient self-monitoring of blood glucose: Health-[facility]: At home : X Patient self-monitors blood glucose 0x day and reports the following (mg/dl): 05/22/24 Has old glucometer/supplies. Not SMBG regularly. Patient eats on avg. 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 Priority today was focused on + suicide screen. Support provided and coordinated screening and evaluation by provider. Discussed diabetes following this given elevation in A1c. Educated pt on A1c and BG targets, long-term complications of uncontrolled diabetes (i.e. damage to heart, eyes, kidneys, nerves, etc), components of healthy diabetic diet (i.e. consume 3 meals/day, do not skip or delay meals, basics of CHO counting, healthy snack choices, etc). 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 Will change metformin IR to SA; increase glipizide; and initiate sitagliptin. Note A1c >11%. Risks associated with this discussed. Will place PA- F for semaglutide after optometry evaluation; replace sitagliptin with this at future f/u if approved. Diabetes: - CHANGE metformin IR to SA 1000mg BID - INCREASE glipizide 10mg BID - INITIATE sitagliptin 100mg daily - SMBG 1x/day; will enter PA-F consult - Monitor for s/sx hypoglycemia and contact clinic if BG consistently < 70mg/dL - Healthy dietary lifestyle modifications encouraged - Repeat A1c: August 2024 Clinic's Next Scheduled Follow-up: 4 weeks HTN: at goal; no BP medications. Defer to PCP. ASCVD: Resume rosuvastatin 40mg daily; on this previously. Microalb: will order w/ next labs History of Preventive Care: Most recent visit to manager utilization review: none; has a blister. encouraged sick call today for evaluation. seeing pcp 05/28. counseled at length. pt will consider sick call after MH visit. Most recent visit to optometry: will place consult Time Spent: 50 minutes Suicide Screen: C-SSRS Screening Hinds-Suicide Severity Rating Scale (C-SSRS Screener) Suicide preparations or attempt made within past 3 months; this POSITIVE answer requires same-day completion of a Suicide Risk Evaluation-Comprehensive 1. Over the past month, have you wished you were or wished you could go to sleep and not wake up? No 2. Over the past month, have you had any actual thoughts of killing yourself? No 3. Over the past month, have you been thinking about how you might do this? Response not required due to responses to other questions. 4. Over the past month, have you had these thoughts and had some intention of acting on them? Response not required due to responses to other questions. 5. Over the past month, have you started to work out or worked out the details of how to kill yourself? Response not required due to responses to other questions. 6. If yes, at any time in the past month did you intend to carry out this plan? Response not required due to responses to other questions. 7. In your lifetime, have you ever done anything, started to do anything, or prepared to do anything to end your life (for example, collected pills, obtained a gun, gave away valuables, went to the roof but didn't jump)? Yes 8. If YES, was this within the past 3 months? Yes PBM PharmD Pharmacotherapy Rem V12: PHARMACIST INTERVENTIONS: TYPE 2 DIABETES MELLITUS Medication Intervention(s) Initiate new medication Medication reconciliation (changes to active VA and non-VA medication lists to reconcile differences) Changes to medication lists made Update dose, frequency, duration and/or dosage form of medication Add or renew medication /es/ Albertina Gayle, PharmD Clinical Pharmacy Practitioner Signed: 05/22/2024 11:15 ALBERTINA GAYLE
--- OUTSIDE RECORDS SUMMARY | 2024-06-26 04:06 | XMS_ITS | Encounter Summary ---
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
--- OUTSIDE RECORDS SUMMARY | 2024-06-26 04:06 | XMS_ITS | Encounter Summary ---
Author Name [facility] [place] [facility] [place] Address [address] [place] [address] Care Team Providers Care School Psychometrist Name Role Phone FAYE WYMAN Primary Care Provider Unavailabl e Selected Encounter This section includes the information on record at [place] for the Encounter. Date/Time Encounter Type Encounter Description Reason Provider Source May 22, 2024 11:00 AM PSYTX W PT 30 MINUTES [facility] - IND ICD-10-CM F43.9 Reaction to severe stress, unspecified JOYCELYN BRADLEY Brianna Encounter Template Text not used by [place] Assessments - Encounter Diagnoses This section includes the primary and secondary diagnoses documented for the Encounter. Date/Time Primary/Secondary Diagnosis Diagnosis Name Provider Source May 22, 2024 11:48 AM PRIMARY Reaction to severe stress, unspecified JOYCELYN BRADLEY FE Plan of Treatment: Future Appointments (+ 6 months) and Future Tests (+/- 45 days) The Plan of Treatment section includes future care activities for the patient from all [place] treatmentfacilities. This section includes future appointments and future orders which are active, pending or scheduled. Future Appointments This section includes appointments that were scheduled to occur 6 months from the date of the Encounter, up to a maximum of 20 appointments. The data comes from all [place] treatment facilities. Appointment Date/Time Appointment Type Appointme nt Facility Name May 27, 2024 01:00 PM AMBULATORY - PSYCHIATRY [facility] May 28, 2024 01:00 PM [facility]ICINE [facility] Jun 17, 2024 03:30 PM [facility] Jun 30, 2024 03:00 PM [facility] - MEDICINE [facility] Jul 15, 2024 03:30 PM AMBULATORY - NONE [facility] Jul 16, 2024 08:30 AM AMBULATORY - PSYCHIATRY [facility] Aug 24, 2024 03:30 PM [facility] - MEDICINE [facility] Oct 16, 2024 03:30 PM [facility] MEDICINE [facility] Active, Pending, and Scheduled Orders This section includes a listing of several types of active, pending, and scheduled orders, including clinic medications orders, diagnostic test orders, procedure orders and consult orders; where the start date of the order is 45 days before the date of the Encounter or 45 days after the date of theEncounter. The data comes from all [place] treatment facilities. Test Date/Time Test Type Test Details Facility Name May 22, 2024 11:18 AM Consult Order TELE-EYE SCREENING CONSULT/[facility] (OUTPT) Cons Adoption Worker[facility] May 22, 2024 12:08 PM Consult Order MENTAL HEALTH SERVICES/[facility] OUTPT Cons Adoption Worker[facility] Choice [facility] May 28, 2024 12:00 AM Laboratory - Chemistry Order MICROALBUMIN CREATININE RATIO PANEL URINE (RANDOM) [facility] Lab Results: +/- 30 days of the encounter This section includes the Chemistry and Hematology Lab Results on record with [place] for the patient. Radiology Reports and Pathology Reports are provided separately, in subsequent sections. Lab Results This section contains the Chemistry/Hematology Results that were resulted 30 days before or 30 daysafter the date of the Encounter. Date/Time Source Result Type Result - Unit Interpretation Reference Range Comment May 12, 2024 02:11 PM [facility] LIVER FUNCTION Specimen Type: SERUM No comment entered. Ordering Provider: LEANNE BASILIO Report Released Date/Time: May 12, 2024 02:07 PM Reporting Lab: [address] [address] Performing Lab: [address] [address] PROTEIN,TOTAL 7.9 g/dL 6.0-8.3 ALBUMIN 3.9 g/dL 3.5-5.0 ALKALINE PHOSPHATASE 66 U/L 40-150 AST 17 U/L 5-34 ALT 29 U/L BILIRUBIN, TOTAL 0.5 mg/dL 0.2-1.2 May 12, 2024 02:11 PM [facility] LIPID PANEL, NON FASTING Specimen Type: SERUM No comment entered. Ordering Provider: LEANNE BASILIO Report Released Date/Time: May 12, 2024 02:07 PM Reporting Lab: [address] [address] Performing Lab: [address] [address] CHOLESTEROL 267 mg/dL H TRIGLYCERIDE 270 mg/dL H 0-150 LDL calculated 177 mg/dL H 0-129 CHOL/HDL 7.4 HDL CHOLESTEROL 36 mg/dL L 40-60 May 12, 2024 02:11 PM [facility] TSH Specimen Type: SERUM No comment entered. Ordering Provider: LEANNE BASILIO Report Released Date/Time: May 12, 2024 02:07 PM Reporting Lab: [address] [address] Performing Lab: [address] [address] TSH 1.37 u[IU]/mL 0.35-5.00 May 12, 2024 02:11 PM [facility] HEMOGLOBIN A1C PANEL Specimen Type: BLOOD Comment: [...] May 12, 2024 02:07 PM Reporting Lab: [address] [address] Performing Lab: [address] [address] HEMOGLOBIN A1C 11.8 H 4.0-5.6 May 12, 2024 02:11 PM [facility] PSA Specimen Type: SERUM No comment entered. Ordering Provider: LEANNE BASILIO Report Released Date/Time: May 12, 2024 02:07 PM Reporting Lab: [facility] [address] [facility]: [facility] [address] [address] PSA 0.57 ng/mL 0.00-4.00 May 12, 2024 02:11 PM [facility] PT & INR (COU[facility]ADIN) Specimen Type: PLASMA No comment entered. Ordering Provider: LEANNE BASILIO Report Released Date/Time: May 12, 2024 02:07 PM Reporting Lab: [facility] [address] [address] Performing Lab: [address] [address] INR 1.0 PROTIME 11.6 s 10.0-13.1 May 12, 2024 02:11 PM [facility] CBC AND DIFF (AUTO) Specimen Type: BLOOD No comment entered. Ordering Provider: LEANNE BASILIO Report Released Date/Time: May 12, 2024 02:07 PM Reporting Lab: [facility] [address] [address] Performing Lab: [facility] [address] [address] WBC 6.86 10*3/uL 4.50-11.00 RBC 5.28 10*6/uL [...] 10*3/uL 0.00-0.00 May 12, 2024 02:11 PM [facility] BASIC METABOLIC PANEL (non-fasting) Spe cimen Type: SERUM No comment entered. Ordering Provider: LEANNE BASILIO Report Released Date/Time: May 12, 2024 02:07 PM Reporting Lab: [facility] [address] [facility] [address] Performing Lab: [address] [address] UREA NITROGEN 18 mg/dL 7-25 GLUCOSE 244 mg/dL H 65-100 SODIUM 134 mmol/L L 135-145 POTASSIUM 4.4 mmol/L 3.5-5.0 CHLORIDE 100 mmol/L 100-110 CO2 25 meq/L 20-30 CREATININE, Serum 0.96 mg/dL 0.50-1.40 eGFR(CKD-EPI 2020) >90 mL/min >60 Encounter Notes: All associated encounter notes This section contains the clinical notes associated to the Encounter. Date/Time Encounter Note(s) Provider Source May 22, 2024 11:24 AM SUICIDE PREVENTION RISK ASSESSMENT SCREENING NOTE: LOCAL TITLE: SUICIDE RISK EVALUATION - COMPREHENSIVE STANDARD TITLE: SUICIDE PREVENTION RISK ASSESSMENT SCREENING NOT DATE OF NOTE: MAY 22, 2024@11:24 ENTRY DATE: MAY 22, 2024@11:25:02 AUTHOR: JOYCELYN BRADLEY EXP COSIGNER: FELIZ AGUIRRE URGENCY: STATUS: COMPLETED Comprehensive Suicide Risk Evaluation - This is a new suicide risk evaluation. Suicidal Ideation The most recent thoughts of engaging in suicide-related behavior were more than 91 days ago. Passing thoughs of The [place] did not have suicidal intent at the time of the most recent ideation. The did not have a suicide plan at the time of the most recent ideation. The [place] does not have access to lethal means (firearms) The does not have access to other lethal means. Suicide Behavior The [place] has made the following number of prior suicide attempts. Number of prior attempts: one Life falling apart, out of work, marriage failing Date of most recent event: December 2022 Date is approximate A suicide behavior and overdose report has already been documented for the most recent attempt. The most recent suicide attempt was the most lethal or only suicide attempt. The did not report any prior preparatory behaviors that have not been previously documented. Warning Signs The following warning signs are currently present for the [place]: Anxiety Hopelessness Additional past warning signs include: Risk Factors History of suicidal behavior(s) Comment: Noted above Recent psychosocial stressors Please Describe: two blood clots in my life, killed 's dad Losses Please Describe: lost business and marriage Medical conditions and health-related problems Please Describe: blood clots Preexisting risk factors Please Describe: Developmental trauma Protective Factors and Reasons for Living ----- Access to and engagement with health care Reports motivation for medical treatment Access to and engagement with mental health care Reports motivation for mental health treatment Has meaningful family relationships Has a significant other Hope for the future Strong desire to live Clinical Impressions: The clinical impression of acute risk is Intermediate ACUTE Risk. As evidenced by: Notes a desire to live and has no intent or plan The clinical impression of chronic risk is Low CHRONIC Risk. As evidenced by: strong desire to live noted above Suicide Risk Mitigation Plan: This treatment and care plan was developed in collaboration with the [place]. Risk Mitigation Plan: Strategies for Managing Risk in OUTPATIENT setting Suicide Ship Pilot was not alerted for consideration of a Patient Record Flag Category I High Risk for Suicide. Address medical conditions Discuss with ways to increase a sense of purpose and meaning Re-evaluation: Due to the dynamic nature of some warning signs, risk and protective factors, suicide risk should be routinely re-evaluated. These risk management strategies were chosen to address 's current presentation and feasible treatment options within the system of care. This plan should be re-evaluated over time. /toro/ JOYCELYN BRADLEY WHARFINGER CHIEF Signed: 05/22/2024 11:48 /toro/ RAS CARL Color Checker Mental Health Cosigned: 05/22/2024 11:50 JOYCELYN BRADLEY
--- OUTSIDE RECORDS SUMMARY | 2024-06-26 04:06 | XMS_ITS | Clinical Summary ---
Author Organization [facility] Facility Address [address] [address] Care Team Providers Care Right Of Way Appraiser Name Role Phone Unavailable Primary Care Provider Unavailabl e Social History Tobacco Use Types Packs/Day Years Used Date Smoking Tobacco: Never Assessed Sex and Gender Information Value Date Recorded Sex Assigned at Not on file Legal Sex Male 11:35 AM EDT Gender Identity Not on file Sexual Orientation Not on file Plan of Treatment Health Maintenance Due Date Last Done Comments Hepatitis B Vaccine (1 of 3 - 19+ 3-dose series) 1992 Colorectal Cancer Screening: Annual FOBT 2022 Colorectal Cancer Screening: Colonoscopy 2022 Colorectal Cancer Screening: Sigmoidoscopy 2022 Influenza Vaccine (#1) 2024 Pneumococcal Vaccine: Pediat rics (0 to 5 Years) and At-Risk Patients (6 to 64 Years) Aged Out No longer eligible b ased on patient's age to complete this topic Insurance [facility] [place] [id number] [facility]
--- OUTSIDE RECORDS SUMMARY | 2024-06-26 04:06 | XMS_ITS | Encounter Summary ---
Author Name [facility] [place] Organization [facility] [place] [place] Address [address] [place] [address] Care Team Providers Care Heel Emery Buffer Name Role Phone FAYE WYMAN Primary Care Provider Unavailabl e Selected Encounter This section includes the information on record at [place] for the Encounter. Date/Time Encounter Type Encounter Description Reason Pro vider Source May 29, 2024 03:27 PM Outpatient Encounter COMMUNITY CARE CONSULT IHE Encounter Template Text not used by [place] Plan of Treatment: Future Appointments (+ 6 months) and Future Tests (+/- 45 days) The Plan of Treatment section includes future care activities for the patient from all [place] treatmentfacilities. This section includes future appointments and future orders which are active, pending or scheduled. Future Appointments This section includes appointments that were scheduled to occur 6 months from the date of the Encounter, up to a maximum of 20 appointments. The data comes from all [place] treatment facilities. Appointment Date/Time Appointment Type Appointme nt Facility Name Jun 17, 2024 03:30 PM [facility]BULATORY [facility]ICINE [facility] Jun 30, 2024 03:00 PM AMBULATORY - MEDICINE [facility] Jul 15, 2024 03:30 PM [facility] Jul 16, 2024 08:30 AM AMBULATORY - PSYCHIATRY [facility] Aug 24, 2024 03:30 PM [facility] Oct 16, 2024 03:30 PM AM[facility]ATORY - MEDICINE [facility] Active, Pending, and Scheduled Orders This section includes a listing of several types of active, pending, and scheduled orders, including clinic medications orders, diagnostic test orders, procedure orders and consult orders; where the start date of the order is 45 days before the date of the Encounter or 45 days after the date of theEncounter. The data comes from all [place] treatment facilities. Test Date/Time Test Type Test Details Facility Name May 22, 2024 11:18 AM Consult Order TELE-EYE SCREENING CONSULT/SP[facility] (OUTPT) Cons [facility]tery [facility] May 22, 2024 12:08 PM Consult Order MENTAL HEALTH SERVICES/[facility] OUTPT Cons [facility]tery Sales Clerk[facility] Choice [facility] May 28, 2024 12:00 AM Laboratory - Chemistry Order MICROALBUMIN CREATININE RATIO PANEL URINE (RANDOM) [facility] Jul 10, 2024 12:00 AM Laboratory - Chemistry Order CBC AND DIFF (AUTO) BLOOD (LAV-BLOOD) [facility] Jul 10, 2024 12:00 AM Laboratory - Chemistry Order PSA BLOOD (SST-SERUM) [facility] Jul 10, 2024 12:00 AM Laboratory - Chemistry Order TSH BLOOD (SST-SERUM) [facility] Jul 10, 2024 12:00 AM Laboratory - Chemistry Order VITAMIN D (25-OH) BLOOD (SST-SERUM) [facility] Jul 10, 2024 12:00 AM Laboratory - Chemistry Order URINALYSIS URINE [facility] Jul 10, 2024 12:00 AM Laboratory - Chemistry Order MICROALBUMIN CREATININE RATIO PANEL URINE (RANDOM) [facility] Jul 10, 2024 12:00 AM Laboratory - Chemistry Order HEMOGLOBIN A1C PANEL BLOOD (LAV-BLOOD) [facility] Jul 10, 2024 12:00 AM Laboratory - Chemistry Order BASIC METABOLIC PANEL (fasting) BLOOD (SST-SERUM) [facility] Jul 10, 2024 12:00 AM Laboratory - Chemistry Order LIVER FUNCTION BLOOD (SST-SERUM) [facility] Jul 10, 2024 12:00 AM Laboratory - Chemistry Order LIPID PANEL FASTING BLOOD (SST-SERUM) [facility] Jul 10, 2024 12:00 AM Laboratory - Chemistry Order URIC ACID BLOOD (SST-SERUM) [facility] Jul 10, 2024 12:00 AM Laboratory - Chemistry Order CALCIUM BLOOD (SST-SERUM) [facility] Lab Results: +/- 30 days of the encounter This section includes the Chemistry and Hematology Lab Results on record with [place] for the patient. Radiology Reports and Pathology Reports are provided separately, in subsequent sections. Lab Results This section contains the Chemistry/Hematology Results that were resulted 30 days before or 30 daysafter the date of the Encounter. Date/Time Source Result Type Result - Unit Interpretation Reference Range Comment May 12, 2024 02:11 PM [facility] LIVER FUNCTION Specimen Type: SERUM No comment entered. Ordering Provider: LEANNE BASILIO Report Released Date/Time: May 12, 2024 02:07 PM Reporting Lab: [address] [address] Performing Lab: [address] [phone] PROTEIN,TOTAL 7.9 g/dL 6.0-8.3 ALBUMIN 3.9 g/dL 3.5-5.0 ALKALINE PHOSPHATASE 66 U/L 40-150 AST 17 U/L 5-34 ALT 29 U/L BILIRUBIN, TOTAL 0.5 mg/dL 0.2-1.2 May 12, 2024 02:11 PM [facility] LIPID PANEL, NON FASTING Specimen Type: SERUM No comment entered. Ordering Provider: LEANNE BASILIO Report Released Date/Time: May 12, 2024 02:07 PM Reporting Lab: [address] [address] Performing Lab: [address] [address] CHOLESTEROL 267 mg/dL H TRIGLYCERIDE 270 mg/dL H 0-150 LDL calculated 177 mg/dL H 0-129 CHOL/HDL 7.4 HDL CHOLESTEROL 36 mg/dL L 40-60 May 12, 2024 02:11 PM [facility] TSH Specimen Type: SERUM No comment entered. Ordering Provider: LEANNE BASILIO Report Released Date/Time: May 12, 2024 02:07 PM Reporting Lab: [address] [address] Performing Lab: [address] [address] TSH 1.37 u[IU]/mL 0.35-5.00 May 12, 2024 02:11 PM [facility] HEMOGLOBIN A1C PANEL Specimen Type: BLOOD Comment: [...] May 12, 2024 02:07 PM Reporting [facility]: [facility] [address] [address] Performing Lab: [address] [address] HEMOGLOBIN A1C 11.8 H 4.0-5.6 May 12, 2024 02:11 PM [facility] PSA Specimen Type: SERUM No comment entered. Ordering Provider: LEANNE BASILIO Report Released Date/Time: May 12, 2024 02:07 PM Reporting [facility]: [facility] [address] [address] Performing Lab: [address] [address] PSA 0.57 ng/mL 0.00-4.00 May 12, 2024 02:11 PM [facility] PT & INR (COUMADIN) Specimen Type: PLASMA No comment entered. Ordering Provider: LEANNE BASILIO Report Released Date/Time: May 12, 2024 02:07 PM Reporting [facility]: [facility] [address] [address] Performing Lab: [address] [address] INR 1.0 PROTIME 11.6 s 10.0-13.1 May 12, 2024 02:11 PM [facility] CBC AND DIFF (AUTO) Specimen Type: BLOOD No comment entered. Ordering Provider: LEANNE BASILIO Report Released Date/Time: May 12, 2024 02:07 PM Reporting [facility]: [facility] [address] [address] Performing Lab: [place] [phone] WBC 6.86 10*3/uL 4.50-11.00 RBC 5.28 10*6/uL [...] 10*3/uL 0.00-0.00 May 12, 2024 02:11 PM [facility] BASIC METABOLIC PANEL (non-fasting) Spe cimen Type: SERUM No comment entered. Ordering Provider: LEANNE BASILIO Report Released Date/Time: May 12, 2024 02:07 PM Reporting Lab: [facility] [address] [facility] [address] Performing Lab: [address] [address] UREA NITROGEN 18 mg/dL 7-25 GLUCOSE 244 mg/dL H 65-100 SODIUM 134 mmol/L L 135-145 POTASSIUM 4.4 mmol/L 3.5-5.0 CHLORIDE 100 mmol/L 100-110 CO2 25 meq/L 20-30 CREATININE, Serum 0.96 mg/dL 0.50-1.40 eGFR(CKD-EPI 2020) >90 mL/min >60 Encounter Notes: All associated encounter notes This section contains the clinical notes associated to the Encounter. Date/Time Encounter Note(s) Provider Source May 29, 2024 03:27 PM NONVA NOTE: [facility] TITLE: [facility] PRESENTING CARE COORD PLAN STANDARD TITLE: NONVA NOTE DATE OF NOTE: MAY 29, 2024@15:27 ENTRY DATE: MAY 29, 2024@15:27:23 AUTHOR: DIANE PALOMO EXP COSIGNER: URGENCY: STATUS: COMPLETED Emergency Notification Intake Date Presenting to the Facility: Apr Method of Contact: Notified from ECR worklist Notification ID: [id number] [facility] Referral #: [facility] [place] [facility]: Hospital: [facility] Address: City: [place] State: [place] Zip Code: Phone : Community Facility Point of Contact: Name: Phone: Chief complaint: LEFT LEG BLOOD CLOT Primary Diagnosis: Disposition Discharged Date of discharge: Apr Discharge to Comment: ER Only /toro/ DIANE SALOMON Signed: 05/29/2024 15:28 Receipt Acknowledged By: * AWAITING SIGNATURE * DUKE NORIEGA * AWAITING SIGNATURE * FLIP HOBBS * AWAITING SIGNATURE * MINNA TAVERAS * AWAITING SIGNATURE * EDIN MOREAU DAWN MARIE HASTINGS
--- OUTSIDE RECORDS SUMMARY | 2024-06-26 04:06 | XMS_ITS | Encounter Summary ---
Author Name [facility] [place] Organization [facility] [place] Address [address] [place] [address] Care Team Providers Care Communications Coordinator Name Role Phone FAYE WYMAN Primary Care Provider Unavailabl e Selected Encounter This section includes the information on record at [place] for the Encounter. Date/Time Encounter Type Encounter Description Reason Provider Source Jun 17, 2024 03:30 PM OFFICE O/P [facility] 30 MIN PODIATRY ICD-10-CM L60.3 Nail dystrophy KAMALJIT HORN Brianna Encounter Template Text not used by [place] Assessments - Encounter Diagnoses This section includes the primary and secondary diagnoses documented for the Encounter. 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 This section includes future appointments and future orders which are active, pending or scheduled. Future Appointments This section includes appointments that were scheduled to occur 6 months from the date of the Encounter, up to a maximum of 20 appointments. The data comes from all [facility]. Appointment Date/Time Appointment Type Appointme nt Facility Name Jun 30, 2024 03:00 PM AM[facility]ATORY - [facility]ICINE [facility] Jul 15, 2024 03:30 PM AMBULATORY - NONE [facility] Jul 16, 2024 08:30 AM AMBULATORY - PSYCHIATRY [facility] Aug 24, 2024 03:30 PM AMBUL[facility]ORY - MEDICINE [facility] Oct 16, 2024 03:30 PM AMBULATORY - MEDICINE [facility] Active, Pending, and Scheduled Orders This section includes a listing of several types of active, pending, and scheduled orders, including clinic medications orders, diagnostic test orders, procedure orders and consult orders; where the start date of the order is 45 days before the date of the Encounter or 45 days after the date of theEncounter. The data comes from all [facility]. Test Date/Time Test Type Test Details Facility Name May 22, 2024 11:18 AM Consult Order TELE-EYE SCREENING CONSULT/SPOPC (OUTPT) Cons [facility] S[facility] [place] May 22, 2024 12:08 PM Consult Order MENTAL HEALTH SERVICES/SPOPC OUTPT Cons Ticket Seller[facility] Choice [facility] May 28, 2024 12:00 AM Laboratory - Chemistry Order MICROALBUMIN CREATININE RATIO PANEL URINE (RANDOM) [facility] Jul 10, 2024 12:00 AM Laboratory - Chemistry Order CBC AND DIFF (AUTO) BLOOD (LAV-BLOOD) [facility] Jul 10, 2024 12:00 AM Laboratory - Chemistry Order PSA BLOOD (SST-SERUM) [facility] Jul 10, 2024 12:00 AM Laboratory - Chemistry Order TSH BLOOD (SST-SERUM) [facility] Jul 10, 2024 12:00 AM Laboratory - Chemistry Order VITAMIN D (25-OH) BLOOD (SST-SERUM) [facility] Jul 10, 2024 12:00 AM Laboratory - Chemistry Order URINALYSIS URINE [facility] Jul 10, 2024 12:00 AM Laboratory - Chemistry Order MICROALBUMIN CREATININE RATIO PANEL URINE (RANDOM) [facility] Jul 10, 2024 12:00 AM Laboratory - Chemistry Order HEMOGLOBIN A1C PANEL BLOOD (LAV-BLOOD) [facility] Jul 10, 2024 12:00 AM Laboratory - Chemistry Order BASIC METABOLIC PANEL (fasting) BLOOD (SST-SERUM) [facility] Jul 10, 2024 12:00 AM Laboratory - Chemistry Order LIVER FUNCTION BLOOD (SST-SERUM) [facility] Jul 10, 2024 12:00 AM Laboratory - Chemistry Order LIPID PANEL FASTING BLOOD (SST-SERUM) [facility] Jul 10, 2024 12:00 AM Laboratory - Chemistry Order URIC ACID BLOOD (SST-SERUM) [facility] Jul 10, 2024 12:00 AM Laboratory - Chemistry Order CALCIUM BLOOD (SST-SERUM) [facility] Social History: Smoking Status (Most current) and Tobacco Use (All prior to encounter date) This section includes the most current, and the historical, smoking and tobacco- related health factors from the [place] facility where the Encounter took place. Current Smoking Status This section includes the most current smoking, or tobacco-related health factor, from the [place] facility where the Encounter took place. Date/Time Current Smoking Status Comment Madyson ity May 28, 2024 01:00 PM [place]-TOBACCO NEVER USED CIGARETTES [place] Tobacco Use History This section includes a history of the smoking, or tobacco-related health factors, that were collected on or before the date of the Encounter. The data comes from the [place] facility where the Encounter took place. Date/Time Smoking Status/Tobacco Use Comment F acjoel May 28, 2024 01:00 PM [place]-TOBACCO NEVER USED OTHER TYPE [place] Encounter Notes: All associated encounter notes This section contains the clinical notes associated to the Encounter. Date/Time Encounter Note(s) Provider Source Jun 17, 2024 08:24 AM PODIATRY CONSULT: LOCAL TITLE: CONSULT REPORT/PODIATRY STANDARD TITLE: PODIATRY CONSULT DATE OF NOTE: JUN 17, 2024@08:24 ENTRY DATE: JUN 17, 2024@08:24:34 AUTHOR: KAMALJIT HORN EXP COSIGNER: URGENCY: STATUS: COMPLETED NAME: AUBRIE SINGH JR DATE: JUN 17, 2024 : Jun PCP: LAST SEEN: INITIAL CONSULT VISIT TODAY NOTE: HAS RECEIVED ONE COVID VACCINE DOSES AT [facility] HPI: Pt. is a 48 yo alert WDWN CAUC MALE who presents for initial podiatric examination with Dr. Honr for treatment of a presenting complaint of AN ULCER- BLISTER AND BEING IN NEED OF NEW ORTHOSES WELL PER PCP. Patient has TYPE II DM & is at risk of injury with self or other non-professional care. Patient has been referred by: LEANNE BASILIO NP Location of symptoms are: nails 1-2-3-4-5 bilat and dry skin with hyperkeratosis medial hallux bilat no infection left Onset of symptoms has been several months due to this being a recurrent condition that has been exacerbating over the past few weeks. Duration of symptoms is daily with periods of exacerbation and remission. Description of symptoms is of an aching-burning nature. PAIN CAN BE 7-8/10 HE HAS NEVER HAD PODIATRIC CARE IN THE PAST. 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 Diabetes Mellitus Type 2 ([facility] [id number]) 2. Long-term current use of anticoagulant 3. DVT - Deep vein thrombosis *NOTE: REVIEWED ABOVE, NOTING NON-CONTRIBUTORY TO THE CC OTHER THAN THE PRESENCE OF TYPE II DM Family History: Non-contributory Social History: N/A Current medications: Active Outpatient Medications (including Supplies): *NOTE: DENIES ANY RECENT CHANGES IN MEDS UPON QUESTIONING TODAY-SEE RECONCILIATION PERFOMED THIS DATE BELOW TOBACCO USE = NONE Active Outpatient Medications Status ====== 1) ACCU-CHEK GUIDE (GLUCOSE) TEST STRIP USE 1 STRIP TO TEST ACTIVE BLOOD SUGARS ONCE DAILY Indication: DIABETES 2) ACCU-CHEK GUIDE ME (GLUCOSE) METER USE METER TO TEST BLOOD ACTIVE SUGARS TWO TIMES A WEEK Indication: DIABETES 3) APIXABAN 5MG TAB TAKE ONE TABLET BY MOUTH EVERY 12 HOURS ACTIVE Indication: FOR PREVENTION OF BLOOD CLOTS 4) GLIPIZIDE 10MG TAB TAKE ONE TABLET BY MOUTH TWICE DAILY ACTIVE Indication: FOR TYPE 2 DIABETES MELLITUS 5) LANCET,SOFTCLIX USE 1 LANCET DIRECTED TWO TIMES A WEEK TO ACTIVE TEST BLOOD SUGAR Indication: DIABETES 6) LISINOPRIL 5MG TAB TAKE ONE TABLET BY MOUTH ONCE DAILY TO ACTIVE CONTROL BLOOD PRESSURE Indication: FOR HIGH BLOOD PRESSURE 7) METFORMIN HCL 500MG 24HR SA TAB TAKE TWO TABLETS BY MOUTH ACTIVE TWICE DAILY Indication: FOR TYPE 2 DIABETES MELLITUS 8) ROSUVASTATIN CA 40MG TAB TAKE ONE TABLET BY MOUTH ONCE DAILY ACTIVE FOR CHOLESTEROL Indication: FOR HIGH CHOLESTEROL 9) SITAGLIPTIN (EQV-ZITUVIO) 100MG TAB TAKE ONE TABLET BY MOUTH ACTIVE ONCE DAILY Indication: DIABETES Allergies:EMPAGLIFLOZIN Previous Surgery/Hospitalization: N/A TO THE CC AIC=11.8 (LAST TAKEN: 05/2024) FBS= 210 RISK=2 HEIGHT:297 lb [134.72 kg] (05/28/2024 13:07) WEIGHT:73 in [185.4 cm] (05/12/2024 13:39) REVIEW OF SYSTEMS: DEFERRED BEING NON-CONTRIBUTORY TO THE CC & I HAVE REVIEWED THE PCP NOTES & PMH WELL. O: DERMATOLOGICAL: Exam reveals skin color to be WNL. TEXT IS DRY HEELS AND HALLUX BILAT. Temp is WNL warm to cool proximal to distal. There is absence of hair noted. Nails are thickened yellow-brown discolored and displaying flakiness, crumbling, sub-ungual debris and rubor in the affected nail grooves. The affected nails are 1-2-3-4-5 bilat. There are superficial painful hyperkeratotic lesions noted at this time located at the following sites: PERIPHERY OF HEELS BILAT & HALLUX BILAT MEDIAL -PLANTAR. There are no rashes, ulcers, indurations or nodules noted. VASCULAR: Exam reveals DP & PT pulses to be absent non-palpable bilateral. CFT is < 3 sec x 10. There are no superficial varices noted and there is +2 edema noted LEFT> RIGHT. MUSCULOSKELETAL: Exam reveals muscle strength and tone to be equal & symmetrical bilaterally & WNL for an individual of this age and present physical-medical condition. There is pain free ROM at all joints distal to and including the ankle. NEUROLOGICAL: Exam reveals S/D, vibratory, light touch & proprioception sensations to be equal & symmetrical bilaterally & diminished for an individual of this age and present physical-medical status. Protective sensation utilizing a Columbia-Pam lOg monofilament is 2-3/10 bilateral. BIOMECHANICAL: Exam is deferred at this time as BEING non-contributory to the cc . 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 P: Treatment consists of debridement-reduction of all nails via manual & electric means with excision of the offending nail borders and thinning of the nail plates to the point of imminent bleeding. Additional treatment consists of surgical PARING-debridement of all hyperkeratosis utilizing sharp dissection WITH A #10 STERILE SCALPEL. DISPENSED TUBEFOAM FOR LEFT HALLUX AND APPLIED BACITRACIN AND BANDAID AND TO TRY TUBEFOAM WITHOUT A BANDAID AT HOME. ALSO SUGGESTED VISK'S VAPORUB FOR NAILS TO BE APPLIE BID AND ATTEMPT THINNING WITH NAIL FILE IF ABLE, DISPENSED M - POWER STP INSERTS AND GALINA TRY IN HIS SHOES & NEED TO ORDER SOCKS AND THERAPEUTIC SHOES (STEEL TOED) AT NEXT VISIT. All care rendered without complications & the patient is progressing well after podiatric care this date and will be scheduled for periodic podiatric care in an attempt to prevent future complications due to the underlying medical conditions. Treatment by a non-professional could be extremely hazardous to the patient's wellbeing due to the underlying medical conditions. Return to Clinic: 16 WeekS (10/16 @ 3:30PM) *DISCUSSED NEW PROTOCOLS AND CALLED ASHLEY TODAY FOR RESCHEDULING I DISCUSSED THE FINDINGS & PLAN WITH PATIENT (UNCHANGED SINCE PREVIOUS VISIT) & PATIENT AGREES AND UNDERSTANDS PLAN Medication Reconciliation: PERFORMED TODAY - SEE BELOW. Outpatient: Has the patient been taking medications as documented in the EMLR? YES: The patient has been taking medications as documented in the EMLR. Essential Medication List for Review used to complete this medication reconciliation. INCLUDED IN THIS LIST: Alphabetical list of active outpatient prescriptions dispensed from this [facility] (local) and dispensed from another [place] or [facility] facility (remote) as well as inpatient orders (local, pending and active), local clinic medications, locally documented non-VA medications, and local prescriptions that have or been discontinued in the past 90 days. - All changes in medications, including all non-VA/Herbal/OTC medications were entered into CPRS. - If there were any medications the patient should no longer take, they were discontinued. - The patient/caregiver was instructed to update this list, discard old lists, and take this list to the next appointment, whether with a VA or non-VA provider. /toro/ KAMALJIT HORN DPM MANAGER HOSPICE Signed: 06/17/2024 16:29 KAMALJIT HORNFIELD
--- OUTSIDE RECORDS SUMMARY | 2024-06-26 04:06 | XMS_ITS | Continuity of Care Document ---
Author Organization [facility] Address [address] [place] [address] Care Team Providers Care Civil Process Server Name Role Phone Edelmira Sage Primary Care Provider [phone] Encounters Date Type Department Care Team Description 11/29/2020 12:00 PM EDT Radiology [facility] Ultrasound [address] [place] [address] Leg edema 11/29/2020 10:30 AM EDT Office Visit [address] [phone] Marleni Stockton, OFE Synovial cyst of left popliteal space (Primary Dx); Leg edema Allergies No known active allergies Medications Multiple Vitamins-Minera ls (MULTIVITAMIN) Liquid None Entered Active Cetirizine HCl (ZyrTEC) 10 MG tablet Take 10 mg by mouth Active Trulicity 1.5 MG/0.5ML Solution Pen-injector INJECT 0.5 ML (1.5 MG TOTAL) UNDER THE SKIN EVERY 7 DAYS. 09/29/2020 Active Dulaglutide (Trulicity) 1.5 MG/0.5ML Solution Pen-injector Inject 1.5 mg under the skin 09/16/2020 Active Jardiance 25 MG Tab Take 1 tablet by mouth 1 (one) time each day 02/27/2020 Active Lisinopril (PRINIVIL,ZESTR IL) 5 MG tablet 11/28/2020 Act jass MetFORMIN HCl (GLUCOPHAGE-XR) 500 MG 24 hr tablet TAKE 2 TABLETS BY MOUTH WITH MEALS TWO TIMES A DAY 11/24/2020 Active Fish Oil (FISH OIL) 1000 MG Cap Take 1,000 mg by mouth Active Rosuvastatin Calcium (CRESTOR) 40 MG tablet Take 40 mg by mouth 07/12/2020 Active Valacyclovir HCl (VALTREX) 1 g tablet every 12 (twelve) hours. Active Active Problems No known active problems Immunizations Name Administration Dates Next Due Covid-19, Vector-nr (Armin ), 0.5 Ml 09/08/2020 Influenza,recombinant,quad,i nject able,Prsrv Fr 03/23/2022,03/17/2021,03/15/2020,03/26/2019 PCV-15 03/23/2022 Social History Smoking Status as of 06/26/2024 Tobacco Use Types Packs/Day Years Used Date Smoking Tobacco: Never Assessed Intimate Partner Violence Answer Date R ecorded Fear of Current or Ex-Partner Not on file Emotionally Abused Not on file 12/26/2022 Physically Abused Not on file 12/26/2022 Sexually Abused Not on file 12/26/2022 Feel Safe at Home Not on file 12/26/2022 Sex and Gender Information Value Date Recorded Sex Assigned at Not on file Legal Sex Male 4:20 PM EST Gender Identity Not on file Sexual Orientation Not on file Last Filed Vital Signs Vital Sign Reading Time Taken Comments Blood Pressure 105/71 11/29/2020 10:33 AM EDT Pulse 87 11/29/2020 10:33 AM EDT Temperature 36.6 ??C (97.8 ??F) 11/29/2020 10:33 AM E DT Respiratory Rate 18 11/29/2020 10:33 AM EDT Oxygen Saturation 97% 11/29/2020 10:33 AM EDT Inhaled Oxygen Concentration - - Weight 123 kg (272 lb) 04/01/2013 10:08 AM EST Height 188 cm (6' 2 ) 04/01/2013 10:08 AM EST Body Mass Index 34.92 04/01/2013 10:08 AM EST Plan of Treatment Not on file Procedures * Due to [place] state law, this organization might not be sharing negative HIV tests. Procedure Name Priority Date/Time Associated Diagnosis Comments US VENOUS DUPLEX SCAN EXTREMITY VEINS UNILAT/LIMITED STUDY (LEG) LEFT STAT (All results called to provider) 11/29/2020 12:31 PM EDT Leg edema Results * Due to [place] state law, this organization might not be sharing negative HIV tests. * US VENOUS DUPLEX SCAN EXTREMITY VEINS UNILAT/LIMITED STUDY (LEG) LEFT FC (11/29/2020 12:31 PM EDT) 11/29/2020 12:4 6 PM EDT Narrative [facility] - 11/29/2020 12:46 PM EDT CONTRAST: EXAM: ??LEFT LOWER EXTREMITY VENOUS DOPPLER STUDY: COMPARISON: None TECHNIQUE: ??Deep veins of the left lower extremity were evaluated from calf level through common femoral vein. FINDINGS: No intraluminal filling defect is identified. ??The deep veins of the left lower extremity are compressible and show normal phasicity. ??There is no evidence of deep venous thrombosis. ??The greater saphenous vein is patent as well. Posterior soft tissue fluid collection measures 6.1 x 2.2 x 2.7 cm. IMPRESSION: ?? Large posterior soft tissue cystic structure is probably a Connolly's cyst. ??No evidence of DVT. Procedure Note Mo Edmond MD - 11/29/2020 CONTRAST: EXAM: LEFT LOWER EXTREMITY VENOUS DOPPLER STUDY: COMPARISON: None TECHNIQUE: Deep veins of the left lower extremity were evaluated fromcalf level through common femoral vein. FINDINGS: No intraluminal filling defect is identified. The deep veins of the leftlower extremity are compressible and show normal phasicity. There is noevidence of deep venous thrombosis. The greater saphenous vein is patent as well. Posterior soft tissue fluid collection measures 6.1 x 2.2 x 2.7 cm. IMPRESSION: Large posterior soft tissue cystic structure is probably a Connolly's cyst.No evidence of DVT. us Marleni Stockton ESCALATOR OPERATOR IMG US ORDERABLES Final Result [facility] Visit Diagnoses Diagnosis Start Date Leg edema Edema 11/29/2020 Synovial cyst of left popliteal space Synovial cyst of popliteal space 11/29/2020 Leg edema Edema 11/29/2020 Care Teams Civil Process Server Relationship Specialty Start Date End Date Edelmira aSge [facility] [address] [address] PCP - General Family Medicine 11/29/20
--- OUTSIDE RECORDS SUMMARY | 2024-06-26 04:06 | XMS_ITS | Encounter Summary ---
Author Name [facility] Address [address] [place] [address] Care Team Providers Care Propagator Name Role Phone FAYE WYMAN Primary Care Provider Unavailabl e Selected Encounter This section includes the information on record at [facility] for the Encounter. Date/Time Encounter Type Encounter Description Reason Pro vider Source May 28, 2024 12:00 AM Outpatient Encounter EVENT (HISTORICAL) I[facility] Encounter Template Text not used by [facility] Plan of Treatment: Future Appointments (+ 6 months) and Future Tests (+/- 45 days) The Plan of Treatment section includes future care activities for the patient from all [facility] treatmentfacilities. This section includes future appointments and future orders which are active, pending or scheduled. Future Appointments This section includes appointments that were scheduled to occur 6 months from the date of the Encounter, up to a maximum of 20 appointments. The data comes from all [place] treatment facilities. Appointment Date/Time Appointment Type Appointme nt Facility Name Jun 17, 2024 03:30 PM AMBULATORY [facility]ICINE [facility] Jun 30, 2024 03:00 PM AMBULATORY - MEDICINE [facility] Jul 15, 2024 03:30 PM AMBULATORY - NONE [facility] Jul 16, 2024 08:30 AM AMBULATORY - [...] orders, procedure orders and consult orders; where thestart date of the order is 45 days before the date of the Encounter or 45 days after the date of the Encounter. The data comes from all [facility] treatment facilities. Test Date/Time Test Type Test Details Facility Name May 22, 2024 11:18 AM Consult Order TELE-EYE SCREENING CONSULT/SPOPC (OUTPT) [facility] May 22, 2024 12:08 PM Consult Order MENTAL HEALTH SERVICES/SPOPC OUTPT [facility] May 28, 2024 12:00 AM Laboratory - Chemistry Order MICROALBUMIN CREATININE RATIO PANEL URINE (RANDOM) [facility] Jul 10, 2024 12:00 AM Laboratory - Chemistry Order CBC AND DIFF (AUTO) BLOOD (LAV-BLOOD) [facility] Jul 10, 2024 12:00 AM Laboratory - Chemistry Order PSA BLOOD (SST-SERUM) [facility] Jul 10, 2024 12:00 AM Laboratory - Chemistry Order TSH BLOOD (SST-SERUM) [facility] Jul 10, 2024 12:00 AM Laboratory - Chemistry Order VITAMIN D (25-OH) BLOOD (SST-SERUM) [facility] Jul 10, 2024 12:00 AM Laboratory - Chemistry Order URINALYSIS URINE [facility] Jul 10, 2024 12:00 AM Laboratory - Chemistry Order MICROALBUMIN CREATININE RATIO PANEL URINE (RANDOM) [facility] Jul 10, 2024 12:00 AM Laboratory - Chemistry Order HEMOGLOBIN A1C PANEL BLOOD (LAV-BLOOD) [facility] Jul 10, 2024 12:00 AM Laboratory - Chemistry Order BASIC METABOLIC PANEL (fasting) BLOOD (SST-SERUM) [facility] Jul 10, 2024 12:00 AM Laboratory - Chemistry Order LIVER FUNCTION BLOOD (SST-SERUM) [facility] Jul 10, 2024 12:00 AM Laboratory - Chemistry Order LIPID PANEL FASTING BLOOD (SST-SERUM) [facility] Jul 10, 2024 12:00 AM Laboratory - Chemistry Order URIC ACID BLOOD (SST-SERUM) [facility] Jul 10, 2024 12:00 AM Laboratory - Chemistry Order CALCIUM BLOOD (SST-SERUM) [facility] Lab Results: +/- 30 days of the encounter This section includes the Chemistry and Hematology Lab Results on record with [facility] for the patient. Radiology Reports and Pathology Reports are provided separately, in subsequent sections. Lab Results This section contains the Chemistry/Hematology Results that were resulted 30 days before or 30 daysafter the date of the Encounter. Date/Time Source Result Type Result - Unit Interpretation Reference Range Comment May 12, 2024 02:11 PM [facility] LIVER FUNCTION Specimen Type: SERUM No comment entered. Ordering Provider: LEANNE BASILIO Report Released Date/Time: May 12, 2024 02:07 PM Reporting Lab: [address] [address] Performing Lab: [address] [address] PROTEIN,TOTAL 7.9 g/dL 6.0-8.3 ALBUMIN 3.9 g/dL 3.5-5.0 ALKALINE PHOSPHATASE 66 U/L 40-150 AST 17 U/L 5-34 ALT 29 U/L BILIRUBIN, TOTAL 0.5 mg/dL 0.2-1.2 May 12, 2024 02:11 PM [facility] LIPID PANEL, NON FASTING Specimen Type: SERUM No comment entered. Ordering Provider: LEANNE BASILIO Report Released Date/Time: May 12, 2024 02:07 PM Reporting Lab: [address] [address] Performing Lab: [address] [address] CHOLESTEROL 267 mg/dL H TRIGLYCERIDE 270 mg/dL H 0-150 LDL calculated 177 mg/dL H 0-129 CHOL/HDL 7.4 HDL CHOLESTEROL 36 mg/dL L 40-60 May 12, 2024 02:11 PM [facility] TSH Specimen Type: SERUM No comment entered. Ordering Provider: LEANNE BASILIO Report Released Date/Time: May 12, 2024 02:07 PM Reporting Lab: [address] [address] Performing Lab: [address] [address] TSH 1.37 u[IU]/mL 0.35-5.00 May 12, 2024 02:11 PM [facility] HEMOGLOBIN A1C PANEL Specimen Type: BLOOD Comment: [...] May 12, 2024 02:07 PM Reporting Lab: [facility] [address] [address] Performing Lab: [facility] [address] [address] HEMOGLOBIN A1C 11.8 H 4.0-5.6 May 12, 2024 02:11 PM [facility] PSA Specimen Type: SERUM No comment entered. Ordering Provider: LEANNE BASILIO Report Released Date/Time: May 12, 2024 02:07 PM Reporting Lab: [facility] [address] [address] Performing Lab: [address] [address] PSA 0.57 ng/mL 0.00-4.00 May 12, 2024 02:11 PM [facility] PT & INR (COUMADIN) Specimen Type: PLASMA No comment entered. Ordering Provider: LEANNE BASILIO Report Released Date/Time: May 12, 2024 02:07 PM Reporting Lab: [facility] [address] [address] Performing Lab: [address] [address] INR 1.0 PROTIME 11.6 s 10.0-13.1 May 12, 2024 02:11 PM [facility] CBC AND DIFF (AUTO) Specimen Type: BLOOD No comment entered. Ordering Provider: LEANNE BASILIO Report Released Date/Time: May 12, 2024 02:07 PM Reporting Lab: [facility] [address] [address] Performing Lab: [facility] [place] [id number] WBC 6.86 10*3/uL 4.50-11.00 RBC 5.28 10*6/uL [...] 10*3/uL 0.00-0.00 May 12, 2024 02:11 PM [facility] BASIC METABOLIC PANEL (non-fasting) Spe cimen Type: SERUM No comment entered. Ordering Provider: LEANNE BASILIO Report Released Date/Time: May 12, 2024 02:07 PM Reporting Lab: [facility] [address] [facility] [address] Performing Lab: [address] [address] UREA NITROGEN 18 mg/dL 7-25 GLUCOSE 244 mg/dL H 65-100 SODIUM 134 mmol/L L 135-145 POTASSIUM 4.4 mmol/L 3.5-5.0 CHLORIDE 100 mmol/L 100-110 CO2 25 meq/L 20-30 CREATININE, Serum 0.96 mg/dL 0.50-1.40 eGFR(CKD-EPI 2020) >90 mL/min >60
--- NOTE | 2024-06-26 05:27 | ED_ITS ---
HPI - General Adult General Chief complaint: Skin/Abscess/Foreign Body Stated complaint: left lower leg swelling/redness Time Seen by Provider: 06/26/24 05:26 Source: patient Mode of arrival: ambulatory Limitations: no limitations History of Present Illness ED Provider: Dr. Agustin Norton HPI narrative: 49-year-old male with a history diabetes mellitus, left lower extremity DVT diagnosed 04/10/2024 on Eliquis who presents emergency department for evaluation pain, swelling, erythema, increased warmth to the left lower extremity times 2 days. Patient states that he has been compliant with his Eliquis. He was treated by his digital sales assistant on 06/17/2019 by-she had callus shaved on his feet and he was toenails clipped. He states that he has a nonhealing wound on his left great toe but this has not been bothering him. Patient states that the redness, swelling and pain got progressively worse so he came to the emergency department for evaluation. Patient denied fever or chills. He denied nausea vomiting or diarrhea. He states that he was always fatigued and tired but he does not think this is increased above his baseline. Related Data Previous Rx's ?Medication ?Instructions ?Recorded apixaban 5 mg (74 tabs) tablets in 5 mg PO BID #74 ea 04/10/24 a dose pack (Eliquis DVT-PE Treat 30D Start) apixaban 5 mg tablet (Eliquis) 5 mg PO Q12H 30 days #60 tabs 04/10/24 metformin 1,000 mg tablet 1,000 mg PO BID 30 days #60 tabs 04/10/24 Allergies Allergy/AdvReac Type Severity Reaction Status Date / Time No Known Allergies Allergy Verified 06/25/24 21:48 Review of Systems 2 Review of Systems: Yes all other systems are reviewed and are negative [facility] Narrative: Social history: 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 He denies tobacco, alcohol and drug use. Medical History (Updated 06/26/24 @ 06:14 by Agustin Norton MD) Hernia Diabetes Surgical History (Updated 04/10/24 @ 09:16 by Beatris Whelan) H/O adenoidectomy Social History Social History Advance Directives: No Physical Exam ED Vital Signs: Vital Signs - 24 hr 06/25/24 21:46 02/21/25 01:33 06/26/24 04:54 Temperature 98.6 F 98.8 F 99.1 F Pulse Rate 110 H 114 H 105 H Respiratory Rate 20 20 18 Blood Pressure 137/81 144/81 H 125/73 Pulse Oximetry 95 96 98 Oxygen Delivery Method Room Air Room Air Room Air BMI result Body Mass Index 39.3 Vital signs revealed an elevated heart rate of 110, elevated blood pressure 137/81, afebrile Exam: General: Awake, alert in no distress, weight 131.5 kg with elevated BMI of 39.3 kg per m2 Head: Normocephalic, atraumatic EENT: PERRL, Lids normal, sclera normal, conjunctiva normal, nose normal , ears normal, throat without erythema or exudates Neck: Supple, no adenopathy Lung: breath sounds symmetric, no wheezing, rales or rhonchi Chest: symmetric movement, nontender Heart: regular rate and rhythm, normal S1, S2 no murmurs or rubs Abdomen: soft, non-tender, nondistended, normal bowel sounds Back: no vertebral tenderness, no CVAT Extremities: Patient has erythema with increased warmth of his left foot, ankle and calf to just above the midline with some erythema extending along the lateral aspect of the calf to just below the knee, the erythema is warm to the touch and blanches with pressure. Patient has dry skin on his feet and a small ulcer to the dorsal aspect of the great toe, no purulent discharge noted Neuro: Awake, alert, oriented, normal speech, cranial nerves intact, moves all extremities symmetrically Psych: Pleasant, cooperative Medications Administered Discontinued Medications Generic Name Dose Route Start Last Admin Trade Name Freq PRN Reason Stop Dose Admin Acetaminophen 650 mg 06/26/24 01:33 06/26/24 01:39 Acetaminophen 325 Mg Tablet PO 06/26/24 01:34 650 mg ONCE ONE Administration Medical Decision Making Medical Decision Making [facility] Narrative: 49-year-old male with a history diabetes mellitus, left lower extremity DVT diagnosed 04/10/2024 on Eliquis who presents emergency department for evaluation pain, swelling, erythema, increased warmth to the left lower extremity times 2 days. Patient states that he has been compliant with his Eliquis. Vital signs revealed an elevated heart rate, patient was afebrile. Left lower extremity revealed cellulitis of the left great toe, ankle and calf to midline with lymphangitis along the medial aspect of the left calf, with increased warmth. Left lower extremity is also swollen compared to the right. Differential diagnosis: ?Includes but is not limited to cellulitis, diabetic foot ulcer, DVT, anemia, electrolyte abnormalities Course: 06:06 hours My interpretation patient's laboratory evaluation as follows: Elevated WBC 09841, elevated glucose 328. Duplex ultrasound of the left lower extremity revealed old clot with no extension which is reassuring. Given the patient's diabetes I am concerned that he has a diabetic foot ulcer which is now spread and cause cellulitis to his left lower extremity. I did order blood cultures x2 and a lactic acid. Patient was treated with Zosyn 4.5 g IV. Patient was given normal saline 1 L IV and regular insulin 5 units IV for his elevated glucose. I did discuss admission with the covering hospitalist, Dr. Graf and the patient will be admitted for further treatment. Admission/Observation Consideration of admission/observation: Escalation of care including admission/observation considered (Yes) Lab Data MDM Lab Attestation statement: I reviewed the patient's lab results. 06/25/24 21:55 06/25/24 21:55 Labs: Lab Results 06/25/24 Range/Units 21:55 WBC 12.0 H (4.8-10.8) X10*3/uL RBC 5.16 (4.60-5.80) X10*6/uL Hgb 15.3 (14.0-18.0) g/dl Hct 44.0 (42.0-52.0) % MCV 85.3 (80.0-98.0) fL MCH 29.7 (27.0-33.0) pg MCHC 34.8 (31.0-36.0) g/dl RDW 12.3 (11.0-16.0) % Plt Count 249 (160-400) X10*3/uL MPV 10.0 (9.4-12.4) fL Immature Gran % (Auto) 0.3 (0.0-0.4) % Neut % (Auto) 73.0 (45-73) % Lymph % (Auto) 14.1 L (20-40) % [place] % (Auto) 9.6 (2-11) % Eos % (Auto) 2.7 (0-4) % Baso % (Auto) 0.3 (0-2) % Lymph # (Auto) 1.7 (1.2-4.9) X10*3/uL [place] # (Auto) 1.2 (0.1-1.2) X10*3/uL Eos # (Auto) 0.3 (0.0-0.4) X10*3/uL Baso # (Auto) 0.0 (0.0-0.2) X10*3/uL Abs Immat Gran (auto) 0.04 H (0.00-0.03) X10*3/uL Absolute Neuts (auto) 8.8 H (2.0-8.3) x10*3/uL Absolute Nucleated RBC 0.000 (0.0-0.012) X10*3/uL Nucleated RBC % (auto) 0.0 (0.0-0.2) /100WBC Sodium 137 (135-145) mmol/L Potassium 4.3 (3.3-5.1) mmol/L Chloride 101 (96-108) mmol/L Carbon Dioxide 26 (22-29) mmol/L Anion Gap 14 (12-20) BUN 19 H (9-16) mg/dL Creatinine 1.00 (0.5-1.4) mg/dL Estim Creat Clear Calc 122.5 Estimated GFR > 60 Random Glucose 328 H (60-115) mg/dL Calcium 9.7 (8.4-10.2) mg/dL Total Bilirubin 0.4 (0.0-1.0) mg/dL AST 22 (5-37) U/L ALT 39 (0-40) U/L Alkaline Phosphatase 64 (39-117) U/L Total Protein 7.9 (6.5-8.0) g/dL Albumin 4.4 (3.5-5.0) g/dL Radiology Impression Discussion of test interpretation with radiology: I have reviewed the radiologist's reading. Radiologist Impression: Venous duplex ultrasound left lower extremity Comparison: US/SR - US VENOUS DUPLEX LE LT - 04/10/24 10:12 EST Findings: Redemonstration of thrombus within the left superficial femoral and popliteal veins, similar prior exam. A duplicated left femoral vein appears patent. No popliteal cyst. Right common femoral vein is imaged and patent. IMPRESSION: Redemonstration of deep vein thrombosis with thrombus within the left superficial femoral and popliteal veins, similar prior exam. This document has been electronically signed by: Sage Campa MD, PHD on 06/26/2024 03:43:49 Dictated By: Sage Campa MD Independent Historian Clinical information obtained from an independent historian. History obtained from or confirmed by: Other (Significant other, Rachna) Chronic Conditions Patient?s care impacted by: Diabetes Discharge Plan Discharge Clinical Impression: Diabetic foot ulcer, Cellulitis of left leg, Acute hyperglycemia Patient Disposition: Admitted As Inpatient Print Language: Croatian
[2024-06-26] MEDS: Piperacillin Sodium/Tazobactam 4.5 GM in 0.9 % Sodium Chloride 100 ML IV (06:17)
--- NOTE | 2024-06-26 06:18 | MHC.EDTECH ---
Patient 2nd set of blood culture drawn and sent to lab ,vitals taken .blood sugar check ,RN Shannan aware of result of 257.
[2024-06-26] MEDS: 0.9 % Sodium Chloride 1,000 ML 999 ML IV (06:21)
[2024-06-26 06:25] LABS: Glucose, Whole Blood 257 mg/dL (60-115)
[2024-06-26 06:32] LABS: Lactic Acid 1.3 mmol/L (0.5-2.0)
--- NOTE | 2024-06-26 06:39 | P.HPHOSP_ITS ---
History of Present Illness Date of Service: 06/26/24 Chief Complaint: left leg swelling A 49-year-old male with a history of diabetes mellitus and left lower extremity DVT diagnosed on 04/10/2024 was prescribed Eliquis but did not start taking it until May, mistakenly believing he was uninsured, despite having coverage [facility]. He presented with pain, swelling, erythema, and increased warmth in the left lower extremity for three days. He denied fever or chills. Heart rate was 104, WBC 12, meeting sepsis criteria. Vital signs showed tachycardia but no fever. A duplex ultrasound of the left lower extremity showed an unchanged chronic clot from 04/10/2024. The patient is being treated with Zosyn 4.5 g IV. Review of Systems 2 Review of Systems: Gen: no fever Resp: no sob, no cough CV: no chest, no CASTLE, no leg edema GI: No n/v, no abd pain Neuro: No confusion Yes all other systems are reviewed and are negative [facility] Medical History (Updated 06/26/24 @ 06:14 by Agustin Norton MD) Hernia Diabetes Surgical History (Updated 04/10/24 @ 09:16 by Beatris Whelan) H/O adenoidectomy Social History Advance Directives: No Meds Allergies Allergy/AdvReac Type Severity Reaction Status Date / Time No Known Allergies Allergy Verified 06/25/24 21:48 Active Medications: Current Medications Acetaminophen (Acetaminophen 325 Mg Tablet) 650 mg PO Q6H PRN PRN Reason: Pain, Mild 1-3,fever,headache Calcium Carbonate (Calcium Carbonate 750 Mg Tab.Chew) 750 mg PO Q4H PRN PRN Reason: Heartburn Dextrose (Dextrose 50 % 25 Gm/50 Ml Syringe) 25 gm IVPUSH Q15M PRN; Protocol PRN Reason: per Hypoglycemia Standing Ord. Glucose (Glucose Gel 15 Gm Gel..Gram.) 15 gm PO Q15M PRN; Protocol PRN Reason: per Hypoglycemia Standing Ord. Sodium Chloride (Ns) 1,000 mls @ 999 mls/hr IV .Q1H1M STA Stop: 06/26/24 07:13 Last Admin: 06/26/24 06:21 Dose: 999 mls/hr Insulin Human Lispro (Insulin Lispro 100 Unit/Ml 3 Ml Vial) 0 [facility]; Protocol Magnesium Hydroxide (Milk Of Magnesia 30 Ml Oral.Susp) 30 ml PO DAILY PRN PRN Reason: Constipation Melatonin (Melatonin 3 Mg Tablet) 6 mg PO BEDTIME PRN PRN Reason: Insomnia Ondansetron HCl (Ondansetron Hcl 4 Mg/2 Ml Vial) 4 mg IVPUSH Q8H PRN PRN Reason: Nausea and Vomiting Polyethylene Glycol (Polyethylene Glycol 3350 17 Gm Powd.Pack) 17 gm PO DAILY PRN PRN Reason: Constipation Sodium Chloride (0.9 % Sodium Chloride Flush 3 Ml Syringe) 3 ml IVFLUSH QSHIFT [facility] Physical Exam 2 Vital Signs and Narrative: Vital Signs: Last Vital Signs Temp 98.3 F 06/26/24 06:07 Pulse 104 H 06/26/24 06:07 Resp 16 06/26/24 06:07 BP 125/70 06/26/24 06:07 Pulse Ox 98 06/26/24 06:07 O2 Del Method Room Air 06/26/24 06:07 BMI result Body Mass Index 39.3 Const: Other: General: AO X 3, no acute distress Resp: CTA bilateral CVS: S1,S2,RRR GI: +BS, NT, no distention Skin: left leg bigger than right, erythema with lymphagic spread as in the picture Neuro: motor grossly intact Psych: appropriate affect Results Labs 06/25/24 21:55 06/25/24 21:55 Labs: Laboratory Results - last 24 hr 06/25/24 06/26/24 06/26/24 21:55 06:07 06:20 MCV 85.3 MCH 29.7 MCHC 34.8 RDW 12.3 Plt Count 249 MPV 10.0 Immature Gran % (Auto) 0.3 Neut % (Auto) 73.0 Lymph % (Auto) 14.1 L Dare % (Auto) 9.6 Eos % (Auto) 2.7 Baso % (Auto) 0.3 Lymph # (Auto) 1.7 Dare # (Auto) 1.2 Eos # (Auto) 0.3 Baso # (Auto) 0.0 Abs Immat Gran (auto) 0.04 H Absolute Neuts (auto) 8.8 H Absolute Nucleated RBC 0.000 Nucleated RBC % (auto) 0.0 Anion Gap 14 Estim Creat Clear Calc 122.5 Estimated GFR > 60 POC Glucose 257 H Random Glucose 328 H Lactic Acid 1.3 Calcium 9.7 Total Bilirubin 0.4 AST 22 ALT 39 Alkaline Phosphatase 64 Total Protein 7.9 Albumin 4.4 Assessment and Plan (1) Cellulitis of left leg: Status: Acute (2) Acute hyperglycemia: Status: Acute (3) Diabetic foot ulcer: Status: Acute Plan 49 year male morbidly obese with non insulin dependent diabetes, DVT dagnosed in 2023 but did start eliquis until a month later and here with cellulitis of left leg Sepsis d/t cellulitis of the left cultures pending given Zosyn in ED start Vanco ID consut if worsening Diabetes with hyperglycemia he takes glipizide and metformin, 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
[2024-06-26] MEDS: Insulin Lispro 100 UNIT/ML 3 ML VIAL SUBCUT ×4 (07:12→21:20)
[2024-06-26 07:18] LABS: Glucose, Whole Blood 252 mg/dL (60-115)
[2024-06-26] MEDS: Apixaban 5 MG TABLET PO ×2 (09:02→21:20)
[2024-06-26] MEDS: vancomycin/NS 2,000 MG/500 ML PLAST..BAG 250 MG IV (09:02)
--- NOTE | 2024-06-26 09:28 | MHC.CM.PN ---
Attempted to meet with patient in regards to discharge planning. Patient currently on the telephone. Will attempt to meet again. Continue to monitor for d/c needs.
--- NOTE | 2024-06-26 10:07 | MHC.CM.PN ---
Met with patient in regards to discharge planning. Patient lives with his girlfriend, ambulates independently and had no services prior to coming to the hospital. No services anticipated to be needed because patient is not homebound. PCP verified as Dr Vaz at the [facility]. Patient is listed as self-pay but has benefits through the [facility]. Copy of HCP obtained from [facility]. Patient's girlfriend will transport patient home when medically stable. Continue to monitor for d/c needs.
--- NOTE | 2024-06-26 10:12 | PHA.PROG ---
Admission Date/Time: June 26, 2024 06:35 Indication: skin Weight in k.542 kg Adjusted body weight in Kg: Scott body weight in Kg: Obesity Dosing Indication % IBW: Serum Creatinine - Last 168 Hours 06/25/24 21:55 Creatinine 1.00 Estimated CrCl and GFR - Last 168 Hours 06/25/24 21:55 Estim Creat Clear Calc 122.5 Estimated GFR > 60 Vancomycin Loading Dose: 2000mg x 1 Current Vancomycin Dosing Regimen: 1250mg Q12H Vancomycin Monitoring using AUC goal of 400 - 600 range with trough as surrogate marker: 457mg/L Date and Time for next Vancomycin Level to be drawn: 06/27 @1900 Pharmacist Comments on Vancomycin Plan: Predicted trough of 15mg/L; pt BMI of 39 obese model being used Vancomycin dosing will take advantage of [employer] as a clinical decision support tool that uses Bayesian modeling to calculate individual patient's pharmacokinetic parameters and forecast the patient's drug concentration time course with the target goal AUC 24 range of 400 - 600 mg/L/hr.
[2024-06-26 10:54] LABS: Estimated Glomerular Filt Rate > 60
--- NOTE | 2024-06-26 11:23 | PHA.MEDREC ---
Addendum entered by Thierry Matthews 06/26/24 11:40: reviewed Original Note: Pharmacy Consult ? Medication Reconciliation Pharmacy has completed the medication reconciliation. Utilized list from MD.
--- NOTE | 2024-06-26 11:41 | P.EN_ITS ---
Event Note Date of Service: 06/26/24 Event Note: Admitted for left leg cellulitis, no change in left leg swelling pain or redness times few days duration denies fever, no chills tolerating diet no nausea no vomiting or abdominal pain. General resting comfortably in no acute distress. Anicteric sclera Neck no JVD. CVS regular rate rhythm, Respiratory lungs clear to auscultation, no respiratory distress, no wheeze, no rhonchi. Gastrointestinal abdomen soft, non tender, bowel sounds audible. 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 continue eliquis 5 mg b.i.d. check with vascular if candidate for thrombectomy dvt prophylaxis--eliquis Patient require continued inpatient hospitalization for iv abx for cellulitis of the left leg with sepsis. Time Spent With Patient Time: Total time managing care of this patient today ____ minutes.
[2024-06-26] MEDS: SITagliptin Phosphate 100 MG TABLET PO (12:28)
[2024-06-26] MEDS: Atorvastatin Calcium 80 MG TABLET PO (12:28)
[2024-06-26 12:53] LABS: Glucose, Whole Blood 212 mg/dL (60-115)
--- NOTE | 2024-06-26 13:19 | P.CONGS_ITS ---
History of Present Illness Consult details Consult date: 06/26/24 Reason for consult: other (DVT) Narrative: Very pleasant 49-year-old gentleman presents for evaluation for DVT. He was originally diagnosed in early April. Unfortunately did not take Eliquis subsequent to that. He presented to the emergency room with increase in swelling and erythema for approximately 3 days. Concerned about that lower extremity he came to the ER had undergone repeat ultrasound and now presents for evaluation. Review of Systems 2 Review of Systems: Yes all other systems are reviewed and are negative Constitutional: Constitutional: Reports no additional constitutional complaints ENT: Reports Normal hearing present Cardiovascular: Cardiovascular: Denies chest pain, Denies chest pain at rest, Denies chest pain with activity and Denies pedal edema Respiratory: Respiratory: Denies cough Gastrointestinal: Gastrointestinal: Denies abdominal pain Musculoskeletal: Musculoskeletal: Denies abnormal gait, Denies muscle cramps and Denies radiating pain into limb Integumentary/Breasts: Skin/Breast: Denies skin ulcer and Denies wounds Neurologic: Reports Normal hearing present and Denies abnormal gait Psychiatric: Psychiatric: Reports no additional psychiatric complaints [facility] Past Medical History Medical History (Updated 06/26/24 @ 13:22 by Madi Lay MD) Hernia Diabetes Surgical History Surgical History (Updated 04/10/24 @ 09:16 by Beatris Whelan) H/O adenoidectomy Social History Social History Smoked in Last 30 Days: No Use of substances other than those prescribed or required for medical reasons: No Advance Directives: Yes Advance Directives on File: Yes Advance Directives Date on File: 06/26/24 service: Yes Meds Allergies Allergy/AdvReac Type Severity Reaction Status Date / Time No Known Allergies Allergy Verified 06/25/24 21:48 Active Medications: Current Medications Acetaminophen (Acetaminophen 325 Mg Tablet) 650 mg PO Q6H PRN PRN Reason: Pain, Mild 1-3,fever,headache Apixaban (Apixaban 5 Mg Tablet) 5 mg PO BID [facility] Last Admin: 06/26/24 09:02 Dose: 5 mg Atorvastatin Calcium (Atorvastatin Calcium 80 Mg Tablet) 80 mg PO DAILY [facility] Last Admin: 06/26/24 12:28 Dose: 80 mg Calcium Carbonate (Calcium Carbonate 750 Mg Tab.Chew) 750 mg PO Q4H PRN PRN Reason: Heartburn Dextrose (Dextrose 50 % 25 Gm/50 Ml Syringe) 25 gm IVPUSH Q15M PRN; Protocol PRN Reason: per Hypoglycemia Standing Ord. Glipizide (Glipizide 10 Mg Tablet) 10 mg PO BID [facility] Glucose (Glucose Gel 15 Gm Gel..Gram.) 15 gm PO Q15M PRN; Protocol PRN Reason: per Hypoglycemia Standing Ord. Vancomycin HCl 1,250 mg/ (Sodium Chloride) 250 mls @ 166.667 mls/hr IV Q12H [facility] Insulin Human Lispro (Insulin Lispro 100 Unit/Ml 3 Ml Vial) 0 unit SUBCUT QIDACHS [facility]; Protocol Last Admin: 06/26/24 12:58 Dose: 4 unit Magnesium Hydroxide (Milk Of Magnesia 30 Ml Oral.Susp) 30 ml PO DAILY PRN PRN Reason: Constipation Melatonin (Melatonin 3 Mg Tablet) 6 mg PO BEDTIME PRN PRN Reason: Insomnia Ondansetron HCl (Ondansetron Hcl 4 Mg/2 Ml Vial) 4 mg IVPUSH Q8H PRN PRN Reason: Nausea and Vomiting Pharmacy Consult (Consult Rx Vancomycin Dosing) 1 each MISCELLANE DAILY PRN PRN Reason: Consult order Polyethylene Glycol (Polyethylene Glycol 3350 17 Gm Powd.Pack) 17 gm PO DAILY PRN PRN Reason: Constipation Sitagliptin Phosphate (Sitagliptin Phosphate 100 Mg Tablet) 100 mg PO DAILY [facility] Last Admin: 06/26/24 12:28 Dose: 100 mg Sodium Chloride (0.9 % Sodium Chloride Flush 3 Ml Syringe) 3 ml IVFLUSH QSHIFT [facility] Last Admin: 06/26/24 07:07 Dose: Not Given Home Medications ?Medication ?Instructions ?Recorded ?Confirmed ?Last Taken ?Type glipizide 5 mg tablet 10 mg PO BID 06/26/24 06/26/24 Unknown History lisinopril 5 mg tablet 5 mg PO DAILY 06/26/24 06/26/24 Unknown History metformin 500 mg tablet 1,000 mg PO BID 06/26/24 06/26/24 Unknown History rosuvastatin 40 mg tablet 40 mg PO DAILY 06/26/24 06/26/24 Unknown History sitagliptin 100 mg tablet 100 mg PO DAILY 06/26/24 06/26/24 Unknown History Physical Exam 2 Vital Signs: Vital Signs: Last Vital Signs Temp 98.2 F 06/26/24 12:21 Pulse 110 H 06/26/24 12:21 Resp 20 06/26/24 12:21 BP 136/75 06/26/24 12:21 Pulse Ox 95 06/26/24 12:21 O2 Del Method Room Air 06/26/24 12:21 BMI result Body Mass Index 39.3 Const: General: cooperative, healthy appearing and comfortable O rientation/consciousness: oriented to person, oriented to place and oriented to time HEENT: Head: Yes normal to inspection Neck: Neck: Yes normal visual inspection Carotids: no bruits Chest: Chest palpation & inspection: normal inspection of the chest Resp: Effort & Inspection: normal respiratory effort and able to speak in complete sentences Auscultation: clear to auscultation bilaterally, no crackles, no rales, no rhonchi and no wheezes Cardio: Rate: regular rate Rhythm: regular rhythm Heart sounds: S1 normal heart sound present and S2 normal heart sound present Bruits: no carotid bruits Peripheral pulses: Peripheral pulses 2+ throughout GI: Inspection: Yes normal to inspection Skin: Wounds: no wounds Hair: normal Neuro: General: oriented to person, oriented to place and oriented to time Cranial nerves: Yes CN's II-XII intact bilaterally and Yes Normal hearing present Cognition (Neuro): normal cognition Motor exam (neuro): 5/5 motor strength present throughout Extrem: Other: venous exam: +2 edema left, erythema General: No clubbing, No cyanosis and Yes edema Psych: Appearance: grossly normal Mental Status: mental status grossly normal Speech and movement: Normal speech and movement present Results Labs 06/25/24 21:55 06/26/24 10:28 Labs: Abnormal lab results 06/25/24 06/26/24 06/26/24 Range/Units 21:55 06:20 07:05 WBC 12.0 H (4.8-10.8) X10*3/uL Lymph % (Auto) 14.1 L (20-40) % Abs Immat Gran (auto) 0.04 H (0.00-0.03) X10*3/uL Absolute Neuts (auto) 8.8 H (2.0-8.3) x10*3/uL BUN 19 H (9-16) mg/dL POC Glucose 257 H 252 H (60-115) mg/dL Random Glucose 328 H (60-115) mg/dL 06/26/24 Range/Units 12:49 WBC (4.8-10.8) X10*3/uL Lymph % (Auto) (20-40) % Abs Immat Gran (auto) (0.00-0.03) X10*3/uL Absolute Neuts (auto) (2.0-8.3) x10*3/uL BUN (9-16) mg/dL POC Glucose 212 H (60-115) mg/dL Random Glucose (60-115) mg/dL Short CBC 06/25/24 Range/Units 21:55 WBC 12.0 H (4.8-10.8) X10*3/uL Hgb 15.3 (14.0-18.0) g/dl Hct 44.0 (42.0-52.0) % Plt Count 249 (160-400) X10*3/uL BMP 06/25/24 06/26/24 21:55 10:28 Sodium 137 Potassium 4.3 Chloride 101 Carbon Dioxide 26 BUN 19 H Creatinine 1.00 0.95 Calcium 9.7 Liver Function 06/25/24 Range/Units 21:55 Total Bilirubin 0.4 (0.0-1.0) mg/dL AST 22 (5-37) U/L ALT 39 (0-40) U/L Alkaline Phosphatase 64 (39-117) U/L Albumin 4.4 (3.5-5.0) g/dL All other labs normal. Assessment and Plan (1) DVT (deep venous thrombosis): Qualifiers: DVT location: lower extremity Affected thrombotic vein of extremity: f emoral Chronicity: unspecified Laterality: left Qualified Code(s): I82.412 - Acute embolism and thrombosis of left femoral vein Status: Acute Plan In short patient has left femoral and popliteal DVT. This is unfortunately chronic now this began in the beginning of April and we are now in late June. I do not think he has a proximal extension of this. Would treat with anticoagulation. Can follow-up with us on an as-needed basis. Case discussed with hospitalist team. Thank you for allowing us to assist in his care Procedures Date of Service Date of Service: 06/26/24
--- NOTE | 2024-06-26 17:42 | PC.NURSE ---
Pt placed in hospital bed for comfort
[2024-06-26 17:43] LABS: Glucose, Whole Blood 203 mg/dL (60-115)
[2024-06-26] MEDS: 0.9 % Sodium Chloride Flush 3 ML SYRINGE IVFLUSH (17:52)
[2024-06-26 21:03] LABS: Glucose, Whole Blood 275 mg/dL (60-115)
[2024-06-26] MEDS: glipiZIDE 10 MG TABLET PO (21:20)
[2024-06-26] MEDS: vancomycin HCL 1,250 MG in 0.9 % Sodium Chloride 250 ML 166.67 MG IV (21:39)
[2024-06-27] MEDS: 0.9 % Sodium Chloride Flush 3 ML SYRINGE IVFLUSH ×4 (00:17→21:25)
[2024-06-27 01:33] VITALS: BMI 39.3
[2024-06-27 03:08] VITALS: BP 140/82; PULSE 100; RESP 18; TEMP 36.2; O2SAT 95
[2024-06-27 06:37] LABS: Alanine Aminotransferase 26 U/L (0-40); Alkaline Phosphatase 62 U/L (39-117); Anion Gap 12 (12-20); Aspartate Amino Transferase 18 U/L (5-37); Bilirubin Total 0.6 mg/dL (0.0-1.0); Blood Urea Nitrogen 14 mg/dL (9-16); Calcium 9.4 mg/dL (8.4-10.2); Carbon Dioxide 24 mmol/L (22-29); Chloride 104 mmol/L (96-108); Creatinine Clr Calc Pharmacy 121.3; Estimated Glomerular Filt Rate > 60; Glucose Random 221 mg/dL (60-115); Potassium 4.4 mmol/L (3.3-5.1); Sodium 136 mmol/L (135-145); Total Protein 7.4 g/dL (6.5-8.0)
[2024-06-27 07:59] LABS: Glucose, Whole Blood 240 mg/dL (60-115)
[2024-06-27 08:02] VITALS: BP 121/73; PULSE 97; RESP 18; TEMP 37; O2SAT 93
[2024-06-27] MEDS: glipiZIDE 10 MG TABLET PO ×2 (08:04→21:24)
[2024-06-27] MEDS: SITagliptin Phosphate 100 MG TABLET PO (08:04)
[2024-06-27] MEDS: Atorvastatin Calcium 80 MG TABLET PO (08:04)
[2024-06-27] MEDS: Apixaban 5 MG TABLET PO ×2 (08:04→21:24)
[2024-06-27] MEDS: Insulin Lispro 100 UNIT/ML 3 ML VIAL SUBCUT ×4 (08:04→21:24)
[2024-06-27] MEDS: vancomycin HCL 1,250 MG in 0.9 % Sodium Chloride 250 ML 166.67 MG IV ×2 (08:07→21:22)
--- NOTE | 2024-06-27 10:41 | HO.PM.IMPN ---
Subjective Subjective Date of Service: 06/27/24 Interval History: Feels better, denies fever, no chills, no nausea, no vomiting or abdominal pain tolerating diarrhea left leg redness and swelling improving. Review of Systems All other system reviewed and are negative. Physical Exam Vital Signs: Vital Signs: Last Vital Signs Temp 98.6 F 06/27/24 08:02 Pulse 97 06/27/24 08:02 Resp 18 06/27/24 08:02 BP 121/73 06/27/24 08:02 Pulse Ox 93 06/27/24 08:02 O2 Del Method Room Air 06/27/24 08:02 BMI result Body Mass Index 39.3 Const: Other: General resting comfortably in no acute distress. Anicteric sclera Neck no JVD. CVS regular rate rhythm, Respiratory lungs clear to auscultation, no respiratory distress, no wheeze, no rhonchi. Gastrointestinal abdomen soft, non tender, bowel sounds audible Extremities left lower extremity redness and swelling improving Neuro nonbfocal Skin no rash Appropriate affect. Objective Data Active Medications Acetaminophen (Acetaminophen 325 Mg Tablet) 650 mg PO Q6H PRN PRN Reason: Pain, Mild 1-3,fever,headache Apixaban (Apixaban 5 Mg Tablet) 5 mg PO BID [facility] Last Admin: 06/27/24 08:04 Dose: 5 mg Documented By: IMELDA Atorvastatin Calcium (Atorvastatin Calcium 80 Mg Tablet) 80 mg PO DAILY [facility] Last Admin: 06/27/24 08:04 Dose: 80 mg Documented By: IMELDA Calcium Carbonate (Calcium Carbonate 750 Mg Tab.Chew) 750 mg PO Q4H PRN PRN Reason: Heartburn Dextrose (Dextrose 50 % 25 Gm/50 Ml Syringe) 25 gm IVPUSH Q15M PRN; Protocol PRN Reason: per Hypoglycemia Standing Ord. Glipizide (Glipizide 10 Mg Tablet) 10 mg PO BID [facility] Last Admin: 06/27/24 08:04 Dose: 10 mg Documented By: IMELDA Glucose (Glucose Gel 15 Gm Gel..Gram.) 15 gm PO Q15M PRN; Protocol PRN Reason: per Hypoglycemia Standing Ord. Vancomycin HCl 1,250 mg/ (Sodium Chloride) 250 mls @ 166.667 mls/hr IV Q12H [facility] Last Infusion: 06/27/24 10:01 Dose: Infused Documented By: IMELDA Insulin Human Lispro (Insulin Lispro 100 Unit/Ml 3 Ml Vial) 0 unit SUBCUT QIDACHS [facility]; Protocol Last Admin: 06/27/24 08:04 Dose: 4 unit Documented By: IMELDA Magnesium Hydroxide (Milk Of Magnesia 30 Ml Oral.Susp) 30 ml PO DAILY PRN PRN Reason: Constipation Melatonin (Melatonin 3 Mg Tablet) 6 mg PO BEDTIME PRN PRN Reason: Insomnia Ondansetron HCl (Ondansetron Hcl 4 Mg/2 Ml Vial) 4 mg IVPUSH Q8H PRN PRN Reason: Nausea and Vomiting Pharmacy Consult (Consult Rx Vancomycin Dosing) 1 each MISCELLANE DAILY PRN PRN Reason: Consult order Polyethylene Glycol (Polyethylene Glycol 3350 17 Gm Powd.Pack) 17 gm PO DAILY PRN PRN Reason: Constipation Sitagliptin Phosphate (Sitagliptin Phosphate 100 Mg Tablet) 100 mg PO DAILY [facility] Last Admin: 06/27/24 08:04 Dose: 100 mg Documented By: IMELDA Sodium Chloride (0.9 % Sodium Chloride Flush 3 Ml Syringe) 3 ml IVFLUSH QSHIFT [facility] Last Admin: 06/27/24 08:05 Dose: 3 ml Documented By: IMELDA Labs 06/25/24 21:55 06/27/24 05:29 Labs: Laboratory Results - last 24 hr 06/26/24 06/26/24 06/26/24 10:28 12:49 17:39 Hold Purple Top Anion Gap Estim Creat Clear Calc 129.0 Estimated GFR > 60 POC Glucose 212 H 203 H Random Glucose Calcium Total Bilirubin AST ALT Alkaline Phosphatase Total Protein Albumin 06/26/24 06/27/24 06/27/24 21:00 05:29 07:51 Hold Purple Top SEE NOTE Anion Gap 12 Estim Creat Clear Calc 121.3 Estimated GFR > 60 POC Glucose 275 H 240 H Random Glucose 221 H Calcium 9.4 Total Bilirubin 0.6 AST 18 ALT 26 Alkaline Phosphatase 62 Total Protein 7.4 Albumin 4.0 Microbiology Microbiology Results: Microbiology 06/26/24 06:15 Blood Culture - Preliminary Blood - Venous No growth after 24 hours. 06/26/24 06:07 Blood Culture - Preliminary Blood - Venous No growth after 24 hours. Assessment and Plan (1) DVT (deep venous thrombosis): Status: Acute (2) Acute hyperglycemia: Status: Acute (3) Cellulitis of left leg: Status: Acute Plan 49 year male morbidly obese with non insulin dependent diabetes, DVT dagnosed in dece2023 but did start eliquis until a month later and here with cellulitis of left leg Sepsis d/t cellulitis of the left leg Redness and swelling improving WBC 43115, normal lactic acid, blood cultures negative times 24 hours Continue IV Vanco started to 06/26 Follow labs Diabetes with hyperglycemia Hemoglobin A1c 13 on 04/2024 Blood sugar around 250, Continue glipizide and Januvia ,hold metformin , 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 continue eliquis 5 mg b.i.d. Spoke with vascular surgery not a candidate for thrombectomy dvt prophylaxis--eliquis Patient require continued inpatient hospitalization for iv abx for cellulitis of the left leg with sepsis. Quality Stroke Does the patient have a stroke diagnosis?: No VTE Prior VTE?: Yes VTE Risk Level:: Medical - moderate - high VTE Device Contraindication: Treatment Not Indicated VTE Drug Contraindication: N/A - Med Ordered
[2024-06-27 11:38] LABS: Glucose, Whole Blood 277 mg/dL (60-115)
[2024-06-27] MEDS: Acetaminophen 325 MG TABLET 650 MG PO ×2 (15:49→21:22)
[2024-06-27 16:06] VITALS: BP 129/84; PULSE 104; RESP 18; TEMP 36.7; O2SAT 96
[2024-06-27 16:22] LABS: Glucose, Whole Blood 255 mg/dL (60-115)
[2024-06-27 19:24] VITALS: BP 141/77; PULSE 98; RESP 18; TEMP 36.6; O2SAT 95
[2024-06-27 20:39] LABS: Glucose, Whole Blood 330 mg/dL (60-115)
--- NOTE | 2024-06-27 21:31 | PC.NURSE ---
Pt seen on bed alert and oriented, left leg pinkish an swollen, + CMS, c/o 10/13 and requesting for tylenol, discuss with pt if Tylenol is sufficient for relief and with positive response, pt refused for any alternative med for pain.
[2024-06-28 03:36] VITALS: BP 131/71; PULSE 88; RESP 18; TEMP 36.1; O2SAT 93
[2024-06-28] MEDS: vancomycin HCL 1,250 MG in 0.9 % Sodium Chloride 250 ML 166.67 MG IV (05:19)
[2024-06-28 06:42] LABS: Hematocrit 42.5 % (42.0-52.0); Hemoglobin 14.8 g/dl (14.0-18.0); Mean Corpuscular HGB Conc 34.8 g/dl (31.0-36.0); Mean Corpuscular Hemoglobin 30.1 pg (27.0-33.0); Mean Corpuscular Volume 86.4 fL (80.0-98.0); Mean Platelet Volume 9.9 fL (9.4-12.4); Platelet Count 199 X10*3/uL (160-400); Red Blood Count 4.92 X10*6/uL (4.60-5.80); Red Cell Distribution Width 12.5 % (11.0-16.0); White Blood Count 7.7 X10*3/uL (4.8-10.8)
[2024-06-28 07:01] LABS: Anion Gap 11 (12-20); Blood Urea Nitrogen 13 mg/dL (9-16); Calcium 8.9 mg/dL (8.4-10.2); Carbon Dioxide 25 mmol/L (22-29); Chloride 103 mmol/L (96-108); Creatinine Clr Calc Pharmacy 120.1; Estimated Glomerular Filt Rate > 60; Glucose Random 251 mg/dL (60-115); Potassium 4.3 mmol/L (3.3-5.1); Sodium 135 mmol/L (135-145)
[2024-06-28 07:18] LABS: Glucose, Whole Blood 254 mg/dL (60-115)
[2024-06-28] MEDS: Atorvastatin Calcium 80 MG TABLET PO (07:20)
[2024-06-28] MEDS: glipiZIDE 10 MG TABLET PO (07:20)
[2024-06-28] MEDS: Apixaban 5 MG TABLET PO (07:20)
[2024-06-28] MEDS: Insulin Lispro 100 UNIT/ML 3 ML VIAL SUBCUT ×2 (07:20→11:59)
[2024-06-28] MEDS: SITagliptin Phosphate 100 MG TABLET PO (07:21)
[2024-06-28] MEDS: Acetaminophen 325 MG TABLET 650 MG PO (07:21)
[2024-06-28] MEDS: 0.9 % Sodium Chloride Flush 3 ML SYRINGE IVFLUSH (07:23)
[2024-06-28 07:34] VITALS: BP 136/66; PULSE 18; RESP 18; TEMP 36.9; O2SAT 96
[2024-06-28 11:10] LABS: Glucose, Whole Blood 299 mg/dL (60-115)
--- NOTE | 2024-06-28 11:46 | MHC.CM.PN ---
PT CLEARED TO DC HOME TODAY WITH NO SERVICES VIA PRIVATE TRANSPORT
--- NOTE | 2024-06-28 12:59 | PM.DS ---
DS: Providers Provider Date of Service: 06/28/24 Date of admission: 06/26/24 06:35 Date of discharge: 06/28/24 Primary care physician: Unknown Physician Consults: 06/26/24 11:55 Consult to Vascular Surgery Routine Consulting Provider: [facility] Reason for consultation: left leg thrombus Has provider been notified: No DS: Diagnosis Discharge Diagnosis (1) DVT (deep venous thrombosis): Status: Acute (2) Acute hyperglycemia: Status: Acute (3) Cellulitis of left leg: Status: Acute DS: Summary Hospital Course Hospital Course: History of presenting illness: Date of Service: 06/26/24 Chief Complaint: left leg swelling A 49-year-old male with a history of diabetes mellitus and left lower extremity DVT diagnosed on 04/10/2024 was prescribed Eliquis but did not start taking it until May, mistakenly believing he was uninsured, despite [facility]. He presented with pain, swelling, erythema, and increased warmth in the left lower extremity for three days. He denied fever or chills. Heart rate was 104, WBC 12, meeting sepsis criteria. Vital signs showed tachycardia but no fever. A duplex ultrasound of the left lower extremity showed an unchanged chronic clot from 04/10/2024. The patient is being treated with Zosyn 4.5 g IV. Hospital course: 49 year male morbidly obese with non insulin dependent diabetes, DVT dagnosed in 2023 but did start eliquis until a month later admitted for left lower extremity cellulitis . Sepsis d/t cellulitis of the left leg, treated with IV vancomycin, WBC normalized blood culture showed no growth had normal lactic acid since left leg redness and swelling significantly improved he is being discharged home on Augmentin 1 tablet twice daily for 7 days recommend to keep leg elevated and have better blood sugar control . Diabetes with hyperglycemia, Hemoglobin A1c 13 on 04/2024, blood sugars around 250s, recommend to continue all home medication glipizide 10 mg b.i.d., Januvia 100 mg daily and metformin 1000 b.i.d. 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 continue eliquis 5 mg b.i.d. Spoke with vascular surgery not a candidate for thrombectomy. Time Attestation Discharge Coordination Time (in mins): 40 Quality: Safe Use of Opioids Does Pt have an Active Cancer Diagnosis on the Problem List?: No Quality: Stroke Does the patient have a stroke diagnosis?: No Physical Exam Vital Signs: Vital Signs: Last Vital Signs Temp 98.5 F 06/28/24 07:34 Pulse 18 L 06/28/24 07:34 Resp 18 06/28/24 07:34 BP 136/66 06/28/24 07:34 Pulse Ox 96 06/28/24 07:34 O2 Del Method Room Air 06/28/24 07:34 BMI result Body Mass Index 39.3 Const: Other: General resting comfortably in no acute distress. Anicteric sclera Neck no JVD. CVS regular rate rhythm, Respiratory lungs clear to auscultation, no respiratory distress, no wheeze, no rhonchi. Gastrointestinal abdomen soft, non tender, bowel sounds audible Extremities left lower extremity redness and swelling improved significantly, but some redness persists mid leg. Neuro non focal Skin no rash Appropriate affect. DS: Data Data Completed and Pending Labs on day of discharge: Laboratory Results - last 24 hr 06/27/24 06/27/24 06/27/24 16:16 18:55 20:34 WBC RBC Hgb Hct MCV MCH MCHC RDW Plt Count MPV Absolute Nucleated RBC Nucleated RBC % (auto) Sodium Potassium Chloride Carbon Dioxide Anion Gap BUN Creatinine Estim Creat Clear Calc Estimated GFR POC Glucose 255 H 330 H Random Glucose Calcium Vancomycin Trough 8.0 L 06/28/24 06/28/24 06/28/24 06:19 07:13 11:06 WBC 7.7 RBC 4.92 Hgb 14.8 Hct 42.5 MCV 86.4 MCH 30.1 MCHC 34.8 RDW 12.5 Plt Count 199 MPV 9.9 Absolute Nucleated RBC 0.000 Nucleated RBC % (auto) 0.0 Sodium 135 Potassium 4.3 Chloride 103 Carbon Dioxide 25 Anion Gap 11 L BUN 13 Creatinine 1.02 Estim Creat Clear Calc 120.1 Estimated GFR > 60 POC Glucose 254 H 299 H Random Glucose 251 H Calcium 8.9 Vancomycin Trough Preliminary micro results at discharge 06/26/24 06:15 Blood Culture - Preliminary Blood - Venous No growth after 48 hours. 06/26/24 06:07 Blood Culture - Preliminary Blood - Venous No growth after 48 hours. Discharge Plan Discharge Anticipated Discharge Date/Time: 06/28/24 11:08 Patient Disposition: Home, Self-Care Discharge Diagnosis: Left lower extremity cellulitis Chronic left lower extremity DVT Referrals: Physician,Unknown J [Primary Care Provider] - 1 Week Discharge Medications: New amoxicillin-pot clavulanate 875-125 mg tablet 1 tab PO BID Qty: 14 0RF Continued Eliquis 5 mg tablet 5 mg PO Q12H 30 Days Qty: 60 6RF metformin 500 mg Tablet 1,000 mg PO BID lisinopril 5 mg Tablet 5 mg PO DAILY glipizide 5 mg Tablet 10 mg PO BID rosuvastatin 40 mg Tablet 40 mg PO DAILY sitagliptin 100 mg Tablet 100 mg PO DAILY Discharge Orders: Discharge Order (Routine); Ordered 06/28/24 Ordered By: Ermelinda Gilbert Diet: Diabetic diet Activity on Discharge: As tolerated Stand Alone Forms: Patient Portal Discharge page Print Language: Persian Care Plan Goals: Continue Eliquis 1 tablet twice daily for DVT Take Augmentin 1 tablet twice daily for 7 days for left lower extremity cellulitis, keep leg elevated In regard to elevated blood sugars due to diabetes mellitus strongly recommend to follow low-calorie diabetic diet Health Concerns: Diabetes mellitus BMI greater than 39 Plan of Treatment: Outpatient follow up with primary care physician and with endocrinology to adjust medications for elevated blood sugars Assessment: As above Patient Instructions: Apixaban (By mouth), Cellulitis (DC), Deep Vein Thrombosis (DC), Deep Vein Thrombosis Prevention (DC) Discharge Date/Time: 06/28/24 12:47
== END 2024-06-28 12:47 | disposition home or self-care (01) | DRG 872 ==
LOC: HO.ED 06-26 06:07 → HO.EDOVER 06-26 06:43 → HO.S3 06-26 19:40
PROVIDERS: Admitting Provider Internal Medicine; Emergency Provider Emergency Medicine Emergency Medical Services; PCP Hospitalist; Visit Provider Hospitalist
DX: A41.9 Sepsis, unspecified organism (principal); I82.512 Chronic embolism and thrombosis of left femoral vein; I82.532 Chronic embolism and thrombosis of left popliteal vein; L03.116 Cellulitis of left lower limb; E78.5 Hyperlipidemia, unspecified; I10 Essential (primary) hypertension; E11.65 Type 2 diabetes mellitus with hyperglycemia; E66.01 Morbid (severe) obesity due to excess calories; Z68.39 Body mass index [BMI] 39.0-39.9, adult; Z87.891 Personal history of nicotine dependence; Z79.01 Long term (current) use of anticoagulants; Z79.84 Long term (current) use of oral hypoglycemic drugs; Z79.899 Other long term (current) drug therapy
CPT/HCPCS: 36415; 80048; 80053; 80202; 82565; 82947; 83605; 85025; 85027; 87040; 93971; 99285; J2543; J3370; J3371

== ENCOUNTER → 2024-06-26 02:45 | Outpatient (BNV) | payer SELFPAY | PROVIDERS: Visit Provider General Practice | DX: I82.412 Acute embolism and thrombosis of left femoral vein (principal); I82.432 Acute embolism and thrombosis of left popliteal vein | CPT/HCPCS: 93971 ==

== ENCOUNTER → 2024-06-26 06:35 | Outpatient (BNV) | payer OTHER, SELFPAY | PROVIDERS: Admitting Provider Internal Medicine; Emergency Provider Emergency Medicine Emergency Medical Services; Visit Provider Surgery Vascular Surgery | DX: I82.412 Acute embolism and thrombosis of left femoral vein (principal) | CPT/HCPCS: 99222 ==

== ENCOUNTER → 2024-06-26 06:35 | Outpatient (BNV) | payer OTHER, SELFPAY | PROVIDERS: Admitting Provider Internal Medicine; Emergency Provider Emergency Medicine Emergency Medical Services; Visit Provider Hospitalist | DX: L03.116 Cellulitis of left lower limb (principal); E11.621 Type 2 diabetes mellitus with foot ulcer; L97.509 Non-pressure chronic ulcer of other part of unspecified foot with unspecified severity; I82.412 Acute embolism and thrombosis of left femoral vein | CPT/HCPCS: 99223; 99232; 99239; 99499 ==

== ENCOUNTER 2025-02-20 16:28 | Emergency (ER) | payer OTHER, SELFPAY ==
--- NOTE | ~2025-02-20 | XR_ITS ---
CLINICAL HISTORY: cough x weeks Chest Radiographs, 2 views Comparison: None available Findings: No cardiomegaly. Normal mediastinal contours. No pneumothorax. No opacity. No pleural effusion. Normal upper abdomen. No acute fracture. Impression: No acute findings. This document has been electronically signed by: Lauren Quintana MD on 02/20/2025 17:33:02
[2025-02-20 16:49] VITALS: BP 150/74; PULSE 120; RESP 18; TEMP 36.6; O2SAT 95; BMI 38.2
--- NOTE | 2025-02-20 16:49 | ED.GENADULT ---
HPI - General Adult General Chief complaint: Upper Respiratory Symptoms Stated complaint: bronchitis for 2wks/oxygen down to 82-92 Time Seen by Provider: 02/20/25 20:20 Source: patient Mode of arrival: ambulatory Limitations: no limitations History of Present Illness ED Provider: Dr. Naranjo HPI narrative: 49-year-old male history of bronchitis recently completed Z-Gordon course on Tessalon Perles presented hospital today for persistent cough. Patient has been using albuterol inhaler with some alleviation. However his cough has been persistent. It is productive in nature. Related Data Home Medications ?Medication ?Instructions ?Recorded ?Confirmed glipizide 5 mg tablet 10 mg PO BID 06/26/24 06/26/24 lisinopril 5 mg tablet 5 mg PO DAILY 06/26/24 06/26/24 metformin 500 mg tablet 1,000 mg PO BID 06/26/24 06/26/24 rosuvastatin 40 mg tablet 40 mg PO DAILY 06/26/24 06/26/24 sitagliptin 100 mg tablet 100 mg PO DAILY 06/26/24 06/26/24 Previous Rx's ?Medication ?Instructions ?Recorded apixaban 5 mg tablet (Eliquis) 5 mg PO Q12H 30 days #60 tabs 04/10/24 amoxicillin 875 mg-potassium 1 tab PO BID #14 tabs 06/28/24 clavulanate 125 mg tablet codeine 7.5 mg-guaifenesin 225 5 ml PO Q6H PRN cough #473 mL 02/20/25 mg/5 mL oral liquid prednisone 50 mg tablet 50 mg PO DAILY 7 days #7 tabs 02/20/25 Allergies Allergy/AdvReac Type Severity Reaction Status Date / Time No Known Allergies Allergy Verified 02/20/25 16:55 Review of Systems Review of Systems: Pertinent review of systems as mentioned in HPI. All other system otherwise negative. [facility] Past Medical History [facility] Narrative: DVT, hyperglycemia, cellulitis, bronchitis Medical History (Updated 02/20/25 @ 21:52 by Jessie Naranjo DO) Hernia Diabetes Surgical History (Updated 04/10/24 @ 09:16 by Beatris Whelan RN) H/O adenoidectomy Social History Social History Household Members: Family Housing: Apartment Do you presently have visiting nurse or other home services: No Patient Tobacco Use Status: Former Tobacco user Tobacco use type: Cigarette Second Hand Smoke Exposure: No Advance Directives: Yes Advance Directives on File: Yes Advance Directives Date on File: 06/26/24 service: Yes Physical Exam ED Exam Exam: General: Pleasant, no distress, interacting appropriately Head: Normacephalic, atraumatic ENT: oral mucosa moist, neck supple, no tracheal deviation Cardiovascular: regular rate, regular rhythm, no murmurs, rubbing, gallops Respiratory: Diminished lung sounds bilaterally Neurological: Awake and alert, no facial droop noted Skin: Warm and dry Psychiatric: Appropriate mood and thoughts Vital Signs: Vital Signs - 24 hr 02/20/25 16:49 02/20/25 21:09 02/20/25 22:02 Temperature 97.9 F 0 F L Pulse Rate 120 H 100 100 Respiratory Rate 18 20 20 Blood Pressure 150/74 H 00/00 L Pulse Oximetry 95 Oxygen Delivery Method Room Air BMI result Body Mass Index 38.2 Course Course Course Narrative: This is a rapid medical exam performed by Zee Wilson NP: Additional HPI, ROS, PE not included below will be deferred to primary provider. Patient is a 49y/o M with history of DVT currently on Eliquis presenting with complaint of ongoing cough and dyspnea for the past few weeks. Recently treated with azithromycin but did not improve. States cough is occasionally productive of clear/yellow sputum. Tingling to left hand but denies chest pain. Plan: EKG, labs, CXR Medications Administered Discontinued Medications Generic Name Dose Route Start Last Admin Trade Name Freq PRN Reason Stop Dose Admin Albuterol/Ipratropium 3 ml 02/20/25 20:35 02/20/25 21:10 Albuterol/Iprat 2.5/0.5mg 3 Ml Ampul.Neb INHALE 02/20/25 20:36 3 ml ONCE ONE Administration Guaifenesin/Codeine Phosphate 5 ml 02/20/25 20:36 02/20/25 20:53 Guaifen/Codeine Sf 200/20/10ml 10 Ml Liquid PO 02/20/25 20:37 5 ml ONCE ONE Administration Prednisone 50 mg 02/20/25 20:35 02/20/25 20:52 Prednisone 10 Mg Tablet PO 02/20/25 20:36 50 mg ONCE ONE Administration Medical Decision Making Medical Decision Making MDM Narrative: 49-year-old male presented hospital today for persistent cough. I did give patient a dose of cough syrup. The patient's x-ray did not show any signs of pneumonia. We will plan to give patient some breathing treatment at this time. We will plan to give patient dose of prednisone here. On reassessment patient stated that his breathing has improved. Lab work did not show any signs of leukocytosis. Chest x-ray did not show any sign consolidation. Suspect patient likely had persistent bronchitis. We will plan to discharge patient with a week course of prednisone to take. 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 Differential Diagnosis Differential Diagnoses: The differential diagnosis associated with the presentation includes Bronchitis, pneumonia, COPD Lab Data MDM Lab Attestation statement: I reviewed the patient's lab results. 02/20/25 18:01 02/20/25 18:01 Labs: Lab Results 02/20/25 Range/Units 18:01 WBC 10.8 (4.8-10.8) X10*3/uL RBC 5.51 (4.60-5.80) X10*6/uL Hgb 16.1 (14.0-18.0) g/dl Hct 47.5 (42.0-52.0) % MCV 86.2 (80.0-98.0) fL MCH 29.2 (27.0-33.0) pg MCHC 33.9 (31.0-36.0) g/dl RDW 12.8 (11.0-16.0) % Plt Count 275 D (160-400) X10*3/uL MPV 10.3 (9.4-12.4) fL Immature Gran % (Auto) 0.3 (0.0-0.4) % Neut % (Auto) 76.4 H (45-73) % Lymph % (Auto) 13.1 L (20-40) % [place] % (Auto) 8.1 (2-11) % Eos % (Auto) 1.6 (0-4) % Baso % (Auto) 0.5 (0-2) % Lymph # (Auto) 1.4 (1.2-4.9) X10*3/uL [place] # (Auto) 0.9 (0.1-1.2) X10*3/uL Eos # (Auto) 0.2 (0.0-0.4) X10*3/uL Baso # (Auto) 0.1 (0.0-0.2) X10*3/uL Abs Immat Gran (auto) 0.03 (0.00-0.03) X10*3/uL Absolute Neuts (auto) 8.3 (2.0-8.3) x10*3/uL Absolute Nucleated RBC 0.000 (0.0-0.012) X10*3/uL Nucleated RBC % (auto) 0.0 (0.0-0.2) /100WBC PT 12.8 H (10.9-12.4) SEC INR 1.1 (0.9-1.1) Sodium 137 (135-145) mmol/L Potassium 4.6 (3.3-5.1) mmol/L Chloride 103 (96-108) mmol/L Carbon Dioxide 21 L (22-29) mmol/L Anion Gap 18 (12-20) BUN 20 H (9-16) mg/dL Creatinine 1.35 (0.5-1.4) mg/dL Estim Creat Clear Calc 92.0 Estimated GFR 56 Random Glucose 312 H (60-115) mg/dL Calcium 9.6 D (8.4-10.2) mg/dL Total Bilirubin 0.5 (0.0-1.0) mg/dL AST 28 (5-37) U/L ALT 50 H (0-40) U/L Alkaline Phosphatase 66 (39-117) U/L Troponin I High Sens < 2.7 (<3.5-35.0) ng/L Total Protein 7.6 (6.5-8.0) g/dL Albumin 4.9 (3.5-5.0) g/dL COVID-19 (KIMBERLY) Negative (Negative) COVID-19 Clin Com See Note Influenza Type A (ALFREDO) Negative (Negative) Influenza Type B (ALFREDO) Negative (Negative) Influenza A & B Note See Note Independent Interpretation I performed an independent interpretation of an: Plain X-Ray Radiology Impression Discussion of test interpretation with radiology: I have reviewed the radiologist's reading. Discharge Plan Discharge Clinical Impression: Bronchitis Patient Disposition: Home, Self-Care Instructions: Chronic Bronchitis (ED) Prescriptions: New codeine-guaifenesin 7.5-225 mg/5 mL liquid 5 ml PO Q6H PRN (Reason: cough) Qty: 473 0RF prednisone 50 mg tablet 50 mg PO DAILY 7 Days Qty: 7 0RF No Action Eliquis 5 mg tablet 5 mg PO Q12H 30 Days Qty: 60 6RF metformin 500 mg Tablet 1,000 mg PO BID lisinopril 5 mg Tablet 5 mg PO DAILY glipizide 5 mg Tablet 10 mg PO BID rosuvastatin 40 mg Tablet 40 mg PO DAILY sitagliptin 100 mg Tablet 100 mg PO DAILY amoxicillin-pot clavulanate 875-125 mg tablet 1 tab PO BID Qty: 14 0RF Interventions: ED Discharge Assessment Last Done: 02/20/25 22:02 Discharge Date/Time: 02/20/25 22:03 Print Language: Ivorian
--- NOTE | 2025-02-20 16:54 | ECG_ITS ---
Test Reason : SOB Blood Pressure : */* mmHG Vent. Rate : 111 BPM Atrial Rate : 111 BPM P-R Int : 146 ms QRS Dur : 82 ms QT Int : 320 ms P-R-T Axes : 47 38 52 degrees QTcB Int : 435 ms Sinus tachycardia Otherwise normal ECG No previous ECGs available Referred By: Tiki Wilson Electronically Signed By: Stanton Mathew
[2025-02-20 18:08] LABS: MANUAL DIFF FLAG NO
[2025-02-20 18:09] LABS: Hematocrit 47.5 % (42.0-52.0); Hemoglobin 16.1 g/dl (14.0-18.0); Imm Gran Abs Auto 0.03 X10*3/uL (0.00-0.03); Imm Gran Pct Auto 0.3 % (0.0-0.4); Lymphocytes Absolute Auto 1.4 X10*3/uL (1.2-4.9); Mean Corpuscular HGB Conc 33.9 g/dl (31.0-36.0); Mean Corpuscular Hemoglobin 29.2 pg (27.0-33.0); Mean Corpuscular Volume 86.2 fL (80.0-98.0); NRBC Abs Auto 0.000 X10*3/uL (0.0-0.012); NRBC Pct Auto 0.0 /100WBC (0.0-0.2); Platelet Count 275 X10*3/uL (160-400); Red Blood Count 5.51 X10*6/uL (4.60-5.80); White Blood Count 10.8 X10*3/uL (4.8-10.8)
[2025-02-20 18:16] LABS: INTERNATIONAL NORM RATIO 1.1 (0.9-1.1); Prothrombin Time 12.8 SEC (10.9-12.4)
[2025-02-20 18:22] LABS: Alanine Aminotransferase 50 U/L (0-40); Albumin Level 4.9 g/dL (3.5-5.0); Alkaline Phosphatase 66 U/L (39-117); Anion Gap 18 (12-20); Aspartate Amino Transferase 28 U/L (5-37); Blood Urea Nitrogen 20 mg/dL (9-16); Calcium 9.6 mg/dL (8.4-10.2); Carbon Dioxide 21 mmol/L (22-29); Chloride 103 mmol/L (96-108); Creatinine Clr Calc Pharmacy 92.0; Estimated Glomerular Filt Rate 56; Potassium 4.6 mmol/L (3.3-5.1); Sodium 137 mmol/L (135-145); Total Protein 7.6 g/dL (6.5-8.0)
[2025-02-20 18:23] LABS: COVID-19 Test Negative (Negative); IDNOW Serial# 55D5AD1C; IDNOW Serial# 58CA691E; Influenza B2 Negative (Negative)
[2025-02-20 18:31] LABS: Troponin-I High Sensitivity < 2.7 ng/L (<3.5-35.0)
--- OUTSIDE RECORDS SUMMARY | 2025-02-20 19:57 | XMS_ITS | Encounter Summary ---
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
--- OUTSIDE RECORDS SUMMARY | 2025-02-20 19:57 | XMS_ITS | Encounter Summary ---
Author Organization [facility] Address [address] [place] [address] Care Team Providers Care Accounting Specialist Name Role Phone Edelmira Sage MD Primary Care Provider [phone] Encounter Details Date Type Department Care Team ([facility] st Contact Info) Description 08/18/2021 Community Orders [facility] EpicCare Link [address] [place] [address] Pantera Campos MD [address] [place] [address] [place] [id number] Type 2 diabetes, uncontrolled, with neuropathy (CMS/HCC) (HCC) (Primary Dx); Mixed hyperlipidemia; Vitamin D deficiency disease; Type II diabetes mellitus with coma, uncontrolled (CMS/HCC) (HCC); Morbidly obese Social History Tobacco Use Types Packs/Day Years [...] obesity documented in this encounter Care Teams Accounting Specialist Relationship Specialty Start Date End Date Alona, Edelmira A, MD PCP - General Family Medicine 08/23/21 documented as of this encounter
--- OUTSIDE RECORDS SUMMARY | 2025-02-20 19:57 | XMS_ITS | Encounter Summary ---
Author Organization [facility] Address [address] [place] [address] Care Team Providers Care Dietitian Therapeutic Name Role Phone Edelmira Sage MD Primary Care Provider Encounter Details Date Type Department Care Team ([facility] st Contact Info) Description 03/22/2021 Community Orders [facility] EpicCare Link [address] [place] [address] Pantera Campos MD [address] [place] [address] [place] [address] Routine general medical examination at a health [...] Primary documented in this encounter Care Teams Dietitian Therapeutic Relationship Specialty Start Date End Date Edelmira Sage MD PCP - General Family Medicine 08/23/21 documented as of this encounter
--- OUTSIDE RECORDS SUMMARY | 2025-02-20 19:57 | XMS_ITS | Clinical Summary ---
Author Organization [facility] Address [address] [place] [address] Care Team Providers Care Manager Six Sigma Name Role Phone Edelmira Sage MD Primary Care Provider [phone] Allergies Active Allergy Reactions Criticality Noted Date [...] mg daily Active flash glucose scanning reader (Tarisa[employer] Venus 14 Day [place]) [facility] Use as directed. 1 each 0 Active [...] hyperglycemia, without long-term current use of insulin Use as directed. 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 file Not on file Last Filed Vital Signs Vital Sign Reading Time Taken Comments Blood Pressure 132/81 01/29/2023 3:19 PM EDT Pulse 88 01/29/2023 3:19 PM EDT Temperature 36.1 C (97 F) 01/29/2023 3:19 PM EDT Respiratory Rate 16 [...] Additional history exists Hemoglobin A1C 07/16/2022 04/17/2022, 12/0 11/2021, 09/26/2021, Additional history exists Pneumococcal Vaccine: 50+ Ye ars (2 of 2 - PPSV23, PCV20, or PCV21) 03/23/2023 03/23/2022 Zoster Vaccines (1 of 2) 2023 DTaP,Tdap,and Td Vaccines (2 - Td or Tdap) 12/08/2023 12/07/2013 Basic Metabolic Panel 01/30/2024 01/29/2023 , 07/12/2020, 03/20/2019, Additional history exists Alcohol/Substance Use Screening 05/06/2024 Depression Screening and Follow-Up 05/06/2024 Social Drivers of Health Erna ual Screening 05/06/2024 Colonoscopy 08/18/2024 08/18/2021 COVID-19 Vaccine (2 - 2024-2 6 season) 2025 09/08/2020 Influenza Vaccine (#1) 2025 2, 03/17/2021, 03/15/2020, Additional history exists RSV Vaccine (60+ years old a nd patients) (1 - 1-dose 75+ series) 2048 Hepatitis C Screening Completed 09/26/2011 Procedures * Due to [place] [employer] law, this organization might not be sharing negative HIV tests. Procedure Name Priority Date/Time Associated Diagnosis Comments BASIC METABOLIC PANEL STAT 01/29/2023 3:29 PM EDT POCT GLYCOSYLATED HEMOGLOBIN (HGB A1C) Routine 04/17/2022 8:04 AM EST Type 2 diabetes mellitus with hyperglycemia, without long-term current use of insulin COLONOSCOPY 08/18/2021 MICROALBUMIN, RANDOM URINE WITH CREATININE Routine 07/12/2020 9:14 AM EST Type 2 diabetes mellitus without complication, without long-term current use of insulin Albuminuria Mixed dyslipidemia Class 3 severe obesity due to excess calories with serious comorbidity and body mass index (BMI) of 40.0 to 44.9 in adult HEPATITIS C ANTIBODY, CONVERSION Routine 09/26/2011 8:38 AM EDT from Last 3 Months or Most Recently Relevant to Health Maintenance Results * Due to [place] [employer] law, this organization might not be sharing negative HIV tests. * (ABNORMAL) Basic Metabolic Panel (01/29/2023 3:29 PM EDT) NA 135(L) 136 - 145 mmol/L 01/29/2023 4:32 PM EDT [facility] K 4.0 3.5 - 5.3 mmol/L 01/29/2023 4:32 PM EDT [facility] Cl 105 98 - 107 mmol/L 01/29/2023 4:32 PM EDT [facility] CO2 23 22 - 30 mmol/L 01/29/2023 4:32 PM EDT [facility] BUN 17 7 - 18 mg/dL 01/29/2023 4:32 PM EDT [facility] Creatinine 1.10 0.60 - 1.30 mg/dL 01/29/2023 4:32 PM EDT [facility] Glucose 118(H) 70 - 99 mg/dL 01/29/2023 4:32 PM EDT [facility] Calcium 9.1 8.5 - 10.1 mg/dL 01/29/2023 4:32 PM EDT [facility] Anion Gap 7 5 - 15 01/29/2023 4:32 PM EDT [facility] eGFR 82 >=60 mL/min/1 .73m2 01/29/2023 4:32 PM EDT [facility] Comment:The estimated glomer ular filtration rate [...] 3:29 PM EDT 01/29/2023 3:37 PM EDT Abhishek Guzman MD LAB BLOOD ORDERABLES Final Result Performing Organization Address [facility] Co de Phone Number [facility] [address] [place] [phone], [place] * (ABNORMAL) POCT Glycosylated Hemoglobin (HGB A1C), interfaced (04/17/2022 8:04 AM EST) Hemoglobin A1C, POCT 10.9(H) <=5.6 % 04/17/2022 8:18 AM EST [facility] Comment: A1C Recommendation for Non- Adults with Diabetes: <7.0% ADA 2011 Standards of Medical Care in Diabetes Blood 04/17/2022 8:04 AM EST 04/17/2022 8:18 AM EST us Lizbet Christian MD LAB POCT ORDERABLES - DEVIC E Final Result Performing Organization Address [facility] Co de Phone Number [facility], [facility] [address] [place] [address], [place] * COLONOSCOPY (08/18/2021) Narrative Procedure Note Dutch Andujar MD - 08/18/2021 12:17 PM EDT Gastroenterology Patient Name: Suresh Thompson Procedure Date: 08/18/2021 12:17 PM Date of : 1975 Admit Type: Outpatient Age: 46 Room: [facility] 01 Gender: Male Note Status: Finalized Attending [...] verified by the physician,the nurse and the surveying technician in the endoscopy suite. Mental Status [...] 0 Note Initiated On: 08/18/2021 12:17 PM Dutch Andujar MD PR[employer]ATION PROCEDURE S Final Result * (ABNORMAL) Microalbumin, Random Urine with Creatinine (07/12/2020 9:14 AM EST) Microalbumin, Urine 14.0(H) 0.0 - 3.0 mg/dL 07/12/2020 10:18 AM EST [facility] Creatinine, Urine 147 30 - 150 mg/dL 07/12/2020 10:18 AM EST [facility] Microalb/Crea t Ratio, Random Urine 95.2(H) <30.0 mcg/mgCr 07/12/2020 10:18 AM EST [facility] Urine Voided urine specimen / Unknown Non-Blood Collection / Unknown 07/12/2020 9:14 AM EST 07/12/2020 9:20 AM EST Lizbet Christian MD LAB URINE ORDERABLES Final Result [facility] [address] [place] [address], * HEPATITIS C ANTIBODY, CONVERSION (09/26/2011 8:38 AM EDT) Hepatitis C Antibody 0.18 <1.00 IV [facility] Comment: Negative Not infected with HCV, unless recent infection is suspected or other evidence exists to indicate HCV infection. 09/26/2011 8:38 AM EDT 09/26/2011 10:39 PM EDT us Alexandr Hammond LAB HISTORICAL RESULTS Final Res ult [facility] [address] [place] [id number], from Last 3 Months or Most Recently Relevant to Health Maintenance Care Teams Manager Six Sigma Relationship Specialty Start Date End Date Edelmira Sage MD PCP - General Family Medicine 08/23/21
--- OUTSIDE RECORDS SUMMARY | 2025-02-20 19:57 | XMS_ITS | Encounter Summary ---
Author Organization [facility] Address [address] [place] [address] Care Team Providers Care Mainframe Analyst Name Role Phone Edelmira Sage MD Primary Care Provider [phone] Encounter Details Date Type Department Care Team (Late st Contact Info) Description 03/03/2021 [employer] Message [facility] [address] [id number] Kendell Nam, PA [address] [place] [id number] Leg swollen Social History Tobacco Use Types [...] on filedocumented in this encounter Care Teams Mainframe Analyst Relationship Specialty Start Date End Date Edelmira Sage MD PCP - General Family Medicine 08/23/21 documented as of this encounter
--- OUTSIDE RECORDS SUMMARY | 2025-02-20 19:57 | XMS_ITS | Encounter Summary ---
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
--- OUTSIDE RECORDS SUMMARY | 2025-02-20 19:58 | XMS_ITS | Clinical Summary ---
Author Organization [facility] Address [address] [place] [id number] Phone Care Team Providers Care Avionics Systems Technician Name Role Phone Pcp, Unknown Primary Care Provider Unavailabl e Allergies Active Allergy Reactions Criticality Noted Date Comments Empagliflozin Other (See Comments) High 11/13/2022 Medications apixaban (ELIQUIS) 5 mg (74 tabs) tablets in DVT/PE starter pack Take by mouth as directed. Take 10mg by mouth twice daily for 7 days followed by 5mg twice daily. 74 tablet 05/12/2024 Active Social History Tobacco Use Types Packs/Day Years Used Date Smoking Tobacco: Never Assessed Education Answer Date Recorded Are you interested in more education? Not on kalie e 05/12/2024 Are you concerned about learning? Not on file 05/12/2024 No 05/12/2024 No 05/12/2024 Digital Access Answer Date Recorded No 05/12/2024 No 05/12/2024 Reliable internet access at home? Not on file 05/12/2024 Device with a working camera? Not on file Intimate Partner Violence Answer Date R ecorded Are you denied basic needs s uch as food, clothing, or medical care? No 05/11/2024 In the past 12 months have y ou been in a relationship with a person who hurts, threatens, or tries to control you? No 05/11/2024 Are you denied basic needs s uch as food, clothing, or medical care? No 05/11/2024 In the past 12 months have y ou been in a relationship with a person who hurts, threatens, or tries to control you? No 05/11/2024 Sex and Gender Information Value Date Recorded Sex Assigned at Male 05/12/2024 12:07 AM EST Legal Sex Male 7:18 PM EST Gender Identity Male 05/12/2024 12:07 AM EST Sexual Orientation Straight 05/12/2024 12 :07 AM EST Last Filed Vital Signs Vital Sign Reading Time Taken Comments Blood Pressure 134/80 05/11/2024 11:20 PM EST Pulse 97 05/11/2024 11:20 PM EST Temperature 36.5 C (97.7 F) 05/11/2024 11:20 PM EST Respiratory Rate 20 05/11/2024 11:2 0 PM EST Oxygen Saturation 97% 05/11/2024 11: 20 PM EST Inhaled Oxygen Concentration - - Weight 135.1 kg (297 lb 12.8 oz) 05/11/2024 7:23 PM EST Height 185.4 cm (6' 1 ) 05/11/2024 7:23 PM EST Body Mass Index 39.29 05/11/2024 7:23 PM EST Plan of Treatment Health Maintenance Due Date Last Done Comments Adult Td,Tdap Booster 1973 CREATININE LEVEL 1973 DEPRESSION SCREENING 1985 SMOKING Hx and SMOKELESS TOBACCO SCREENING 1986 HEPATITIS C SCREENING 1991 HIV ONE-TIME SCREENING (18-65 YEARS) 1991 COLOGUARD 2018 COLONOSCOPY 2018 COLORECTAL CANCER SCREENING 2018 FIT TEST 2018 FOBT 2018 SIGMOIDOSCOPY 2018 VIRTUAL COLONOSCOPY 2018 PNEUMOCOCCAL VACCINES (50+ years) (1 of 1 - PCV) 2023 ZOSTER VACCINES (1 of 2) 2023 INFLUENZA VACCINE (#1) 2024 COVID-19 VACCINE ( - 2024- season) 2025 SCREENING FOR DIABETES 04/17/2025 04/17/2022 LIPID PANEL 07/12/2025 07/12/2020, 03/06, 10/30/2018, Additional history exists RSV VACCINE (1 - 1-dose 75+ series) 2048 HEPATITIS A VACCINES Aged Out No long er eligible based on patient's age to complete this topic HIB VACCINES Aged Out No longer eligi ble based on patient's age to complete this topic MENINGOCOCCAL VACCINES (ACWY) Aged Out No longer eligible based on patient's age to complete this topic MENINGOCOCCAL VACCINES (B) Aged Out N o longer eligible based on patient's age to complete this topic Medical Devices Not on file Insurance Care Teams Avionics Systems Technician Relationship Specialty Start Date End Date Pcp, Unknown PCP - General 05/11/24 Additional Source Comments The information contained in this document represents components of the legal health record. It is not the complete legal health record.[facility]
--- OUTSIDE RECORDS SUMMARY | 2025-02-20 19:58 | XMS_ITS | Clinical Summary ---
Author Organization [facility] ity Address [address] [place] [address] Care Team Providers Care Streetcar Dispatcher Name Role Phone Unavailable Primary Care Provider Unavailabl e Social History Tobacco Use Types Packs/Day Years Used Date Smoking Tobacco: Never Assessed Sex and Gender Information Value Date Recorded Sex Assigned at Not on file Legal Sex Male 8:16 PM EST Gender Identity Not on file Sexual Orientation Not on file Plan of Treatment Health Maintenance Due Date Last Done Comments Colorectal Cancer Screening: Colonoscopy 1973 DTaP,Tdap,and Td Vaccines (1 - Tdap) 1992 Hepatitis B Vaccines (1 of 3 - 19+ 3-dose series) 1992 Cholesterol Screening (Lipid Panel) 05/30/2023 HIV Screening 05/30/2023 Hepatitis C Screening 05/30/2023 Social Influencers of Health Screening 05/30/2023 Pneumococcal Vaccine: 50+ Ye ars (1 of 1 - PCV) 2023 Zoster Vaccines (1 of 2) 2023 Depression Screening 05/06/2024 COVID-19 Vaccine (1 - 2023-2 5 season) 2025 Influenza Vaccine (#1) 2025 RSV Immunization Adult Patie nts (1 - 1-dose 75+ series) 2048 HIB Vaccines Aged Out No longer eligi [...] age to complete this topic Meningococcal B Vaccine Aged Out No l onger eligible based on patient's age to complete this topic RSV Immunization Patients Un qamar 20 months Aged Out No longer eligible b ased on patient's age to complete this topic Varicella Vaccines Aged Out No longer eligible based on patient's age to complete this topic
--- OUTSIDE RECORDS SUMMARY | 2025-02-20 19:58 | XMS_ITS | Clinical Summary ---
Author Organization [facility] Address [address] [address] Care Team Providers Care Him Manager Name Role Phone Unavailable Primary Care Provider [...] (1 of 3 - 19+ 3-dose series) 06/23 Colorectal Cancer Screening: Annual FOBT 2022 Colorectal Cancer Screening: Colonoscopy 2022 Colorectal Cancer Screening: Sigmoidoscopy 2022 Pneumococcal Vaccine: 50+ Years (1 of 1 - PCV) 024 Influenza Vaccine (#1) 2025 Insurance [facility]
--- OUTSIDE RECORDS SUMMARY | 2025-02-20 19:58 | XMS_ITS | Continuity of Care Document ---
Author Organization [facility] Address [address] [place] [address] Care Team Providers Care Stave Bolt Equalizer Name Role Phone Edelmira Sage Primary Care Provider [phone] Encounters Date Type Department Care Team Description 11/29/2020 12:00 PM EDT Radiology [facility] Ultrasound [address] [place] [address] Leg edema 11/29/2020 10:30 AM EDT Office Visit [address] [address] Marleni Stockton, OFE Synovial cyst of left [...] Active Problems No known active problems Immunizations Immunization Administration Dates Next Due Covid-19, Vector-nr (Armin), 0.5 Ml 09/08/2020 Influenza,recombinant,quad,i njectable ,Prsrv Fr 03/23/2022,03/17/2021,03/15/2020,2018 PCV-15 03/23/2022 Social History Smoking Status as of 02/20/2025 Tobacco Use Types Packs/Day Years Used Date [...] 85 11/29/2020 10:33 AM EDT Temperature 36.6 C (97.8 F) 11/29/2020 10:33 AM EDT Respiratory Rate 18 11/29/2020 10:33 AM EDT Oxygen Saturation 97% 11/29/2020 10:33 AM EDT Inhaled Oxygen Concentration - - Weight 123 kg (272 lb) 04/01/2013 10:08 AM EST Height 188 cm (6' 2 ) 04/01/2013 10:08 AM EST Body Mass Index 34.92 04/01/2013 10:08 AM EST Plan of Treatment Not on file Procedures * Due to [place] state law, this organization might not be sharing negative HIV tests. Procedure Name Priority Date/Time Associated Diagnosis Comments US VENOUS DUPLEX SCAN EXTREMITY VEINS UNILAT/LIMITED STUDY (LEG) LEFT STAT (All results called to provider) 11/29/2020 12:31 PM EDT Leg edema Results * Due to [place] state law, this organization might not be sharing negative HIV tests. * US VENOUS DUPLEX SCAN EXTREMITY VEINS UNILAT/LIMITED STUDY (LEG) LEFT FC (11/29/2020 12:31 PM EDT) 11/29/2020 12:4 6 PM EDT Narrative [facility] - 11/29/2020 12:46 PM EDT CONTRAST: EXAM: LEFT LOWER EXTREMITY VENOUS DOPPLER STUDY: COMPARISON: None TECHNIQUE: Deep veins of the left lower extremity were evaluated from calf level through common femoral vein. FINDINGS: No intraluminal filling defect is identified. The deep veins of the left lower extremity are compressible and show normal phasicity. There is no evidence of deep venous thrombosis. The greater saphenous vein is patent as well. Posterior soft tissue fluid collection measures 6.1 x 2.2 x 2.7 cm. 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 No evidence of DVT. Procedure Note Mo Edmond [...] cyst.No evidence of DVT. us Marleni Stockton NP IMG US ORDERABLES Final Result [facility] Visit Diagnoses Diagnosis Start Date Leg edema Edema 11/29/2020 Synovial cyst of left popliteal space Synovial cyst of popliteal space 11/29/2020 Leg edema Edema 11/29/2020 Care Teams Stave Bolt Equalizer Relationship Specialty Start Date End Date Edelmira Sage [facility] [address] [address] PCP - General Family Medicine 11/29/20
[2025-02-20] MEDS: guaiFEN/Codeine SF 200/20/10ML 10 ML LIQUID 5 ML PO (20:53)
[2025-02-20 21:09] VITALS: PULSE 100; RESP 20; O2SAT 92
[2025-02-20] MEDS: Albuterol/Iprat 2.5/0.5MG 3 ML AMPUL.NEB INHALE (21:10)
[2025-02-20 22:02] VITALS: BP 00/00; PULSE 100; RESP 20; TEMP -17.7; TEMP 0
== END 2025-02-20 22:03 | disposition home or self-care (01) ==
PROVIDERS: Registered Nurse Emergency; Emergency Provider Student in an Organized Health Care Education/Training Program; PCP Hospitalist
DX: J40 Bronchitis, not specified as acute or chronic (principal); R05.9 Cough, unspecified; R06.02 Shortness of breath; R00.0 Tachycardia, unspecified; E11.9 Type 2 diabetes mellitus without complications; Z03.818 Encounter for observation for suspected exposure to other biological agents ruled out; Z87.891 Personal history of nicotine dependence; Z79.84 Long term (current) use of oral hypoglycemic drugs
CPT/HCPCS: 71046; 80053; 84484; 85025; 85610; 87502; 87635; 93005; 94640; 99284

== ENCOUNTER → 2025-02-20 16:54 | Outpatient (BNV) | payer OTHER, SELFPAY | PROVIDERS: Emergency Provider Student in an Organized Health Care Education/Training Program; PCP Hospitalist; Visit Provider Internal Medicine Cardiovascular Disease | DX: R00.0 Tachycardia, unspecified (principal) | CPT/HCPCS: 93010 ==

== ENCOUNTER → 2025-02-20 16:54 | Outpatient (BNV) | payer OTHER, SELFPAY | PROVIDERS: PCP Hospitalist; Visit Provider Radiology Diagnostic Radiology | DX: R05.9 Cough, unspecified (principal) | CPT/HCPCS: 71046 ==